=== PATIENT | male | born 1975 | race Caucasian/White ===

== ENCOUNTER 2018-06-08 05:06 | Emergency (ER) | payer BC ==
[2018-06-08 05:13] VITALS: RESP 16
[2018-06-08] MEDS ORDERED: SODIUM CHLORIDE 0.9% 1,000 ML IV STA (06:11)
[2018-06-08] MEDS ORDERED: MECLIZINE 12.5 MG TAB PO STA ×2 (06:11→08:00)
[2018-06-08] MEDS ORDERED: METOCLOPRAMIDE 5 MG/ML 2 ML VIAL IVP STA (06:12)
--- NOTE | 2018-06-08 06:16 | ED ---
General Adult HPI - General Chief complaint: Dizziness Stated complaint: dizziness Time Seen by Provider: 06/08/18 06:05 Source: patient, RN notes reviewed Mode of arrival: ambulatory Limitations: no limitations - History of Present Illness Initial comments: This is a 42-year-old male presents emergency Department chief complaint of dizziness, syncope. Patient states that he woke up this morning felt very dizzy as the room was spinning states that he stood up started walking and then he Was woken up by his on the ground. Patient states that he is unsure exactly what happened but feels that he passed out. Patient states she's never had this happen the past. Patient denies any chest pain or shortness of breath. Patient states that he did spit up some blood a day or 2 ago. He has admitted to epigastric discomfort for the last 3 days. He states he feels a pressure. He does have some GERD type symptoms. Patient denies fever, chills, recent URI symptoms, sinus congestion or ear pain. She has no change of bowel habits no dysuria. Patient states he has had intermittent headaches and went and saw his PCP who gave him naproxen and Flexeril. - Related Data Previous Rx's Medication Instructions Recorded Meclizine [Antivert] 25 mg PO TID PRN #15 tab 06/08/18 Allergies Allergy/AdvReac Type Severity Reaction Status Date / Time No Known Allergies Allergy Verified 06/08/18 08:22 Review of Systems ROS Statement: Those systems with pertinent positive or pertinent negative responses have been documented in the HPI. ROS Other: All systems not noted in ROS Statement are negative. Past Medical History Past Medical History: No Reported History History of Any Multi-Drug Resistant Organisms: None Reported Past Surgical History: Adenoidectomy, Hernia Repair Additional Past Surgical History / Comment(s): sinus surgery Past Anesthesia/Blood Transfusion Reactions: No Reported Reaction Past Psychological History: No Psychological Hx Reported Smoking Status: Never smoker Past Alcohol Use History: Rare Past Drug Use History: None Reported - Past Family History Father Family Medical History: Congestive Heart Failure (CHF) Additional Family Medical History / Comment(s): Father is 65 yrs old. Mother Family Medical History: No Reported History Additional Family Medical History / Comment(s): Mother is 63 yrs old. General Exam Limitations: no limitations General appearance: alert, in no apparent distress Head exam: Present: atraumatic, normocephalic, normal inspection Eye exam: Present: normal appearance, PERRL, EOMI. Absent: scleral icterus, conjunctival injection, periorbital swelling ENT exam: Present: normal exam, normal oropharynx, mucous membranes moist Neck exam: Present: normal inspection, full ROM. Absent: tenderness, meningismus, lymphadenopathy Respiratory exam: Present: normal lung sounds bilaterally. Absent: respiratory distress, wheezes, rales, rhonchi, stridor Cardiovascular Exam: Present: regular rate, normal rhythm, normal heart sounds. Absent: systolic murmur, diastolic murmur, rubs, gallop, clicks GI/Abdominal exam: Present: soft, tenderness (Mild diffuse with moderate epigastric), normal bowel sounds. Absent: distended, guarding, rebound, rigid Neurological exam: Present: alert, oriented X3, CN II-XII intact, reflexes normal. Absent: motor sensory deficit Skin exam: Present: warm, dry, intact, normal color. Absent: rash Course Vital Signs 06/08/18 06/08/18 06/08/18 05:08 06:52 08:26 Temperature 97.4 F L 97.2 F L Pulse Rate 75 77 Pulse Rate [ 76 Sitting] Pulse Rate [ 75 Standing] Pulse Rate [ 68 Supine] Respiratory 16 16 Rate Blood Pressure 152/87 134/79 Blood Pressure 131/84 [Sitting] Blood Pressure 134/88 [Standing] Blood Pressure 123/60 [Supine] O2 Sat by Pulse 100 99 Oximetry Medical Decision Making - Medical Decision Making 42-year-old male present emergency from for dizziness. Patient symptoms seem to be related to vertigo. Patient symptoms are worse with movement better at rest patient had normal lab work, EKG. Patient did have CT but did not reveal any mass. Does have mild atrophy noted. Patient will be discharged on Antivert return parameters were discussed. - Lab Data Result diagrams: 06/08/18 05:28 06/08/18 05:28 Lab Results 06/08/18 06/08/18 06/08/18 Range/Units 05:28 05:28 05:28 WBC 6.3 (3.8-10.6) k/uL RBC 5.43 (4.30-5.90) m/uL Hgb 15.8 (13.0-17.5) gm/dL Hct 46.2 (39.0-53.0) % MCV 85.0 (80.0-100.0) fL MCH 29.0 (25.0-35.0) pg MCHC 34.1 (31.0-37.0) g/dL RDW 13.8 (11.5-15.5) % Plt Count 212 (150-450) k/uL Neutrophils % 59 % Lymphocytes % 31 % Monocytes % 7 % Eosinophils % 2 % Basophils % 1 % Neutrophils # 3.7 (1.3-7.7) k/uL Lymphocytes # 1.9 (1.0-4.8) k/uL Monocytes # 0.4 (0-1.0) k/uL Eosinophils # 0.1 (0-0.7) k/uL Basophils # 0.0 (0-0.2) k/uL PT 9.7 (9.0-12.0) sec INR 1.0 (<1.2) APTT 23.0 (22.0-30.0) sec D-Dimer 0.22 (<0.60) mg/L FEU Sodium 141 (137-145) mmol/L Potassium 4.2 (3.5-5.1) mmol/L Chloride 106 (98-107) mmol/L Carbon Dioxide 25 (22-30) mmol/L Anion Gap 10 mmol/L BUN 12 (9-20) mg/dL Creatinine 0.71 (0.66-1.25) mg/dL Est GFR (CKD-EPI)AfAm >90 (>60 ml/min/1.73 sqM) Est GFR (CKD-EPI)NonAf >90 (>60 ml/min/1.73 sqM) Glucose 139 H (74-99) mg/dL Calcium 9.1 (8.4-10.2) mg/dL Total Bilirubin 1.0 (0.2-1.3) mg/dL AST 50 (17-59) U/L ALT 94 H (21-72) U/L Alkaline Phosphatase 69 (38-126) U/L Troponin I (0.000-0.034) ng/mL Total Protein 7.6 (6.3-8.2) g/dL Albumin 4.4 (3.5-5.0) g/dL Lipase 99 (23-300) U/L Urine Color Urine Appearance (Clear) Urine pH (5.0-8.0) Ur Specific [place] (1.001-1.035) Urine Protein (Negative) Urine Glucose (UA) (Negative) Urine Ketones (Negative) Urine Blood (Negative) Urine Nitrite (Negative) Urine Bilirubin (Negative) Urine Urobilinogen (<2.0) mg/dL Ur Leukocyte Esterase (Negative) 06/08/18 06/08/18 Range/Units 05:28 06:43 WBC (3.8-10.6) k/uL RBC (4.30-5.90) m/uL Hgb (13.0-17.5) gm/dL Hct (39.0-53.0) % MCV (80.0-100.0) fL MCH (25.0-35.0) pg MCHC (31.0-37.0) g/dL RDW (11.5-15.5) % Plt Count (150-450) k/uL Neutrophils % % Lymphocytes % % Monocytes % % Eosinophils % % Basophils % % Neutrophils # (1.3-7.7) k/uL Lymphocytes # (1.0-4.8) k/uL Monocytes # (0-1.0) k/uL Eosinophils # (0-0.7) k/uL Basophils # (0-0.2) k/uL PT (9.0-12.0) sec INR (<1.2) APTT (22.0-30.0) sec D-Dimer (<0.60) mg/L FEU Sodium (137-145) mmol/L Potassium (3.5-5.1) mmol/L Chloride (98-107) mmol/L Carbon Dioxide (22-30) mmol/L Anion Gap mmol/L BUN (9-20) mg/dL Creatinine (0.66-1.25) mg/dL Est GFR (CKD-EPI)AfAm (>60 ml/min/1.73 sqM) Est GFR (CKD-EPI)NonAf (>60 ml/min/1.73 sqM) Glucose (74-99) mg/dL Calcium (8.4-10.2) mg/dL Total Bilirubin (0.2-1.3) mg/dL AST (17-59) U/L ALT (21-72) U/L Alkaline Phosphatase (38-126) U/L Troponin I <0.012 (0.000-0.034) ng/mL Total Protein (6.3-8.2) g/dL Albumin (3.5-5.0) g/dL Lipase (23-300) U/L Urine Color Yellow Urine Appearance Clear (Clear) Urine pH 6.5 (5.0-8.0) Ur Specific [place] 1.015 (1.001-1.035) Urine Protein Negative (Negative) Urine Glucose (UA) Trace H (Negative) Urine Ketones Negative (Negative) Urine Blood Negative (Negative) Urine Nitrite Negative (Negative) Urine Bilirubin Negative (Negative) Urine Urobilinogen <2.0 (<2.0) mg/dL Ur Leukocyte Esterase Negative (Negative) Disposition Clinical Impression: Vertigo Disposition: HOME SELF-CARE Condition: Stable Instructions: Dizziness (ED) Additional Instructions: Please return to the Emergency Department if symptoms worsen or any other concerns. Prescriptions: Meclizine [Antivert] 25 mg PO TID PRN #15 tab PRN Reason: Vertigo Is patient prescribed a controlled substance at d/c from ED?: No Referrals: Ema Mccall MD [Primary Care Provider] - 1-2 days Time of Disposition: 09:20
[2018-06-08 07:04] LABS: Appearance,Urine Clear (Clear); Bilirubin,Urine Negative (Negative); Blood,Urine Negative (Negative); Color,Urine Yellow; Glucose,Urine (UA) Trace (Negative); Ketones,Urine Negative (Negative); Leukocyte Esterase,Urine Negative (Negative); Nitrite,Urine Negative (Negative); PH, Urine 6.5 (5.0-8.0); Protein,Urine Negative (Negative); Specific Gravity,Urine 1.015 (1.001-1.035); Urobilinogen,Urine <2.0 mg/dL (<2.0)
[2018-06-08 07:11] LABS: ALT 94 U/L (21-72); AST 50 U/L (17-59); Albumin 4.4 g/dL (3.5-5.0); Alkaline Phosphatase 69 U/L (38-126); Anion Gap 10 mmol/L; Blood Urea Nitrogen 12 mg/dL (9-20); Calcium 9.1 mg/dL (8.4-10.2); Carbon Dioxide 25 mmol/L (22-30); Chloride 106 mmol/L (98-107); Glucose 139 mg/dL (74-99); Lipase 99 U/L (23-300); Potassium 4.2 mmol/L (3.5-5.1); Sodium 141 mmol/L (137-145); Total Protein 7.6 g/dL (6.3-8.2)
[2018-06-08 07:17] LABS: D-Dimer 0.22 mg/L FEU (<0.60); Prothrombin Time 9.7 sec (9.0-12.0)
[2018-06-08 07:29] LABS: Basophils % (A) 1 %; Eosinophils # (A) 0.1 k/uL (0-0.7); Eosinophils % (A) 2 %; HCT 46.2 % (39.0-53.0); HGB 15.8 gm/dL (13.0-17.5); Lymphocytes # (A) 1.9 k/uL (1.0-4.8); Lymphocytes % (A) 31 %; MCHC 34.1 g/dL (31.0-37.0); Monocytes # (A) 0.4 k/uL (0-1.0); Monocytes % (A) 7 %; Neutrophils # (A) 3.7 k/uL (1.3-7.7); Neutrophils % (A) 59 %; Platelet Count 212 k/uL (150-450); RBC 5.43 m/uL (4.30-5.90); RDW 13.8 % (11.5-15.5); WBC 6.3 k/uL (3.8-10.6)
[2018-06-08] MEDS ORDERED: ONDANSETRON 4 MG/2 ML VIAL IVP STA (08:00)
--- NOTE | 2018-06-08 08:59 | CT ---
EXAMINATION TYPE: CT brain wo con DATE OF EXAM: 06/08/2018 COMPARISON: None. HISTORY: Syncope and collapse, headache for [address] DLP: 1269 mGycm. Automated Exposure Control for Dose Reduction was Utilized. TECHNIQUE: CT scan of the head is performed without contrast. FINDINGS: There is no acute intracranial hemorrhage or midline shift identified. Mild ventricular a nd sulcal prominence is present. Septum pellucidum vergae is noted. The globes are intact and the vi sualized sinuses are clear. Calvarium is intact. IMPRESSION: No acute intracranial hemorrhage or midline shift is seen. Incidental mild diffuse cereb ral atrophy.
[2018-06-08 09:29] VITALS: BP 115/70; PULSE 70; TEMP 97.9
== END 2018-06-08 09:28 | disposition home or self-care (01) ==
LOC: EC 05:06
DX: R42 Dizziness and giddiness (principal); G31.9 Degenerative disease of nervous system, unspecified; R51 Headache
CPT/HCPCS: 36415; 93005; 85379; 80053; 83690; 84484; 85025; 85610; 85730; 81003; 70450; 99284; 96374; 96375; 96361 ×3; J2765; J2405

== ENCOUNTER → 2018-11-22 | Outpatient (CLI) | payer OTHER ==
--- NOTE | 2018-11-22 15:10 | CT ---
EXAMINATION TYPE: CT brain cspine wo con DATE OF EXAM: 11/22/2018 COMPARISON: 06/08/2018 HISTORY: Fall. Head and neck pain. CT DLP: 2187 mGycm. Automated Exposure Control for Dose Reduction was Utilized. TECHNIQUE: CT scan of the head and cervical spine are performed without contrast. FINDINGS: There is no acute intracranial hemorrhage, mass effect, or midline shift identified. The ventricles and sulci are symmetrically prominent compatible with mild cerebral volume loss as seen on the prior. The globes are intact and the visualized sinuses are clear. Incidental note of a normal variant cav um septum pellucidum et verge. There is leftward nasal septal deviation and postsurgical change of the right nasal turbinates. Cervical spine is visualized in its entirety from C1 through upper thoracic levels and demonstrates s atisfactory alignment without evidence of acute fracture or dislocation. Prevertebral soft tissue ap pears within normal limits. The C1-C2 articulation is unremarkable. Multiple tonsilloliths are inci dentally noted. There is slight reversal of usual cervical lordosis. Anterior osteophytes are seen at the 4 C5. Small posterior disc osteophyte complex is also seen at this level without gross evidence of spinal canal stenosis. Minimal uncovertebral hypertrophy is noted. IMPRESSION: 1. There is no acute fracture or dislocation evident in the cervical spine. 2. No acute intracranial hemorrhage, mass effect, or midline shift is seen. 3. Mild cerebral atrophy is slightly out of proportion to the patient's age although unchanged from t he prior exam. 4. Mild multilevel degenerative disc disease of the cervical spine and reversal usual cervical lordos is that may be on the basis of muscular sprain, spasm or patient positioning.
--- NOTE | 2018-11-22 15:32 | XR ---
EXAMINATION TYPE: XR shoulder complete RT, XR scapula RT, XR clavicle RT DATE OF EXAM: 11/22/2018 CLINICAL HISTORY: Slip and fall injury today with pain TECHNIQUE: Three views of the right shoulder are obtained. 2 views of right scapula and 2 views righ t clavicle are obtained COMPARISON: None. FINDINGS: There is no acute fracture/dislocation evident in the right shoulder. Mild narrowing and s purring at acromioclavicular joint is present. Glenohumeral joint is maintained. The visualized ribs are intact and unremarkable. Images of right scapula show no acute displaced fracture. Overlying soft tissue is unremarkable. Images of right clavicle show no acute fracture. Supraclavicular soft tissue is unremarkable. IMPRESSION: There is no acute fracture or dislocation in the right clavicle, scapula, or shoulder.
--- NOTE | 2018-11-22 15:33 | XR ---
EXAMINATION TYPE: XR humerus RT DATE OF EXAM: 11/22/2018 CLINICAL HISTORY: Fall injury with pain TECHNIQUE: Two views of the right humerus are obtained. COMPARISON: Same day right shoulder x-ray.. FINDINGS: There is no acute fracture or dislocation seen in the right humerus. Mild spurring of righ t elbow joint is present. The overlying soft tissue appears within normal limits. IMPRESSION: No acute fracture or dislocation is evident in the right humerus.
--- NOTE | 2018-11-22 15:34 | XR ---
EXAMINATION TYPE: XR femur RT DATE OF EXAM: 11/22/2018 CLINICAL HISTORY: Fall with subsequent right femur pain. TECHNIQUE: Two views of the right femur are obtained. COMPARISON: None FINDINGS: There is no acute fracture or dislocation seen in the right femur. The right hip and knee joints appear within normal limits. The overlying soft tissue appears unremarkable. Small osteophyt es are seen at the chondral labral junction of the superior acetabulum. IMPRESSION: There is no acute fracture or dislocation in the right femur. Small osteophytes of the r ight hip chondral labral junction are seen. If there is suspicion for labral tear MR arthrography cou ld be performed.
== END | disposition home or self-care (01) ==
LOC: RADCTMAIN 14:22
PROVIDERS: ATTEND Emergency Medicine
DX: S13.4XXA Sprain of ligaments of cervical spine, initial encounter (principal); G31.9 Degenerative disease of nervous system, unspecified; S70.11XA Contusion of right thigh, initial encounter; S40.011A Contusion of right shoulder, initial encounter
CPT/HCPCS: 70450; 72125

== ENCOUNTER → 2018-11-29 | Outpatient (CLI) | payer OTHER ==
--- NOTE | 2018-11-29 22:25 | MR ---
EXAMINATION TYPE: MR shoulder RT wo con DATE OF EXAM: 11/29/2018 COMPARISON: Right shoulder x-ray 1 week ago. HISTORY: Rt shoulder pain/limited movement, fell on ice 1 week ago TECHNIQUE: Multiplanar, multisequence imaging of the right shoulder is performed without contrast. FINDINGS: Rotator Cuff: Supraspinatus tendon shows increased signal distally without suspicious partial or full -thickness retracted tear. Infraspinatus tendon is intact. Subscapularis tendon is felt intact. Rotat or cuff muscle bulk is preserved. Acromioclavicular Joint: Mild narrowing and capsular hypertrophy is present. Inferior fat plane is ma intained. Distal acromion morphology is unremarkable. Glenohumeral Joint: There is small to moderate glenohumeral joint effusion. No significant spurring i s seen. Some subchondral cystic change anterior superior osseous glenoid is present Labrum: The superior labrum shows undercutting with increased fluid signal paracoronal image 12 suspi cious for tear. Biceps Tendon: The long head of biceps is in normal location within bicipital groove. Bone marrow signal:. Subchondral cystic change lateral humeral head is present. Other: No additional significant abnormality is appreciated. IMPRESSION: Probable superior labral tear. Mild tendinosis distal supraspinatus tendon without rotato r cuff tear.
== END | disposition home or self-care (01) ==
LOC: RADMRIMAIN 16:38
PROVIDERS: ATTEND Emergency Medicine
DX: M67.813 Other specified disorders of tendon, right shoulder (principal); S13.4XXD Sprain of ligaments of cervical spine, subsequent encounter; S70.11XD Contusion of right thigh, subsequent encounter

== ENCOUNTER 2019-04-22 12:38 | Emergency (ER) | payer BC, OTHER ==
[2019-04-22] MEDS ORDERED: SODIUM CHLORIDE 0.9% 500 ML 500 ML IV STA (13:14)
[2019-04-22] MEDS ORDERED: SODIUM CHLORIDE 0.9% 1,000 ML IV STA ×3 (13:14→14:53)
[2019-04-22 13:38] LABS: Basophils % (A) 1 %; Eosinophils # (A) 0.1 k/uL (0-0.7); Eosinophils % (A) 1 %; HCT 44.4 % (39.0-53.0); HGB 16.1 gm/dL (13.0-17.5); Lymphocytes # (A) 1.2 k/uL (1.0-4.8); Lymphocytes % (A) 23 %; MCH 29.8 pg (25.0-35.0); MCHC 36.3 g/dL (31.0-37.0); MCV 82.2 fL (80.0-100.0); Mean Platelet Volume 7.8; Monocytes # (A) 0.4 k/uL (0-1.0); Monocytes % (A) 7 %; Neutrophils # (A) 3.4 k/uL (1.3-7.7); Neutrophils % (A) 66 %; Platelet Count 144 k/uL (150-450); RBC 5.41 m/uL (4.30-5.90); RDW 14.7 % (11.5-15.5); WBC 5.2 k/uL (3.8-10.6)
[2019-04-22 13:57] LABS: ALT 53 U/L (21-72); AST 56 U/L (17-59); African American GFR (CKD) >90 (>60 ml/min/1.73 sqM); Albumin 4.5 g/dL (3.5-5.0); Alkaline Phosphatase 82 U/L (38-126); Anion Gap 12 mmol/L; Blood Urea Nitrogen 13 mg/dL (9-20); Calcium 8.9 mg/dL (8.4-10.2); Carbon Dioxide 21 mmol/L (22-30); Chloride 105 mmol/L (98-107); Creatine Kinase 793 U/L (55-170); Glucose 186 mg/dL (74-99); Magnesium 1.8 mg/dL (1.6-2.3); Phosphorus 4.4 mg/dL (2.5-4.5); Potassium 4.4 mmol/L (3.5-5.1); Sodium 138 mmol/L (137-145); Total Bilirubin 1.6 mg/dL (0.2-1.3); Total Protein 7.8 g/dL (6.3-8.2)
--- NOTE | 2019-04-22 14:10 | ED ---
Dizziness HPI - General Chief Complaint: Recheck/Abnormal Lab/Rx Stated Complaint: Abnormal Glucose Time Seen by Provider: 04/22/19 13:14 Source: patient, RN notes reviewed, old records reviewed Mode of arrival: ambulatory Limitations: no limitations - History of Present Illness Initial Comments: This is a 43-year-old male to ER for evaluation. This is evaluation regarding dizziness. Patient was sent ER for evaluation by [facility]. Patient is had 3 is a days with change of position dizziness lightheadedness occasional room spinning. No recent travel history no sick contacts no significant headaches. Patient again was seen at [facility] sent to ER secondary to elevated blood sugar, ketones in urine. Patient does admit to mild decreased appetite denies drug or alcohol abuse. Patient has no medical history takes no medications MD Complaint: dizziness, lightheadedness, other (Change of position) -: days(s) (3) Timing: gradual onset Description: lightheadedness History of Same: No History of Trauma: No Severity: mild Improves With: remaining still Worsens With: movement Associated Symptoms: denies other symptoms - Related Data Home Medications Medication Instructions Recorded Confirmed Ibuprofen [Motrin Ib] 400 mg PO Q8H 04/22/19 04/22/19 Allergies Allergy/AdvReac Type Severity Reaction Status Date / Time No Known Allergies Allergy Verified 04/22/19 15:04 Review of Systems ROS Statement: Those systems with pertinent positive or pertinent negative responses have been documented in the HPI. ROS Other: All systems not noted in ROS Statement are negative. Past Medical History Past Medical History: No Reported History History of Any Multi-Drug Resistant Organisms: None Reported Past Surgical History: Adenoidectomy, Hernia Repair Additional Past Surgical History / Comment(s): sinus surgery Past Anesthesia/Blood Transfusion Reactions: No Reported Reaction Past Psychological History: No Psychological Hx Reported Smoking Status: Never smoker Past Alcohol Use History: Rare Past Drug Use History: None Reported - Past Family History Father Family Medical History: Congestive Heart Failure (CHF) Additional Family Medical History / Comment(s): Father is 65 yrs old. Mother Family Medical History: No Reported History Additional Family Medical History / Comment(s): Mother is 63 yrs old. General Exam Limitations: no limitations General appearance: alert, in no apparent distress Head exam: Present: atraumatic, normocephalic, normal inspection Eye exam: Present: normal appearance, PERRL, EOMI. Absent: scleral icterus, conjunctival injection, periorbital swelling ENT exam: Present: normal exam, mucous membranes moist Neck exam: Present: normal inspection. Absent: tenderness, meningismus, lymphadenopathy Respiratory exam: Present: normal lung sounds bilaterally. Absent: respiratory distress, wheezes, rales, rhonchi, stridor Cardiovascular Exam: Present: regular rate, normal rhythm, normal heart sounds. Absent: systolic murmur, diastolic murmur, rubs, gallop, clicks GI/Abdominal exam: Present: soft, normal bowel sounds. Absent: distended, tenderness, guarding, rebound, rigid Extremities exam: Present: normal inspection, full ROM, normal capillary refill. Absent: tenderness, pedal edema, joint swelling, calf tenderness Back exam: Present: normal inspection Neurological exam: Present: alert, oriented X3, CN II-XII intact Psychiatric exam: Present: normal affect, normal mood Skin exam: Present: warm, dry, intact, normal color. Absent: rash Course Vital Signs 04/22/19 04/22/19 04/22/19 13:00 13:28 13:30 Temperature 98.3 F Pulse Rate 87 79 79 Respiratory 18 26 H 20 Rate Blood Pressure 131/86 127/76 O2 Sat by Pulse 96 95 94 L Oximetry - Reevaluation(s) Reevaluation #1: 04/22/19 15:15 Medical records reviewed Reevaluation #2: 04/22/19 15:15 Patient symptoms are improved with hydration, no active ataxia on ambulation. Medical Decision Making - Medical Decision Making 40 female the ER for evaluation. Patient symptoms are improved here in the ER encourage increase hydration. Patient can be discharged home - Lab Data Result diagrams: 04/22/19 13:20 04/22/19 13:20 Lab Results 04/22/19 04/22/19 04/22/19 Range/Units 13:20 13:20 13:20 WBC 5.2 (3.8-10.6) k/uL RBC 5.41 (4.30-5.90) m/uL Hgb 16.1 (13.0-17.5) gm/dL Hct 44.4 (39.0-53.0) % MCV 82.2 (80.0-100.0) fL MCH 29.8 (25.0-35.0) pg MCHC 36.3 (31.0-37.0) g/dL RDW 14.7 (11.5-15.5) % Plt Count 144 L (150-450) k/uL Neutrophils % 66 % Lymphocytes % 23 % Monocytes % 7 % Eosinophils % 1 % Basophils % 1 % Neutrophils # 3.4 (1.3-7.7) k/uL Lymphocytes # 1.2 (1.0-4.8) k/uL Monocytes # 0.4 (0-1.0) k/uL Eosinophils # 0.1 (0-0.7) k/uL Basophils # 0.0 (0-0.2) k/uL Sodium 138 (137-145) mmol/L Potassium 4.4 (3.5-5.1) mmol/L Chloride 105 (98-107) mmol/L Carbon Dioxide 21 L (22-30) mmol/L Anion Gap 12 mmol/L BUN 13 (9-20) mg/dL Creatinine 0.84 (0.66-1.25) mg/dL Est GFR (CKD-EPI)AfAm >90 (>60 ml/min/1.73 sqM) Est GFR (CKD-EPI)NonAf >90 (>60 ml/min/1.73 sqM) Glucose 186 H (74-99) mg/dL Calcium 8.9 (8.4-10.2) mg/dL Phosphorus 4.4 (2.5-4.5) mg/dL Magnesium 1.8 (1.6-2.3) mg/dL Total Bilirubin 1.6 H (0.2-1.3) mg/dL AST 56 (17-59) U/L ALT 53 (21-72) U/L Alkaline Phosphatase 82 (38-126) U/L Creatine Kinase 793 H (55-170) U/L Troponin I <0.012 (0.000-0.034) ng/mL Total Protein 7.8 (6.3-8.2) g/dL Albumin 4.5 (3.5-5.0) g/dL Acetone, Qual Negative (Negative) - Radiology Data Radiology results: report reviewed (CT brain negative for acute disease), image reviewed Disposition Clinical Impression: Hyperglycemia, Dehydration, Dizziness Disposition: HOME SELF-CARE Condition: Good Instructions (If sedation given, give patient instructions): Vertigo (ED), Nondiabetic Hyperglycemia (ED), Dizziness (ED) Is patient prescribed a controlled substance at d/c from ED?: No Referrals: Ema Mccall MD [Primary Care Provider] - 1-2 days
--- NOTE | 2019-04-22 14:12 | CT ---
EXAMINATION TYPE: CT brain wo con DATE OF EXAM: 04/22/2019 COMPARISON: November 22, 2018 HISTORY: Pain Unenhanced CT of the brain was performed. The ventricles, basal cisterns and sulci overlying the cerebral convexities demonstrate a normal appe arance. There is no evidence for intracranial hemorrhage or sulcal effacement. No mass effects are seen. Osseous calvarium is intact. If symptoms persist consider MRI as clinically warranted. IMPRESSION: 1. No acute intracranial process is seen at this time.
[2019-04-22] MEDS ORDERED: MECLIZINE 12.5 MG TAB PO STA (14:53)
[2019-04-22] MEDS ORDERED: ONDANSETRON 4 MG/2 ML VIAL IVP STA (14:53)
[2019-04-22 15:58] VITALS: BP 116/75; PULSE 80; RESP 16; TEMP 98
== END 2019-04-22 15:58 | disposition home or self-care (01) ==
LOC: EC 12:38
DX: R73.9 Hyperglycemia, unspecified (principal); E86.0 Dehydration; R42 Dizziness and giddiness; R63.0 Anorexia; Z79.1 Long term (current) use of non-steroidal anti-inflammatories (NSAID); Z53.8 Procedure and treatment not carried out for other reasons
CPT/HCPCS: 36415; 70450; 80053; 82009; 82550; 83735; 84100; 84484; 85025; 93005; 96360; 96361; 99284

== ENCOUNTER 2020-02-02 10:35 | Emergency (ER) | payer OTHER ==
[2020-02-02] MEDS ORDERED: KETOROLAC 30 MG/ML 1 ML VIAL IVP STA (10:37)
--- NOTE | 2020-02-02 10:44 | ED ---
Chest Pain HPI - General Stated Complaint: Chest pain Time Seen by Provider: 02/02/20 10:35 Source: patient, EMS, RN notes reviewed, Caregiver - History of Present Illness Initial Comments: This a 44-year-old male with a benign past medical history states he had the onset of moderate left-sided sharp chest pain and just after 9:00 this morning while he was on break at work he works as a hiatal services delivery driver. He states the pain was 6/10 in severity radiated from his left chest around to his left shoulder blade. Increase with movement and deep breathing. No recent fevers chills nausea vomiting sweats cough or phlegm production he is a nonsmoker. No trauma no heavy lifting. He states he is somewhat this in the past undiagnosed. No family history of heart disease early age no other modifying factors at this time. MD Complaint: chest pain - Related Data Home Medications Medication Instructions Recorded Confirmed Multivitamins, Thera [Multivitamin 1 tab PO W/LUNCH 02/02/20 02/02/20 (formulary)] Previous Rx's Medication Instructions Recorded Azithromycin [Zithromax Z-pack] 250 mg PO DIRECTED #6 tab 02/02/20 Ibuprofen 800 mg PO Q6HR PRN #20 tablet 02/02/20 Orphenadrine [Norflex] 100 mg PO Q12H #7 tablet.er 02/02/20 Allergies Allergy/AdvReac Type Severity Reaction Status Date / Time No Known Allergies Allergy Verified 02/02/20 11:19 Review of Systems ROS Statement: Those systems with pertinent positive or pertinent negative responses have been documented in the HPI. ROS Other: All systems not noted in ROS Statement are negative. EKG Findings - EKG Results: EKG: interpreted by CATY BRENNAN, sinus rhythm, normal axis, normal QRS, no acute changes (Normal sinus rhythm 85. Interval 144 QRS 104 QT/QTC 364/433) Past Medical History Past Medical History: No Reported History History of Any Multi-Drug Resistant Organisms: None Reported Past Surgical History: Adenoidectomy, Hernia Repair Additional Past Surgical History / Comment(s): sinus surgery Past Anesthesia/Blood Transfusion Reactions: No Reported Reaction Past Psychological History: No Psychological Hx Reported Smoking Status: Never smoker Past Alcohol Use History: Rare Past Drug Use History: None Reported - Past Family History Father Family Medical History: Congestive Heart Failure (CHF) Additional Family Medical History / Comment(s): Father is 65 yrs old. Mother Family Medical History: No Reported History Additional Family Medical History / Comment(s): Mother is 63 yrs old. General Exam - General Exam Comments Initial Comments: This is a well-developed well-nourished awake alert oriented 3 male General appearance: alert, in no apparent distress Head exam: Present: atraumatic, normocephalic, normal inspection Eye exam: Present: normal appearance, PERRL, EOMI. Absent: scleral icterus, conjunctival injection, periorbital swelling ENT exam: Present: normal exam, mucous membranes moist Neck exam: Present: normal inspection, full ROM, other. Absent: tenderness, meningismus, lymphadenopathy Respiratory exam: Present: normal lung sounds bilaterally, chest wall tenderness (No stridor JVD or bruits is tenderness palpation along the left costal sternal margin no step-off or crepitation however.). Absent: respiratory distress, wheezes, rales, rhonchi, stridor Cardiovascular Exam: Present: regular rate, normal rhythm, normal heart sounds. Absent: systolic murmur, diastolic murmur, rubs, gallop, clicks GI/Abdominal exam: Present: soft, normal bowel sounds. Absent: distended, tenderness, guarding, rebound, rigid Extremities exam: Present: normal inspection, full ROM, normal capillary refill. Absent: tenderness, pedal edema, joint swelling, calf tenderness Back exam: Present: normal inspection, tenderness (Tenderness palpation over the left scapular paraspinous muscles) Neurological exam: Present: alert, oriented X3, CN II-XII intact Psychiatric exam: Present: normal affect, normal mood Skin exam: Present: warm, dry, intact, normal color. Absent: rash Course Vital Signs 02/02/20 10:44 Temperature 98 F Pulse Rate 84 Respiratory 18 Rate Blood Pressure 128/84 O2 Sat by Pulse 97 Oximetry Chest Pain MDM - MDM I did discuss Pfizer the patient initially did not get much relief from the Toradol but Norflex and helped him quite a bit. The presentation is consistent with musculoskeletal pain and costochondritis she will be discharged on anti- inflammatories as well as muscle relaxers he is a follow-up with his doctor return when necessary additionally x-ray did show some evidence of a possible developing pneumonia though the patient's had no fevers chills no sweats no cough or phlegm production. Discussed that he'll get a prescription for an antibiotic to be taken should he started developing symptoms. He is in agreement with this. Disposition Clinical Impression: Costochondritis, Chest wall syndrome Disposition: HOME SELF-CARE Condition: Good Instructions (If sedation given, give patient instructions): Costochondritis (ED), Chest Wall Pain (ED) Prescriptions: Ibuprofen 800 mg PO Q6HR PRN #20 tablet PRN Reason: Pain Orphenadrine [Norflex] 100 mg PO Q12H #7 tablet.er Azithromycin [Zithromax Z-pack] 250 mg PO DIRECTED #6 tab Is patient prescribed a controlled substance at d/c from ED?: No Referrals: Ema Mccall MD [Primary Care Provider] - 1-2 days
[2020-02-02 10:49] VITALS: RESP 18
[2020-02-02 11:06] LABS: Basophils % (A) 0 %; Eosinophils # (A) 0.1 k/uL (0-0.7); Eosinophils % (A) 1 %; HCT 44.7 % (39.0-53.0); HGB 15.4 gm/dL (13.0-17.5); Hyperchromasia Slight; Lymphocytes # (A) 1.6 k/uL (1.0-4.8); Lymphocytes % (A) 21 %; MCHC 34.5 g/dL (31.0-37.0); MCV 84.2 fL (80.0-100.0); Mean Platelet Volume 8.3; Monocytes # (A) 0.3 k/uL (0-1.0); Monocytes % (A) 4 %; Neutrophils # (A) 5.5 k/uL (1.3-7.7); Neutrophils % (A) 72 %; Platelet Count 192 k/uL (150-450); RBC 5.32 m/uL (4.30-5.90); RDW 13.1 % (11.5-15.5); WBC 7.6 k/uL (3.8-10.6)
[2020-02-02 11:16] LABS: ALT 53 U/L (4-49); AST 31 U/L (17-59); African American GFR (CKD) >90 (>60 ml/min/1.73 sqM); Albumin 4.4 g/dL (3.5-5.0); Alkaline Phosphatase 114 U/L (38-126); Anion Gap 7 mmol/L; Blood Urea Nitrogen 17 mg/dL (9-20); Calcium 8.8 mg/dL (8.4-10.2); Carbon Dioxide 22 mmol/L (22-30); Chloride 103 mmol/L (98-107); Creatine Kinase 79 U/L (55-170); Glucose 297 mg/dL (74-99); Magnesium 1.8 mg/dL (1.6-2.3); Non-African American GFR(CKD) >90 (>60 ml/min/1.73 sqM); Potassium 4.4 mmol/L (3.5-5.1); Sodium 132 mmol/L (137-145); Total Bilirubin 0.8 mg/dL (0.2-1.3); Total Protein 7.5 g/dL (6.3-8.2)
--- NOTE | 2020-02-02 11:20 | XR ---
EXAMINATION TYPE: XR chest 2V DATE OF EXAM: 02/02/2020 COMPARISON: 03/31/2016 HISTORY: Chest pain TECHNIQUE: Frontal and lateral views of the chest are obtained. FINDINGS: Focal opacity right mid lung zone as well as increased markings at the lung bases may reflect develop ing infiltrate. Correlate clinically. No evidence for pneumothorax. No pleural effusion. The cardiac silhouette size is within normal limits. The osseous structures are grossly intact. IMPRESSION: 1. Focal opacity right mid lung zone as well as increased markings at the lung bases may reflect dev eloping infiltrate. Correlate clinically.
[2020-02-02 11:24] LABS: D-Dimer 0.34 mg/L FEU (<0.60); INR 0.9 (<1.2); Partial Thromboplastin Time 22.5 sec (22.0-30.0); Prothrombin Time 9.7 sec (9.0-12.0)
[2020-02-02] MEDS ORDERED: ORPHENADRINE 30 MG/ML 2 ML VIAL IVP STA (11:54)
[2020-02-02 13:25] VITALS: BP 136/86; PULSE 82; TEMP 98.1
== END 2020-02-02 13:25 | disposition home or self-care (01) ==
LOC: EC 10:35
DX: M94.0 Chondrocostal junction syndrome [Tietze] (principal)
CPT/HCPCS: 36415; 93005; 85379; 83880; 80053; 82550; 83690; 83735; 84484; 85025; 85610; 85730; 71046; 99284; 96374; 96375; J2360; J1885

== ENCOUNTER 2021-09-24 01:43 | Emergency (ER) | payer OTHER ==
[2021-09-24 01:57] VITALS: BP 134/95; PULSE 104; RESP 18; TEMP 98.3
[2021-09-24] MEDS ORDERED: IBUPROFEN 800 MG TAB PO STA (02:42)
[2021-09-24] MEDS ORDERED: ACETAMINOPHEN TAB 500 MG TAB PO STA (02:42)
--- NOTE | 2021-09-24 02:42 | ED ---
Weakness HPI - General Chief complaint: Recheck/Abnormal Lab/Rx Stated complaint: muscle pain Time Seen by Provider: 09/24/21 02:20 Source: patient, EMS, RN notes reviewed, old records reviewed Mode of arrival: EMS Limitations: no limitations - History of Present Illness Initial comments: This is a 45-year-old male DF for evaluation of significant back pain abdominal pain leg pain myalgias body aches pains chills no fevers. No recent travel history or sick contacts. Patient does not feel significantly well. Patient has no known significant coronavirus exposure MD Complaint: generalized weakness, lack of energy, difficulty walking -: days(s) Location: generalized Severity: moderate Severity scale (1-10): 4 Quality: tingling, numbness, aching Consistency: constant Improves with: none Context: recent illness Associated Symptoms: fever/chills, nausea/vomiting, myalgias - Related Data Previous Rx's Medication Instructions Recorded Nystatin [Nystatin Oral Susp] 6 ml PO QID 10 Days #250 ml 10/03/21 Allergies Allergy/AdvReac Type Severity Reaction Status Date / Time No Known Allergies Allergy Verified 10/06/21 15:19 Review of Systems ROS Statement: Those systems with pertinent positive or pertinent negative responses have been documented in the HPI. ROS Other: All systems not noted in ROS Statement are negative. Past Medical History Past Medical History: No Reported History History of Any Multi-Drug Resistant Organisms: None Reported Past Surgical History: Adenoidectomy, Hernia Repair Additional Past Surgical History / Comment(s): sinus surgery Past Anesthesia/Blood Transfusion Reactions: No Reported Reaction Past Psychological History: No Psychological Hx Reported Smoking Status: Never smoker Past Alcohol Use History: Rare Past Drug Use History: None Reported - Past Family History Father Family Medical History: Congestive Heart Failure (CHF) Additional Family Medical History / Comment(s): Father is 65 yrs old. Mother Family Medical History: No Reported History Additional Family Medical History / Comment(s): Mother is 63 yrs old. General Exam Limitations: no limitations General appearance: alert, in no apparent distress Head exam: Present: atraumatic, normocephalic, normal inspection Eye exam: Present: normal appearance, PERRL, EOMI. Absent: scleral icterus, conjunctival injection, periorbital swelling ENT exam: Present: normal exam, mucous membranes moist Neck exam: Present: normal inspection. Absent: tenderness, meningismus, lymphadenopathy Respiratory exam: Present: normal lung sounds bilaterally. Absent: respiratory distress, wheezes, rales, rhonchi, stridor Cardiovascular Exam: Present: regular rate, normal rhythm, normal heart sounds. Absent: systolic murmur, diastolic murmur, rubs, gallop, clicks GI/Abdominal exam: Present: soft, normal bowel sounds. Absent: distended, tenderness, guarding, rebound, rigid Extremities exam: Present: normal inspection, full ROM, normal capillary refill. Absent: tenderness, pedal edema, joint swelling, calf tenderness Back exam: Present: normal inspection Neurological exam: Present: alert, oriented X3, CN II-XII intact Psychiatric exam: Present: normal affect, normal mood Skin exam: Present: warm, dry, intact, normal color. Absent: rash Course Vital Signs 09/24/21 01:52 Temperature 98.3 F Pulse Rate 104 H Respiratory 18 Rate Blood Pressure 134/95 O2 Sat by Pulse 98 Oximetry - Reevaluation(s) Reevaluation #1: Medical record is reviewed Patient symptoms are significantly improved here in the ER Patient informed results and questions answered Medical Decision Making - Medical Decision Making 45 male to the ER with coronavirus symptoms and findings. Patient is negative for coronavirus here in the ER and can be discharged home - Lab Data Lab Results 09/24/21 09/24/21 Range/Units 03:06 04:15 Coronavirus (PCR) Not Detected Not Detected (Not Detectd) Disposition Clinical Impression: Viral infection Disposition: HOME SELF-CARE Condition: Good Instructions (If sedation given, give patient instructions): Coronavirus Disease 2019 (COVID-19) Is patient prescribed a controlled substance at d/c from ED?: No Referrals: Ema Mccall MD [Primary Care Provider] - 1-2 days
[2021-09-24] MEDS ORDERED: dexAMETHasone 2 MG TAB PO STA (03:56)
[2021-09-24] MEDS ORDERED: KETOROLAC 30 MG/ML 1 ML VIAL IM STA (03:56)
--- NOTE | 2021-09-24 04:49 | XR ---
EXAMINATION TYPE: XR chest 1V portable DATE OF EXAM: 09/24/2021 COMPARISON: 02/02/2020 HISTORY: Chest pain TECHNIQUE: FINDINGS: There is no heart failure nor confluent pneumonic infiltrate. Costophrenic angles are clear . Heart size is normal. Bony thorax is intact. IMPRESSION: No active cardiopulmonary disease. No change.
== END 2021-09-24 05:02 | disposition home or self-care (01) ==
LOC: EC 01:43
DX: B34.9 Viral infection, unspecified (principal)
CPT/HCPCS: 87635; 71045; 99284; 96372; U0003; U0005; J1885; J8540

== ENCOUNTER 2021-10-03 06:42 | Emergency (ER) | payer OTHER ==
[2021-10-03] MEDS ORDERED: KETOROLAC 15 MG/ML 1 ML VIAL IVP STA (07:01)
[2021-10-03] MEDS ORDERED: SODIUM CHLORIDE 0.9% 1,000 ML IV STA (07:01)
[2021-10-03 07:48] LABS: Basophils % (A) 0 %; Eosinophils # (A) 0.1 k/uL (0-0.7); Eosinophils % (A) 1 %; HCT 49.3 % (39.0-53.0); HGB 17.5 gm/dL (13.0-17.5); Lymphocytes % (A) 10 %; MCH 30.2 pg (25.0-35.0); MCHC 35.5 g/dL (31.0-37.0); MCV 85.1 fL (80.0-100.0); Mean Platelet Volume 8.7; Monocytes # (A) 0.6 k/uL (0-1.0); Monocytes % (A) 6 %; Neutrophils # (A) 7.7 k/uL (1.3-7.7); Neutrophils % (A) 82 %; Platelet Count 158 k/uL (150-450); RBC 5.79 m/uL (4.30-5.90); WBC 9.5 k/uL (3.8-10.6)
[2021-10-03 08:08] LABS: ALT 108 U/L (4-49); AST 237 U/L (17-59); African American GFR (CKD) >90 (>60 ml/min/1.73 sqM); Albumin 3.4 g/dL (3.5-5.0); Alkaline Phosphatase 78 U/L (38-126); Anion Gap 10 mmol/L; Blood Urea Nitrogen 15 mg/dL (9-20); C Reactive Protein 3.1 mg/dL (<1.0); Calcium 8.3 mg/dL (8.4-10.2); Carbon Dioxide 21 mmol/L (22-30); Chloride 99 mmol/L (98-107); Glucose 312 mg/dL (74-99); LDH 1178 U/L (313-618); Non-African American GFR(CKD) >90 (>60 ml/min/1.73 sqM); Potassium 4.4 mmol/L (3.5-5.1); Sodium 130 mmol/L (137-145); Total Bilirubin 0.7 mg/dL (0.2-1.3); Total Protein 6.2 g/dL (6.3-8.2)
--- NOTE | 2021-10-03 10:37 | XR ---
EXAMINATION TYPE: XR chest 2V DATE OF EXAM: 10/03/2021 COMPARISON: NONE TECHNIQUE: PA and lateral views submitted. HISTORY: Muscle weakness FINDINGS: The lungs are clear and there is no pneumothorax, pleural effusion, or focal pneumonia. Heart size normal. No overt failure. Biapical pleural thickening. IMPRESSION: 1. No acute process.
--- NOTE | 2021-10-03 10:49 | US ---
EXAMINATION TYPE: US gallbladder DATE OF EXAM: 10/03/2021 COMPARISON: NONE CLINICAL HISTORY: elevated liver enzyme. Abnormal labs with diffuse pain for the past 2 weeks EXAM MEASUREMENTS: Liver Length: 19.6 cm Gallbladder Wall: 0.2 cm CBD: 0.4 cm Right Kidney: 14.2 x 5.3 x 6.4 cm Pancreas: Tail obscured by overlying bowel gas Liver: Increased attenuation, decreased visualization of vessels suggestive of fatty infiltrate Gallbladder: No stones seen Evidence for sonographic Moran's sign: No CBD: wnl Right Kidney: No hydronephrosis or masses seen Limited exam due to patient body habitus, bowel gas . Visualized liver heterogeneously hyperechoic. Evaluation for focal masses suboptimal due to the heter ogeneity. Finding likely on basis of diffuse fatty infiltration. No surrounding ascites. Gallbladder seen without shadowing mobile gallstones. No right-sided hydronephrosis. IMPRESSION: Suboptimal study. Heterogeneous hyperechoic appearance of liver consistent with diffuse f atty infiltration and/or underlying hepatocellular disease.
--- NOTE | 2021-10-03 11:15 | ED ---
Recheck HPI - General Chief Complaint: Recheck/Abnormal Lab/Rx Stated Complaint: Joint Pain, Light Headed Time Seen by Provider: 10/03/21 06:52 Source: patient, RN notes reviewed Mode of arrival: ambulatory Limitations: no limitations - History of Present Illness Initial Comments: Patient is a 45-year-old male that presents to the emergency department c omplaining of generalized muscle aches and fatigue. He notes he was seen approximately a week ago tested for Covid was negative. He notes he came back in today for continuing symptoms. He notes that he regularly works out has a home gym in his kitchen and living room. He notes that he and his son are both in the health and fitness. Patient otherwise stated that he felt okay. He denied any chest pain shortness of breath headache nausea vomiting diarrhea constipation fever fatigue chills. - Related Data Home Medications Medication Instructions Recorded Confirmed No Known Home Medications 10/03/21 10/03/21 Allergies Allergy/AdvReac Type Severity Reaction Status Date / Time No Known Allergies Allergy Verified 10/03/21 09:17 Review of Systems ROS Statement: Those systems with pertinent positive or pertinent negative responses have been documented in the HPI. ROS Other: All systems not noted in ROS Statement are negative. Past Medical History Past Medical History: No Reported History History of Any Multi-Drug Resistant Organisms: None Reported Past Surgical History: Adenoidectomy, Hernia Repair Additional Past Surgical History / Comment(s): sinus surgery Past Anesthesia/Blood Transfusion Reactions: No Reported Reaction Past Psychological History: No Psychological Hx Reported Smoking Status: Never smoker Past Alcohol Use History: Rare Past Drug Use History: None Reported - Past Family History Father Family Medical History: Congestive Heart Failure (CHF) Additional Family Medical History / Comment(s): Father is 65 yrs old. Mother Family Medical History: No Reported History Additional Family Medical History / Comment(s): Mother is 63 yrs old. General Exam Limitations: no limitations General appearance: alert, in no apparent distress, obese Head exam: Present: atraumatic, normocephalic, normal inspection Eye exam: Present: normal appearance, PERRL, EOMI. Absent: scleral icterus, conjunctival injection, periorbital swelling ENT exam: Present: normal exam, mucous membranes moist Neck exam: Present: normal inspection Respiratory exam: Present: normal lung sounds bilaterally. Absent: respiratory distress, wheezes, rales, rhonchi, stridor Cardiovascular Exam: Present: regular rate, normal rhythm, normal heart sounds. Absent: systolic murmur, diastolic murmur, rubs, gallop, clicks GI/Abdominal exam: Present: soft, normal bowel sounds. Absent: distended, tenderness, guarding, rebound, rigid Extremities exam: Present: normal inspection, full ROM, normal capillary refill. Absent: tenderness, pedal edema, joint swelling, calf tenderness Neurological exam: Present: alert, oriented X3 Psychiatric exam: Present: normal affect, normal mood Skin exam: Present: warm, dry, intact, normal color. Absent: rash Course Vital Signs 10/03/21 10/03/21 10/03/21 06:47 08:32 10:00 Temperature 98.0 F Pulse Rate 110 H 101 H 100 Respiratory 22 15 16 Rate Blood Pressure 137/92 130/84 126/97 O2 Sat by Pulse 95 97 98 Oximetry Medical Decision Making - Medical Decision Making 45-year-old male complaining of generalized muscle aches and fatigue. Labs, Cepheid 4 Plex, 15 mg Toradol, 1 L normal saline ordered. Labs: CBC unremarkable, CMP shows elevated liver enzymes elevated LDH at 1178, elevated C-reactive protein at 3.1, Cepheid 4 Plex negative. Given labs and negative for Plex swab heterophile and hepatitis panel ordered. Ultrasound of the gallbladder and chest x-ray ordered. Heterophile negative. Chest x-ray shows no acute cardiopulmonary process. Ultrasound shows fatty liver P Findings were scheduled patient he verbalizes his understanding and is agreeable to discharge home with follow-up to primary care. Case discussed with Dr. Dela Cruz, patient can discharge home. - Lab Data Result diagrams: 10/03/21 07:36 10/03/21 07:36 Lab Results 10/03/21 10/03/21 10/03/21 Range/Units 07:36 07:36 07:36 WBC 9.5 (3.8-10.6) k/uL RBC 5.79 (4.30-5.90) m/uL Hgb 17.5 (13.0-17.5) gm/dL Hct 49.3 (39.0-53.0) % MCV 85.1 (80.0-100.0) fL MCH 30.2 (25.0-35.0) pg MCHC 35.5 (31.0-37.0) g/dL RDW 13.0 (11.5-15.5) % Plt Count 158 (150-450) k/uL MPV 8.7 Neutrophils % 82 % Lymphocytes % 10 % Monocytes % 6 % Eosinophils % 1 % Basophils % 0 % Neutrophils # 7.7 (1.3-7.7) k/uL Lymphocytes # 1.0 (1.0-4.8) k/uL Monocytes # 0.6 (0-1.0) k/uL Eosinophils # 0.1 (0-0.7) k/uL Basophils # 0.0 (0-0.2) k/uL Sodium 130 L (137-145) mmol/L Potassium 4.4 (3.5-5.1) mmol/L Chloride 99 (98-107) mmol/L Carbon Dioxide 21 L (22-30) mmol/L Anion Gap 10 mmol/L BUN 15 (9-20) mg/dL Creatinine 0.52 L (0.66-1.25) mg/dL Est GFR (CKD-EPI)AfAm >90 (>60 ml/min/1.73 sqM) Est GFR (CKD-EPI)NonAf >90 (>60 ml/min/1.73 sqM) Glucose 312 H (74-99) mg/dL Calcium 8.3 L (8.4-10.2) mg/dL Total Bilirubin 0.7 (0.2-1.3) mg/dL AST 237 H (17-59) U/L ALT 108 H (4-49) U/L Alkaline Phosphatase 78 (38-126) U/L Lactate Dehydrogenase 1178 H (313-618) U/L C-Reactive Protein 3.1 H (<1.0) mg/dL Total Protein 6.2 L (6.3-8.2) g/dL Albumin 3.4 L (3.5-5.0) g/dL Heterophile Antibody (Negative) Influenza Type A (PCR) Not Detected (Not Detectd) Influenza Type B (PCR) Not Detected (Not Detectd) RSV (PCR) Not Detected (Not Detectd) SARS-CoV-2 (PCR) Not Detected (Not Detectd) 10/03/21 Range/Units 07:36 WBC (3.8-10.6) k/uL RBC (4.30-5.90) m/uL Hgb (13.0-17.5) gm/dL Hct (39.0-53.0) % MCV (80.0-100.0) fL MCH (25.0-35.0) pg MCHC (31.0-37.0) g/dL RDW (11.5-15.5) % Plt Count (150-450) k/uL MPV Neutrophils % % Lymphocytes % % Monocytes % % Eosinophils % % Basophils % % Neutrophils # (1.3-7.7) k/uL Lymphocytes # (1.0-4.8) k/uL Monocytes # (0-1.0) k/uL Eosinophils # (0-0.7) k/uL Basophils # (0-0.2) k/uL Sodium (137-145) mmol/L Potassium (3.5-5.1) mmol/L Chloride (98-107) mmol/L Carbon Dioxide (22-30) mmol/L Anion Gap mmol/L BUN (9-20) mg/dL Creatinine (0.66-1.25) mg/dL Est GFR (CKD-EPI)AfAm (>60 ml/min/1.73 sqM) Est GFR (CKD-EPI)NonAf (>60 ml/min/1.73 sqM) Glucose (74-99) mg/dL Calcium (8.4-10.2) mg/dL Total Bilirubin (0.2-1.3) mg/dL AST (17-59) U/L ALT (4-49) U/L Alkaline Phosphatase (38-126) U/L Lactate Dehydrogenase (313-618) U/L C-Reactive Protein (<1.0) mg/dL Total Protein (6.3-8.2) g/dL Albumin (3.5-5.0) g/dL Heterophile Antibody Negative (Negative) Influenza Type A (PCR) (Not Detectd) Influenza Type B (PCR) (Not Detectd) RSV (PCR) (Not Detectd) SARS-CoV-2 (PCR) (Not Detectd) - Radiology Data Radiology results: report reviewed, image reviewed Ultrasound of the gallbladder: Suboptimal study heterogeneous hyperechoic appearance of liver consistent with diffuse fatty infiltration and/or underlying hepatocellular disease. Disposition Clinical Impression: Transaminitis, Elevated LDH, Malaise and fatigue Disposition: HOME SELF-CARE Condition: Stable Instructions (If sedation given, give patient instructions): Viral Syndrome (ED) Additional Instructions: Please return to the Emergency Department if symptoms worsen or any other concerns. Follow-up with primary care 1-2 days. Is patient prescribed a controlled substance at d/c from ED?: No Referrals: Ema Mccall MD [Primary Care Provider] - 1-2 days Time of Disposition: 11:15
[2021-10-03 11:31] VITALS: BP 130/76; PULSE 106; RESP 18; TEMP 97.8
[2021-10-03 16:03] LABS: Hepatitis A Antibody IgM Nonreactive (Nonreactive); Hepatitis B Core IgM Nonreactive (Nonreactive); Hepatitis B Surface Antigen Nonreactive (Nonreactive); Hepatitis C IgG Antibody Nonreactive (Nonreactive)
== END 2021-10-03 11:32 | disposition home or self-care (01) ==
LOC: EC 06:42
DX: R53.81 Other malaise (principal); R53.83 Other fatigue; R74.02 Elevation of levels of lactic acid dehydrogenase [LDH]; R74.01 Elevation of levels of liver transaminase levels; Z20.822 Contact with and (suspected) exposure to COVID-19; E66.9 Obesity, unspecified; Z68.31 Body mass index [BMI] 31.0-31.9, adult
CPT/HCPCS: 36415; 80053; 80074; 83615; 85025; 86140; 86308; 87636; 71046; 76705; 99284; 96374; 96361; J1885

== ENCOUNTER 2021-10-06 13:06 | Inpatient (IN) | payer OTHER ==
[2021-10-06] MEDS ORDERED: SODIUM CHLORIDE 0.9% 1,000 ML IV STA (13:53)
[2021-10-06 14:47] LABS: Basophils % (A) 0 %; Eosinophils # (A) 0.1 k/uL (0-0.7); Eosinophils % (A) 1 %; HCT 49.6 % (39.0-53.0); HGB 17.1 gm/dL (13.0-17.5); Lymphocytes # (A) 0.7 k/uL (1.0-4.8); Lymphocytes % (A) 7 %; MCH 29.4 pg (25.0-35.0); MCHC 34.4 g/dL (31.0-37.0); MCV 85.5 fL (80.0-100.0); Mean Platelet Volume 9.4; Monocytes # (A) 0.7 k/uL (0-1.0); Monocytes % (A) 6 %; Neutrophils # (A) 9.1 k/uL (1.3-7.7); Neutrophils % (A) 86 %; Platelet Count 146 k/uL (150-450); RBC 5.81 m/uL (4.30-5.90); RDW 13.2 % (11.5-15.5); WBC 10.6 k/uL (3.8-10.6)
[2021-10-06 15:00] LABS: INR 0.9 (<1.2); Prothrombin Time 9.7 sec (9.0-12.0)
[2021-10-06 15:01] LABS: ALT 144 U/L (4-49); AST 406 U/L (17-59); African American GFR (CKD) >90 (>60 ml/min/1.73 sqM); Alkaline Phosphatase 61 U/L (38-126); Anion Gap 11 mmol/L; Blood Urea Nitrogen 15 mg/dL (9-20); C Reactive Protein 4.4 mg/dL (<1.0); Calcium 7.9 mg/dL (8.4-10.2); Carbon Dioxide 19 mmol/L (22-30); Chloride 98 mmol/L (98-107); Glucose 258 mg/dL (74-99); Magnesium 1.8 mg/dL (1.6-2.3); Non-African American GFR(CKD) >90 (>60 ml/min/1.73 sqM); Potassium 4.6 mmol/L (3.5-5.1); Sodium 128 mmol/L (137-145); Total Bilirubin 0.9 mg/dL (0.2-1.3); Total Protein 5.8 g/dL (6.3-8.2)
[2021-10-06 15:03] LABS: LDH 1887 U/L (313-618)
--- NOTE | 2021-10-06 15:16 | XR ---
EXAMINATION TYPE: XR chest 2V DATE OF EXAM: 10/06/2021 COMPARISON: 10/03/2021 HISTORY: Weakness TECHNIQUE: 2 views FINDINGS: Heart and mediastinum are normal. Lungs are clear. Diaphragm is normal. Bony thorax is inta ct. IMPRESSION: Normal chest. No change.
[2021-10-06] MEDS ORDERED: SODIUM CHLORIDE 0.9% 1,000 ML IV ONE (15:34)
[2021-10-06] MEDS ORDERED: SODIUM BICARB 8.4% 50 ML SYR (1 MEQ/ML) IV STA ×2 (15:40→15:41)
--- NOTE | 2021-10-06 16:13 | CT ---
EXAMINATION TYPE: CT abdomen pelvis w con DATE OF EXAM: 10/06/2021 COMPARISON: None HISTORY: Shortness of breath, chest pain and body aches x2 weeks. CT DLP: 1670.2 mGycm Automated exposure control for dose reduction was used. CONTRAST: Performed with IV Contrast, patient injected with 100ml mL of Isovue 370. Images obtained from the diaphragm to the floor the pelvis with IV contrast. There is some mild atelectasis at the lung bases. Heart size is normal. There is no pericardial effus ion. There is some mild fatty infiltration of the liver. Spleen is intact. Stomach is intact. There is no evidence of pancreatic mass. There is no adrenal mass. Kidneys show satisfactory contrast opacification. There is no hydronephrosi s. Ureters are not dilated. There is some retroperitoneal fluid posterior to both kidneys. Fluid exte nds inferiorly into the pelvis along the iliopsoas muscles. Fluid has low attenuation and is not appe aring as hemorrhagic. The bladder distends smoothly. There is no inguinal hernia. There is no free fl uid in the pelvis. There is some presacral edema. There is no mesenteric edema. There is no ascites or free air. There is no evidence of a bowel obstru ction. The lumbar vertebra have normal alignment. Disc spaces are fairly normal. There is no compression fra cture. Bony pelvis is intact. Hip joints are intact. IMPRESSION: There is bilateral retroperitoneal edema extending from the lower pole of both kidneys into the pelvi s and presacral region. Clinical significance is not clear. There is some mild subsegmental atelectasis at the lung bases.
--- NOTE | 2021-10-06 16:15 | CT ---
EXAMINATION TYPE: CT chest angio for PE DATE OF EXAM: 10/06/2021 COMPARISON: None HISTORY: Shortness of breath, chest pain and body aches x2 weeks. CT DLP: 517.1 mGycm Automated exposure control for dose reduction was used. CONTRAST: Performed with IV Contrast, patient injected with 100ml mL of Isovue 370. There are 3-D post processed images. There is mild subsegmental atelectasis at the posterior lung bases bilaterally. Heart size is fairly normal. There is no pericardial effusion. There is no pleural effusion. There are no hilar masses. There is no mediastinal adenopathy. Thoracic aorta is intact. There is no sign of aneurysm or dissection. There is normal contrast opacification of the pulmonary arteries. There are no filling defects. Thoracic spine is intact. Sternum is intact. There is no evidence of focal bone destruction. IMPRESSION: No evidence of pulmonary embolism. Mild bilateral basilar subsegmental atelectasis.
[2021-10-06] MEDS ORDERED: ACETAMINOPHEN TAB 325 MG TAB PO PRN (16:28)
[2021-10-06] MEDS ORDERED: ONDANSETRON 4 MG/2 ML VIAL IVP PRN (16:28)
[2021-10-06] MEDS ORDERED: NALOXONE 0.4 MG/ML 1 ML VIAL IV PRN (16:28)
--- NOTE | 2021-10-06 16:28 | ED ---
General Adult HPI - General Chief complaint: Shortness of Breath Stated complaint: Chest/Jaw Pain,SOB,Headache Revisit Time Seen by Provider: 10/06/21 13:35 Source: patient, RN notes reviewed Mode of arrival: wheelchair Limitations: no limitations - History of Present Illness Initial comments: This a 45-year-old male presents emergency Department chief complaint of severe body aches, shortness breath, cough, generalized weakness sore throat. Patient states that symptoms started approximate 10 days ago with denies bodyaches and was concern for covid 19. Patient states his been sore 3 times which have been negative in negative RSV negative influenza. He denies any new medications change in dietary no recent trauma. Patient states he's had no sick contacts he states that he felt short of breath with exertion. - Related Data Previous Rx's Medication Instructions Recorded Nystatin [Nystatin Oral Susp] 6 ml PO QID 10 Days #250 ml 10/03/21 Allergies Allergy/AdvReac Type Severity Reaction Status Date / Time No Known Allergies Allergy Verified 10/06/21 15:19 Review of Systems ROS Statement: Those systems with pertinent positive or pertinent negative responses have been documented in the HPI. ROS Other: All systems not noted in ROS Statement are negative. Past Medical History Past Medical History: No Reported History History of Any Multi-Drug Resistant Organisms: None Reported Past Surgical History: Adenoidectomy, Hernia Repair Additional Past Surgical History / Comment(s): sinus surgery Past Anesthesia/Blood Transfusion Reactions: No Reported Reaction Past Psychological History: No Psychological Hx Reported Smoking Status: Never smoker Past Alcohol Use History: Rare Past Drug Use History: None Reported - Past Family History Father Family Medical History: Congestive Heart Failure (CHF) Additional Family Medical History / Comment(s): Father is 65 yrs old. Mother Family Medical History: No Reported History Additional Family Medical History / Comment(s): Mother is 63 yrs old. General Exam Limitations: no limitations General appearance: alert, in no apparent distress Head exam: Present: atraumatic, normocephalic, normal inspection Eye exam: Present: normal appearance, PERRL, EOMI. Absent: scleral icterus, conjunctival injection, periorbital swelling ENT exam: Present: normal exam, normal oropharynx, mucous membranes moist Neck exam: Present: normal inspection, full ROM. Absent: tenderness, meningismus, lymphadenopathy Respiratory exam: Present: normal lung sounds bilaterally. Absent: respiratory distress, wheezes, rales, rhonchi, stridor Cardiovascular Exam: Present: normal rhythm, tachycardia, normal heart sounds. Absent: systolic murmur, diastolic murmur, rubs, gallop, clicks GI/Abdominal exam: Present: soft, normal bowel sounds. Absent: distended, tenderness, guarding, rebound, rigid Neurological exam: Present: alert, oriented X3, CN II-XII intact, reflexes normal. Absent: motor sensory deficit Skin exam: Present: warm, dry, intact, normal color. Absent: rash Course Vital Signs 10/06/21 10/06/21 10/06/21 13:24 15:17 15:52 Temperature 97.9 F Pulse Rate 121 H 107 H 105 H Respiratory 20 18 18 Rate Blood Pressure 131/81 146/89 O2 Sat by Pulse 98 100 Oximetry EKG Findings - EKG Comments: EKG Findings:: EKG performed at 1419 sinus tachycardia with a rate of 112 VT 128 QRS 98 QT/QTC 346/472 Medical Decision Making - Medical Decision Making 45-year-old male presented after 10 days of does not feel well. Patient's CK is - Lab Data Result diagrams: 10/06/21 14:38 10/06/21 14:38 Lab Results 10/06/21 10/06/21 10/06/21 Range/Units 14:38 14:38 14:38 WBC 10.6 (3.8-10.6) k/uL RBC 5.81 (4.30-5.90) m/uL Hgb 17.1 (13.0-17.5) gm/dL Hct 49.6 (39.0-53.0) % MCV 85.5 (80.0-100.0) fL MCH 29.4 (25.0-35.0) pg MCHC 34.4 (31.0-37.0) g/dL RDW 13.2 (11.5-15.5) % Plt Count 146 L (150-450) k/uL MPV 9.4 Neutrophils % 86 % Lymphocytes % 7 % Monocytes % 6 % Eosinophils % 1 % Basophils % 0 % Neutrophils # 9.1 H (1.3-7.7) k/uL Lymphocytes # 0.7 L (1.0-4.8) k/uL Monocytes # 0.7 (0-1.0) k/uL Eosinophils # 0.1 (0-0.7) k/uL Basophils # 0.0 (0-0.2) k/uL PT 9.7 (9.0-12.0) sec INR 0.9 (<1.2) APTT 23.0 (22.0-30.0) sec D-Dimer 0.83 H (<0.60) mg/L FEU Sodium 128 L (137-145) mmol/L Potassium 4.6 (3.5-5.1) mmol/L Chloride 98 (98-107) mmol/L Carbon Dioxide 19 L (22-30) mmol/L Anion Gap 11 mmol/L BUN 15 (9-20) mg/dL Creatinine 0.45 L (0.66-1.25) mg/dL Est GFR (CKD-EPI)AfAm >90 (>60 ml/min/1.73 sqM) Est GFR (CKD-EPI)NonAf >90 (>60 ml/min/1.73 sqM) Glucose 258 H (74-99) mg/dL Plasma Lactic Acid [place] (0.7-2.0) mmol/L Calcium 7.9 L (8.4-10.2) mg/dL Magnesium 1.8 (1.6-2.3) mg/dL Total Bilirubin 0.9 (0.2-1.3) mg/dL AST 406 H (17-59) U/L ALT 144 H (4-49) U/L Alkaline Phosphatase 61 (38-126) U/L Lactate Dehydrogenase 1887 H (313-618) U/L Creatine Kinase 11260 H* (55-170) U/L Troponin I (0.000-0.034) ng/mL C-Reactive Protein 4.4 H (<1.0) mg/dL NT-Pro-B Natriuret Pep pg/mL Total Protein 5.8 L (6.3-8.2) g/dL Albumin 3.0 L (3.5-5.0) g/dL Coronavirus (PCR) (Not Detectd) Heterophile Antibody (Negative) Influenza Type A RNA (Not Detectd) Influenza Type B (PCR) (Not Detectd) 10/06/21 10/06/21 10/06/21 Range/Units 14:38 14:38 14:38 WBC (3.8-10.6) k/uL RBC (4.30-5.90) m/uL Hgb (13.0-17.5) gm/dL Hct (39.0-53.0) % MCV (80.0-100.0) fL MCH (25.0-35.0) pg MCHC (31.0-37.0) g/dL RDW (11.5-15.5) % Plt Count (150-450) k/uL MPV Neutrophils % % Lymphocytes % % Monocytes % % Eosinophils % % Basophils % % Neutrophils # (1.3-7.7) k/uL Lymphocytes # (1.0-4.8) k/uL Monocytes # (0-1.0) k/uL Eosinophils # (0-0.7) k/uL Basophils # (0-0.2) k/uL PT (9.0-12.0) sec INR (<1.2) APTT (22.0-30.0) sec D-Dimer (<0.60) mg/L FEU Sodium (137-145) mmol/L Potassium (3.5-5.1) mmol/L Chloride (98-107) mmol/L Carbon Dioxide (22-30) mmol/L Anion Gap mmol/L BUN (9-20) mg/dL Creatinine (0.66-1.25) mg/dL Est GFR (CKD-EPI)AfAm (>60 ml/min/1.73 sqM) Est GFR (CKD-EPI)NonAf (>60 ml/min/1.73 sqM) Glucose (74-99) mg/dL Plasma Lactic Acid [place] 1.5 (0.7-2.0) mmol/L Calcium (8.4-10.2) mg/dL Magnesium (1.6-2.3) mg/dL Total Bilirubin (0.2-1.3) mg/dL AST (17-59) U/L ALT (4-49) U/L Alkaline Phosphatase (38-126) U/L Lactate Dehydrogenase (313-618) U/L Creatine Kinase (55-170) U/L Troponin I <0.012 (0.000-0.034) ng/mL C-Reactive Protein (<1.0) mg/dL NT-Pro-B Natriuret Pep <11 pg/mL Total Protein (6.3-8.2) g/dL Albumin (3.5-5.0) g/dL Coronavirus (PCR) (Not Detectd) Heterophile Antibody (Negative) Influenza Type A RNA (Not Detectd) Influenza Type B (PCR) (Not Detectd) 10/06/21 10/06/21 10/06/21 Range/Units 14:38 14:38 14:38 WBC (3.8-10.6) k/uL RBC (4.30-5.90) m/uL Hgb (13.0-17.5) gm/dL Hct (39.0-53.0) % MCV (80.0-100.0) fL MCH (25.0-35.0) pg MCHC (31.0-37.0) g/dL RDW (11.5-15.5) % Plt Count (150-450) k/uL MPV Neutrophils % % Lymphocytes % % Monocytes % % Eosinophils % % Basophils % % Neutrophils # (1.3-7.7) k/uL Lymphocytes # (1.0-4.8) k/uL Monocytes # (0-1.0) k/uL Eosinophils # (0-0.7) k/uL Basophils # (0-0.2) k/uL PT (9.0-12.0) sec INR (<1.2) APTT (22.0-30.0) sec D-Dimer (<0.60) mg/L FEU Sodium (137-145) mmol/L Potassium (3.5-5.1) mmol/L Chloride (98-107) mmol/L Carbon Dioxide (22-30) mmol/L Anion Gap mmol/L BUN (9-20) mg/dL Creatinine (0.66-1.25) mg/dL Est GFR (CKD-EPI)AfAm (>60 ml/min/1.73 sqM) Est GFR (CKD-EPI)NonAf (>60 ml/min/1.73 sqM) Glucose (74-99) mg/dL Plasma Lactic Acid [place] (0.7-2.0) mmol/L Calcium (8.4-10.2) mg/dL Magnesium (1.6-2.3) mg/dL Total Bilirubin (0.2-1.3) mg/dL AST (17-59) U/L ALT (4-49) U/L Alkaline Phosphatase (38-126) U/L Lactate Dehydrogenase (313-618) U/L Creatine Kinase (55-170) U/L Troponin I (0.000-0.034) ng/mL C-Reactive Protein (<1.0) mg/dL NT-Pro-B Natriuret Pep pg/mL Total Protein (6.3-8.2) g/dL Albumin (3.5-5.0) g/dL Coronavirus (PCR) Not Detected (Not Detectd) Heterophile Antibody Negative (Negative) Influenza Type A RNA Not Detected (Not Detectd) Influenza Type B (PCR) Not Detected (Not Detectd) Disposition Clinical Impression: Viral infection, Rhabdomyolysis, Dyspnea, Hyperglycemia Disposition: ADMITTED IP TO THIS [facility] Condition: Fair Referrals: Ema Mccall MD [Primary Care Provider] - 1-2 days
[2021-10-06] MEDS: SODIUM CHLORIDE 0.9% 1,000 ML IV SCH (17:10)
[2021-10-06 17:32] LABS: Glucose,Whole Blood 185 mg/dL (75-99)
[2021-10-06] MEDS: INSULIN ASPART (NovoLOG) 100 UNIT/ML VIAL SQ SCH ×2 (17:34→21:34)
[2021-10-06] MEDS: HYDROcodone/APAP 5-325MG 1 EACH TAB PO PRN (17:35)
[2021-10-06 21:37] LABS: Glucose,Whole Blood 204 mg/dL (75-99)
[2021-10-06 21:55] LABS: Appearance,Urine Clear (Clear); Bilirubin,Urine Negative (Negative); Blood,Urine Small (Negative); Color,Urine Yellow; Glucose,Urine (UA) 4+ (Negative); Leukocyte Esterase,Urine Negative (Negative); Mucus,Urine Rare /hpf; Nitrite,Urine Negative (Negative); Protein,Urine Trace (Negative); RBC,Urine 1 /hpf (0-5); Urobilinogen,Urine <2.0 mg/dL (<2.0); WBC,Urine 1 /hpf (0-5)
[2021-10-06 22:00] LABS: Specific Gravity,Urine >1.050 (1.001-1.035)
[2021-10-06 22:04] LABS: Ketones,Urine 4+ (Negative)
[2021-10-07] MEDS: SODIUM CHLORIDE 0.9% 1,000 ML IV SCH ×4 (02:02→20:39)
[2021-10-07] MEDS: HYDROcodone/APAP 5-325MG 1 EACH TAB PO PRN ×4 (03:37→20:38)
[2021-10-07 06:12] LABS: Glucose,Whole Blood 160 mg/dL (75-99)
[2021-10-07] MEDS: INSULIN ASPART (NovoLOG) 100 UNIT/ML VIAL SQ SCH ×4 (06:24→20:39)
--- NOTE | 2021-10-07 09:09 | P.HPIM ---
History of Present Illness H&P Date: 10/07/21 James Reyes, is a year old male who presented to [facility] emergency room with a chief complaint of generalized body ache, cough and shortness of breath, symptoms started 10 days prior to this admission, patient had 3 visits to emergency room due to similar symptoms, he was tested for COVID- 19, influenza A and B, and RSV virus, all these tests were negative, patient condition continued to worsen, patient developed worsening generalized muscle weakness and pain in bilateral hips and shoulder area , during this presentation he had evidence of rhabdomyolysis was elevated creatinine kinase at 11,556 LDH was elevated at 1887, AST 406, ALT 144, d-dimer was also elevated at 0.83, chest x-ray revealed mild bilateral atelectasis, computed tomography scan of the chest did not reveal evidence of pulmonary embolism, computed tomography scan of the abdomen and pelvis revealed fluid collection in the retroperitoneal area, otherwise no significant abnormality, patient was admitted to medical floor for further evaluation and treatment, pulmonary consultation was requested, neurolog y consultation was requested for 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 Patient denies any significant past medical history, he stated that he was vaccinated for COVID-19 he received the Moderna vaccine in December and January of this year, there is no history of smoking, he drinks alcohol rarely, he stated that he had 3 alcoholic drinks on September 05 and had no alcoholic drinks since then. Past Medical History Past Medical History: No Reported History History of Any Multi-Drug Resistant Organisms: None Reported Past Surgical History: Hernia Repair Additional Past Surgical History / Comment(s): sinus surgery Past Anesthesia/Blood Transfusion Reactions: No Reported Reaction Past Psychological History: No Psychological Hx Reported Additional Psychological History / Comment(s): Pt resides with his spouse and children. He is independent. He drives. Smoking Status: Never smoker Past Alcohol Use History: Rare Past Drug Use History: None Reported - Past Family History Father Family Medical History: Congestive Heart Failure (CHF) Additional Family Medical History / Comment(s): Father is 65 yrs old. Mother Family Medical History: No Reported History Additional Family Medical History / Comment(s): Mother is 63 yrs old. Medications and Allergies Home Medications Medication Instructions Recorded Confirmed Type Nystatin [Nystatin Oral Susp] 6 ml PO QID 10 Days #250 ml 10/03/21 10/06/21 Rx Allergies Allergy/AdvReac Type Severity Reaction Status Date / Time No Known Allergies Allergy Verified 10/06/21 15:19 Physical Exam Vitals: Vital Signs Temp Pulse Pulse Resp BP BP Pulse Ox 10/07/21 03:30 104 H 19 123/75 96 10/06/21 23:25 114 H 20 118/73 95 10/06/21 21:30 98 F 114 H 19 136/86 95 10/06/21 20:47 97.8 F 102 H 18 128/78 10/06/21 17:48 98.3 F 106 H 22 123/89 98 10/06/21 17:00 101 H 18 129/85 99 10/06/21 15:52 105 H 18 146/89 100 10/06/21 15:17 107 H 18 10/06/21 13:24 97.9 F 121 H 20 131/81 98 Intake and Output 10/06/21 10/07/21 10/07/21 22:59 06:59 14:59 Output Total 650 Balance -650 Output: Urine 650 Other: Voiding Method Toilet Toilet Urinal Urinal # Voids 1 1 Weight 103.419 kg 108.5 kg In general patient is alert and oriented x 3 in no distress HEENT head normocephalic and atraumatic Neck is supple no JVD no goiter no lymphadenopathy no carotid bruit Chest examination is clear to auscultation no crackles no wheezing Cardiac exam reveals regular heart sounds S1 and S2 no gallops no murmurs Abdomen is soft nontender no organomegaly with normal bowel sounds Extremity exam reveals no edema no cyanosis or clubbing Neurological examination reveals generalized muscle weakness, without any focal deficit Results CBC & Chem 7: 10/06/21 14:38 10/06/21 14:38 Labs: Abnormal Lab Results - Last 24 Hours (Table) 10/06/21 10/06/21 10/06/21 Range/Units 14:38 14:38 14:38 Plt Count 146 L (150-450) k/uL Neutrophils # 9.1 H (1.3-7.7) k/uL Lymphocytes # 0.7 L (1.0-4.8) k/uL D-Dimer 0.83 H (<0.60) mg/L FEU Sodium 128 L (137-145) mmol/L Carbon Dioxide 19 L (22-30) mmol/L Creatinine 0.45 L (0.66-1.25) mg/dL Glucose 258 H (74-99) mg/dL POC Glucose (mg/dL) (75-99) mg/dL Calcium 7.9 L (8.4-10.2) mg/dL AST 406 H (17-59) U/L ALT 144 H (4-49) U/L Lactate Dehydrogenase 1887 H (313-618) U/L Creatine Kinase 44291 H* (55-170) U/L C-Reactive Protein 4.4 H (<1.0) mg/dL Total Protein 5.8 L (6.3-8.2) g/dL Albumin 3.0 L (3.5-5.0) g/dL Ur Specific [place] (1.001-1.035) Urine Protein (Negative) Urine Glucose (UA) (Negative) Urine Ketones (Negative) Urine Blood (Negative) Urine Mucus (None) /hpf 10/06/21 10/06/21 10/06/21 Range/Units 17:30 21:31 Unknown Plt Count (150-450) k/uL Neutrophils # (1.3-7.7) k/uL Lymphocytes # (1.0-4.8) k/uL D-Dimer (<0.60) mg/L FEU Sodium (137-145) mmol/L Carbon Dioxide (22-30) mmol/L Creatinine (0.66-1.25) mg/dL Glucose (74-99) mg/dL POC Glucose (mg/dL) 185 H 204 H (75-99) mg/dL Calcium (8.4-10.2) mg/dL AST (17-59) U/L ALT (4-49) U/L Lactate Dehydrogenase (313-618) U/L Creatine Kinase (55-170) U/L C-Reactive Protein (<1.0) mg/dL Total Protein (6.3-8.2) g/dL Albumin (3.5-5.0) g/dL Ur Specific [place] >1.050 H (1.001-1.035) Urine Protein Trace H (Negative) Urine Glucose (UA) 4+ H (Negative) Urine Ketones 4+ H (Negative) Urine Blood Small H (Negative) Urine Mucus Rare H (None) /hpf 10/07/21 Range/Units 06:05 Plt Count (150-450) k/uL Neutrophils # (1.3-7.7) k/uL Lymphocytes # (1.0-4.8) k/uL D-Dimer (<0.60) mg/L FEU Sodium (137-145) mmol/L Carbon Dioxide (22-30) mmol/L Creatinine (0.66-1.25) mg/dL Glucose (74-99) mg/dL POC Glucose (mg/dL) 160 H (75-99) mg/dL Calcium (8.4-10.2) mg/dL AST (17-59) U/L ALT (4-49) U/L Lactate Dehydrogenase (313-618) U/L Creatine Kinase (55-170) U/L C-Reactive Protein (<1.0) mg/dL Total Protein (6.3-8.2) g/dL Albumin (3.5-5.0) g/dL Ur Specific [place] (1.001-1.035) Urine Protein (Negative) Urine Glucose (UA) (Negative) Urine Ketones (Negative) Urine Blood (Negative) Urine Mucus (None) /hpf Thrombosis Risk Factor Assmnt - Choose All That Apply Any of the Below Risk Factors Present?: Yes Each Factor Represents 1 point: Age 41-60 years, Medical pt on bed rest, Obesity (BMI >25) Other Risk Factors: No Other congenital or acquired thrombophilia - If yes, enter type in comment: No Thrombosis Risk Factor Assessment Total Risk Factor Score: 3 Thrombosis Risk Factor Assessment Level: Moderate Risk Assessment and Plan Plan: Upper respiratory infection likely viral, with sore throat, cough and shortness of breath Rhabdomyolysis, with elevated creatinine kinase at 11,556 Elevated AST and ALT, will check hepatitis B and C profile Hyponatremia sodium on presentation 128 Generalized muscle weakness and muscle pain, 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
[2021-10-07 09:19] LABS: Basophils % (A) 0 %; Eosinophils % (A) 0 %; HCT 42.3 % (39.0-53.0); Lymphocytes # (A) 0.6 k/uL (1.0-4.8); Lymphocytes % (A) 8 %; MCH 29.4 pg (25.0-35.0); MCHC 33.4 g/dL (31.0-37.0); Mean Platelet Volume 9.1; Monocytes # (A) 0.5 k/uL (0-1.0); Monocytes % (A) 7 %; Neutrophils # (A) 5.8 k/uL (1.3-7.7); Neutrophils % (A) 84 %; Platelet Count 131 k/uL (150-450); RBC 4.81 m/uL (4.30-5.90); RDW 13.4 % (11.5-15.5); WBC 6.9 k/uL (3.8-10.6)
[2021-10-07 09:20] LABS: ALT 112 U/L (4-49); AST 336 U/L (17-59); African American GFR (CKD) >90 (>60 ml/min/1.73 sqM); Albumin 2.2 g/dL (3.5-5.0); Alkaline Phosphatase 56 U/L (38-126); Anion Gap 2 mmol/L; Blood Urea Nitrogen 13 mg/dL (9-20); Carbon Dioxide 26 mmol/L (22-30); Chloride 101 mmol/L (98-107); Glucose 311 mg/dL (74-99); Non-African American GFR(CKD) >90 (>60 ml/min/1.73 sqM); Sodium 129 mmol/L (137-145); Total Bilirubin 0.6 mg/dL (0.2-1.3); Total Protein 4.5 g/dL (6.3-8.2)
[2021-10-07 09:26] LABS: HGB 14.1 gm/dL (13.0-17.5)
[2021-10-07] MEDS: ENOXAPARIN 40 MG/0.4 ML SYRINGE SQ SCH (09:26)
[2021-10-07 11:40] LABS: Glucose,Whole Blood 255 mg/dL (75-99)
[2021-10-07 13:15] LABS: Creatine Kinase 11556 U/L (55-170)
--- NOTE | 2021-10-07 14:01 | P.CNPUL ---
History of Present Illness Consult date: 10/07/21 Reason for consult: dyspnea History of present illness: 45-year-old male patient who presents to the hospital because of some shortness of breath. Nevertheless, his main problem is significant achiness and soreness and his muscles throughout his body mainly lower extremities along with some progressive weakness more so in his lower extremities. He had another burst department visit approximately 10 days ago and he was discharged home after being worked up. His CPK was not checked. During this current admission, the patient was found to have significant rhabdomyolysis and significant elevation of the CPK values at 11,556. Based on that, the patient has been hospitalized. His chest x-rays clear. CAT scan of the chest shows no evidence of any pulmonary embolism and shows some limited atelectatic changes in lung base bilaterally. CAT scan of the abdomen and pelvis is nonspecific. He has no altered mentation and no substance abuse. No trauma. No falls. His COVID 19 testing is been negative. Influenza A and B are negative, RSV has been negative and the patient has been fully vaccinated for COVID 19. He has not drank alc ohol since August. He used to drink prior to that around 3 alcoholic beverages on a daily basis. Otherwise he has no other medical history. He is a high low trailer driver. No coffee no sputum production. No pleurisy. No hemoptysis. Reflexes in the lower oximetry is of low. Neurology has been consulted. Review of Systems Constitutional: Denies chills, Denies fever Eyes: denies as per HPI, denies blurred vision, denies bulging eye, denies decreased vision, denies diplopia, denies discharge, denies dry eye, denies ir ritation, denies itching, denies pain, denies photophobia, denies loss of peripheral vision, denies loss of vision, denies tunnel vision/blind spots Ears: deny: decreased hearing, ear discharge, earache, tinnitus Ears, nose, mouth and throat: Reports as per HPI Breasts: absent: as per HPI, gynecomastia Cardiovascular: Reports decreased exercise tolerance, Reports dyspnea on exertion Respiratory: Reports dyspnea Gastrointestinal: Reports as per HPI Genitourinary: Reports as per HPI Musculoskeletal: Reports muscle weakness (Along with muscle soreness) Musculoskeletal: absent: ankle pain, ankle stiffness, ankle swelling, as per HPI, elbow pain, elbow stiffness, elbow swelling, foot pain, foot stiffness, foot swelling, hand pain, hand stiffness, hand swelling, hip pain, hip stiffness, hip swelling, knee pain, knee stiffness, knee swelling, shoulder pain, shoulder stiffness, shoulder swelling, wrist pain, wrist stiffness, wrist swelling Integumentary: Reports as per HPI Neurological: Reports gait dysfunction, Reports motor disturbance, Reports weakness (Throughout his body mainly in lower extremities) Psychiatric: Reports as per HPI Endocrine: Reports as per HPI Hematologic/Lymphatic: Reports as per HPI Allergic/Immunologic: Reports as per HPI Past Medical History Past Medical History: No Reported History History of Any Multi-Drug Resistant Organisms: None Reported Past Surgical History: Hernia Repair Additional Past Surgical History / Comment(s): sinus surgery Past Anesthesia/Blood Transfusion Reactions: No Reported Reaction Past Psychological History: No Psychological Hx Reported Additional Psychological History / Comment(s): Pt resides with his spouse and children. He is independent. He drives. Smoking Status: Never smoker Past Alcohol Use History: Rare Past Drug Use History: None Reported - Past Family History Father Family Medical History: Congestive Heart Failure (CHF) Additional Family Medical History / Comment(s): Father is 65 yrs old. Mother Family Medical History: No Reported History Additional Family Medical History / Comment(s): Mother is 63 yrs old. Medications and Allergies Home Medications Medication Instructions Recorded Confirmed Type Nystatin [Nystatin Oral Susp] 6 ml PO QID 10 Days #250 ml 10/03/21 10/06/21 Rx Allergies Allergy/AdvReac Type Severity Reaction Status Date / Time No Known Allergies Allergy Verified 10/06/21 15:19 Physical Exam Vitals: Vital Signs Temp Pulse Pulse Resp BP BP Pulse Ox 10/07/21 12:34 97.7 F 103 H 18 120/80 96 10/07/21 09:24 97.7 F 108 H 18 113/92 97 10/07/21 03:30 104 H 19 123/75 96 10/06/21 23:25 114 H 20 118/73 95 10/06/21 21:30 98 F 114 H 19 136/86 95 10/06/21 20:47 97.8 F 102 H 18 128/78 10/06/21 17:48 98.3 F 106 H 22 123/89 98 10/06/21 17:00 101 H 18 129/85 99 10/06/21 15:52 105 H 18 146/89 100 10/06/21 15:17 107 H 18 Intake and Output 10/06/21 10/07/21 10/07/21 22:59 06:59 14:59 Intake Total 420 Output Total 650 Balance -650 420 Intake: Oral 420 Output: Urine 650 Other: Voiding Method Toilet Toilet Toilet Urinal Urinal Urinal # Voids 1 1 Weight 103.419 kg 108.5 kg In general patient is alert and oriented x 3 in no distress Head exam was generally normal. There was no scleral icterus or corneal arcus. Mucous membranes were moist. HEENT head normocephalic and atraumatic Neck is supple no JVD no goiter no lymphadenopathy no carotid bruit Chest examination is clear to auscultation no crackles no wheezing Cardiac exam reveals regular heart sounds S1 and S2 no gallops no murmurs Abdomen is soft nontender no organomegaly with normal bowel sounds Extremity exam reveals no edema no cyanosis or clubbing, there is a rectal soreness of the muscles in the lower extremity is bilaterally. Neurological examination reveals generalized muscle weakness, without any focal deficit, and the patient diminished reflexes in all 4 extremity especially lower extremities. No Babinski. No clonus. The motor function is weak and the patient has motor function around 4 out of 5 which is symmetrical weak and lower extremities. Results - Laboratory Findings CBC and BMP: 10/07/21 08:39 10/07/21 08:39 PT/INR, D-dimer PT 9.7 sec (9.0-12.0) 10/06/21 14:38 INR 0.9 (<1.2) 10/06/21 14:38 D-Dimer 0.83 mg/L FEU (<0.60) H 10/06/21 14:38 Abnormal lab findings: Abnormal Labs 10/06/21 10/06/21 10/06/21 14:38 14:38 14:38 Plt Count 146 L Neutrophils # 9.1 H Lymphocytes # 0.7 L D-Dimer 0.83 H Sodium 128 L Carbon Dioxide 19 L Creatinine 0.45 L Glucose 258 H POC Glucose (mg/dL) Calcium 7.9 L Ferritin 3935.0 H AST 406 H ALT 144 H Lactate Dehydrogenase 1887 H Creatine Kinase 25606 H* C-Reactive Protein 4.4 H Total Protein 5.8 L Albumin 3.0 L Ur Specific [place] Urine Protein Urine Glucose (UA) Urine Ketones Urine Blood Urine Mucus 10/06/21 10/06/21 10/06/21 17:30 21:31 Unknown Plt Count Neutrophils # Lymphocytes # D-Dimer Sodium Carbon Dioxide Creatinine Glucose POC Glucose (mg/dL) 185 H 204 H Calcium Ferritin AST ALT Lactate Dehydrogenase Creatine Kinase C-Reactive Protein Total Protein Albumin Ur Specific [place] >1.050 H Urine Protein Trace H Urine Glucose (UA) 4+ H Urine Ketones 4+ H Urine Blood Small H Urine Mucus Rare H 10/07/21 10/07/21 10/07/21 06:05 08:39 08:39 Plt Count 131 L Neutrophils # Lymphocytes # 0.6 L D-Dimer Sodium Carbon Dioxide Creatinine Glucose POC Glucose (mg/dL) 160 H Calcium Ferritin AST ALT Lactate Dehydrogenase Creatine Kinase 83739 H* C-Reactive Protein Total Protein Albumin Ur Specific [place] Urine Protein Urine Glucose (UA) Urine Ketones Urine Blood Urine Mucus 10/07/21 10/07/21 08:39 11:39 Plt Count Neutrophils # Lymphocytes # D-Dimer Sodium 129 L Carbon Dioxide Creatinine 0.58 L Glucose 311 H POC Glucose (mg/dL) 255 H Calcium 7.0 L Ferritin AST 336 H ALT 112 H Lactate Dehydrogenase Creatine Kinase C-Reactive Protein Total Protein 4.5 L Albumin 2.2 L Ur Specific [place] Urine Protein Urine Glucose (UA) Urine Ketones Urine Blood Urine Mucus - Diagnostic Findings Chest x-ray: image reviewed CT scan - chest: image reviewed Assessment and Plan Plan: 1 acute rhabdomyolysis 2 acute muscular weakness with diminished effects in lower oximetry is bilaterally, questionable ascending paralysis, consider underlying post viral demyelinating polyneuropathy, neurology will be consulted. 3 shortness of breath without any obvious lung disease. This could be related to his underlying neuromuscular weakness. Computed tomography scan of the chest was negative and the patient has some limited atelectatic changes in lung bases bilaterally. 4 acute hypernatremia 5 acute anion gap metabolic acidosis 6 mild thrombocytopenia 7 hyperglycemia, consider underlying diabetes mellitus Plan Neurology consultation regarding above Continue IV fluids Monitor CPK and was found signs of acute kidney injury Provide the patient incentive spirometer We'll check a vital capacity and a NIF should the patient developed any signs of any further respiratory compromise. Check a urine drug screen
--- NOTE | 2021-10-07 15:56 | P.CNNES ---
History of Present Illness Consult date: 10/07/21 Requesting physician: Zan Diego Reason for Consult: generalized weakness, possible GBS History of Present Illness: This is a 45-year-old gentleman medical history of dyslipidemia and borderline diabetes who presented to the emergency department on 10/06/2021 for shortness of breath. The neurologist consulted for generalized weakness and concern for GBS. The patient is accompanied with his mother who is at bedside. According to the patient about 2 1/2 weeks ago he noticed soreness on his bilateral quads all the sudden as well as pain and weakness. He said that the the soreness the pain and the weakness has progressively getting worse start the quads and then he noticed that in the bilateral shoulder chest region. As a result patient's having difficulty walking. He denies dropping anything from his hands. He denies of any numbness, any tingling, any difficulty getting his words out. He denies of any visual disturbance. Denies of any infection prior to that or any sick contacts. Denies of any diarrhea or any upper GI symptoms prior to that. Noticed a rash over the right side of the chest around the he thinks 2 weeks ago. He is having shortness of breath with ambulation. Patient stated that he came back to the hospital as a result of his symptoms he thinks it was a about a week and a half to 2 weeks ago and he was given steroids and was discharged home. He said that he took steroids for 3 days and then he followed up with his primary care and the he discontinued the steroids since his sugar was in the 400s. He said that he is a lost 10 pounds over the last 1-1/2 weeks since he has no appetite. Otherwise patient stated that he is not on any home medication. Patient stated that he has pain throughout his body but mostly it's the shoulder and hips and thigh region. He resides with his and his two kids. He denies of any similar presentation this in the past. He denies of any tobacco use, alcohol use or any illicit drug use. His father has history of diabetes. His grandmother has history of colon cancer in her 60s. Some of the workup in the hospital consisted of: Initial vital signs his blood pressure of 131/81, heart rate of 141, respiratory of 20, temperature of 97.9 Fahrenheit oral, pulse ox is 98% room air. Blood cell is 10.6 thousand, platelet is 146 and the repeated the platelet is 1 31,000. Hemoglobin is 17.1 hematocrit is 49.6. Initial sodium is 128, creatinine is 0.45, initial serum glucose is 257, calcium 7.9, magnesium is 1.8, AST of 406 and ALT of 144. Most recent sodium is 129. Patient's baseline sodium is high 130s to low 140s CK level is 11,556 CRP is 4.4. Urinalysis is negative for urinary tract infection but has L4 positive for keton es and 4 positive for glucose. Bey virus is nondetected. Influenza A and RNA/POCR (respectively) are as nondetected Hemoglobin A1c is 6.3 on 09/17/2020. Patient's previous lipid panel on the 2019 as a triglyceride of 152, cholesterol is 226, LDL is [address] of the abdomen and pelvis root is reported as bilateral retroperitoneal edema extending from the lower pole of both kidneys into the pelvis presacral region. Clinical significance is not clear. Pulmonary team is consulted for shortness of breath Review of Systems Review of system: The 12 point system was reviewed and apparent positive and negative per HPI. Past Medical History Past Medical History: No Reported History History of Any Multi-Drug Resistant Organisms: None Reported Past Surgical History: Hernia Repair Additional Past Surgical History / Comment(s): sinus surgery Past Anesthesia/Blood Transfusion Reactions: No Reported Reaction Past Psychological History: No Psychological Hx Reported Additional Psychological History / Comment(s): Pt resides with his spouse and oziel rodríguez. He is independent. He drives. Smoking Status: Never smoker Past Alcohol Use History: Rare Past Drug Use History: None Reported - Past Family History Father Family Medical History: Congestive Heart Failure (CHF) Additional Family Medical History / Comment(s): Father is 65 yrs old. Mother Family Medical History: No Reported History Additional Family Medical History / Comment(s): Mother is 63 yrs old. Medications and Allergies Home Medications Medication Instructions Recorded Confirmed Type Nystatin [Nystatin Oral Susp] 6 ml PO QID 10 Days #250 ml 10/03/21 10/06/21 Rx Allergies Allergy/AdvReac Type Severity Reaction Status Date / Time No Known Allergies Allergy Verified 10/06/21 15:19 Physical Examination - Vital Signs Vital Signs: Vital Signs Temp Pulse Pulse Resp BP BP Pulse Ox 10/07/21 12:34 97.7 F 103 H 18 120/80 96 10/07/21 09:24 97.7 F 108 H 18 113/92 97 10/07/21 03:30 104 H 19 123/75 96 10/06/21 23:25 114 H 20 118/73 95 10/06/21 21:30 98 F 114 H 19 136/86 95 10/06/21 20:47 97.8 F 102 H 18 128/78 10/06/21 17:48 98.3 F 106 H 22 123/89 98 10/06/21 17:00 101 H 18 129/85 99 10/06/21 15:52 105 H 18 146/89 100 10/06/21 15:17 107 H 18 Intake and Output 10/06/21 10/07/21 10/07/21 22:59 06:59 14:59 Intake Total 420 Output Total 650 Balance -650 420 Intake: Oral 420 Output: Urine 650 Other: Voiding Method Toilet Toilet Toilet Urinal Urinal Urinal # Voids 1 1 Weight 103.419 kg 108.5 kg GENERAL: The patient is lying in bed and is moderate to severe acute distress. CHEST: The heart rate is regular rate rhythm. No murmurs to auscultation. No carotid bruit bilaterally. LUNG: Clear to auscultation bilaterally no wheezing noted throughout. Not labored breathing. ABDOMEN/GI: Bowel sounds present in all 4 quadrants. No tenderness to palpation throughout. NEUROLOGICAL: Higher mental function: The patient is awake, alert, oriented to self, place and time. Patient is following commands. No aphasia and no neglect. Cranial nerves: The pupils are round, equal and reactive to light and a ccommodation. Visual english are full to confrontation throughout. Extraocular movement is intact no nystagmus is noted. Facial sensation is normal to touch throughout. The facial strength is normal throughout. Hearing is normal bilaterally to hand rub. Tongue is midline and moved [id number] without any difficulty. No dysarthria is noted. Shoulder shrug is normal bilaterally. Motor: Gait is deferred because of his weakness and pain. The strength is limited because of pain but proximally has 3/5 throughout. Bilateral hand sonar watchstander are 4+ bilaterally while bilateral ankles are 5/5. Minimal decrease tone but hard to assess because of his pain. Normal bulk. Cerebellum: Normal finger to nose over the right but hard to assess over the left because of pain. Sensation: Sensation is normal to touch and pinprick throughout. Reflexes (right/left): bilateral biceps are 0, patellar are 0 otherwise 1+. Plantars are mute bilaterally. Results - Laboratory Findings CBC and BMP: 10/07/21 08:39 10/07/21 08:39 Abnormal Lab Findings: Abnormal Labs 10/06/21 10/06/21 10/06/21 14:38 14:38 14:38 Plt Count 146 L Neutrophils # 9.1 H Lymphocytes # 0.7 L D-Dimer 0.83 H Sodium 128 L Carbon Dioxide 19 L Creatinine 0.45 L Glucose 258 H POC Glucose (mg/dL) Calcium 7.9 L Ferritin 3935.0 H AST 406 H ALT 144 H Lactate Dehydrogenase 1887 H Creatine Kinase 44698 H* C-Reactive Protein 4.4 H Total Protein 5.8 L Albumin 3.0 L Ur Specific Bear Urine Protein Urine Glucose (UA) Urine Ketones Urine Blood Urine Mucus 10/06/21 10/06/21 10/06/21 17:30 21:31 Unknown Plt Count Neutrophils # Lymphocytes # D-Dimer Sodium Carbon Dioxide Creatinine Glucose POC Glucose (mg/dL) 185 H 204 H Calcium Ferritin AST ALT Lactate Dehydrogenase Creatine Kinase C-Reactive Protein Total Protein Albumin Ur Specific Bear >1.050 H Urine Protein Trace H Urine Glucose (UA) 4+ H Urine Ketones 4+ H Urine Blood Small H Urine Mucus Rare H 10/07/21 10/07/21 10/07/21 06:05 08:39 08:39 Plt Count 131 L Neutrophils # Lymphocytes # 0.6 L D-Dimer Sodium Carbon Dioxide Creatinine Glucose POC Glucose (mg/dL) 160 H Calcium Ferritin AST ALT Lactate Dehydrogenase Creatine Kinase 91935 H* C-Reactive Protein Total Protein Albumin Ur Specific Bear Urine Protein Urine Glucose (UA) Urine Ketones Urine Blood Urine Mucus 10/07/21 10/07/21 08:39 11:39 Plt Count Neutrophils # Lymphocytes # D-Dimer Sodium 129 L Carbon Dioxide Creatinine 0.58 L Glucose 311 H POC Glucose (mg/dL) 255 H Calcium 7.0 L Ferritin AST 336 H ALT 112 H Lactate Dehydrogenase Creatine Kinase C-Reactive Protein Total Protein 4.5 L Albumin 2.2 L Ur Specific Bear Urine Protein Urine Glucose (UA) Urine Ketones Urine Blood Urine Mucus Assessment and Plan Assessment: Predominately proximal extremity weakness with pain, skin rash over right chest and elevated CK levels: 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 Does not appear to fit the typical GBS picture. CT of the abdomen and pelvis is reported as bilateral retroperitoneal edema extending from the lower pole of both kidneys into the pelvis presacral region. Recommend ruling out any mass. Moderate hepatopathy (presented with ASA 406 and ALT 144) Elevated sugar and seem due to Steroid use with history of borderline DM (was as high as 400 and only had 3 days of steroids then was discontinued by his PCP since sugars were in 400's) Acute rhabdoymolysis likely due to myopathy/myositis Acute mild to moderate hyponatremia History of Borderline DM (for past 15 years) Dyslipidemia Plan: * Ordered ESR, TSH, LISETTE, anti-Jo1 abs, antiDSNA, vitamin B-12, folate, hemoglobin A1c. Ordered ammonia level. * We'll consider lumbar puncture down the line if needed. * Primary team ordered Hepatitis B surface abs and C virus RNA. Recommend rest of hepatitis panel. * Ordered CT chest to rule out mass. * Ordered MRI femur/thigh right and MRI shoulder left w/ and w/o STAT. * Every 4 neuro checks * 2D echo is ordered by the primary team * Regarding reported as bilateral retroperitoneal edema extending from the lower pole of both kidneys into the pelvis presacral region per CT abdomen/Plevis will defer further management to the primary team. * Please avoid any statins at this time. * Recommend EMG with NCS of upper and lower extremity as Outpatient [facility] (it is difficulty to get EMG with NCS at different facilities as inpatient). * Will consider muscle possible down the line. * Pulmonary team is on board. I believe patient Short of breath is related to his myopathy/myositis. * Infection disease is consulted by primary team for possible viral infection. * Consulted Rheumatology team. * Consulted physical therapy and occupation therapy * Will defer the rest of medical management to the primary team. The plan is discussed with the patient and his mother who is at bedside Thank you for the consultation. Trino Feldman MD Neuro-Hospitalist Time with Patient: Greater than 30
[2021-10-07 16:52] LABS: Glucose,Whole Blood 189 mg/dL (75-99)
[2021-10-07 19:27] LABS: Creatine Kinase 12810 U/L (55-170)
[2021-10-07 19:51] LABS: Glucose,Whole Blood 227 mg/dL (75-99)
--- NOTE | 2021-10-07 19:59 | MR ---
EXAMINATION TYPE: MR shoulder LT wo/w con DATE OF EXAM: 10/07/2021 COMPARISON: None HISTORY: No prior, body aches and muscle weakness for 2 weeks, no injury CONTRAST: Standard multiplanar, multisequence MRI departmental protocol images were obtained without contrast a nd with 10ml mL intravenous Gadavist gadolinium contrast. The AC joint is intact. There is no significant spurring at the AC joint. There is slight narrowing o f the subacromial joint space. There are small areas of increased signal in the supraspinatus tendon near the attachment on the greater tuberosity of the humerus. There is no retraction. There is probab ly full-thickness tear at the greater tuberosity. The biceps tendon is intact. Subscapularis tendon is intact. The glenoid ashkan appear intact. There i s no evidence of a fracture. Humeral head is intact. Contrast images show significant enhancement around the muscle bundles of the supraspinatus muscle an d the infraspinatus muscle and the teres minor muscle. There is no discrete muscle mass. IMPRESSION: There is evidence for full-thickness tear of the supraspinatus tendon at the greater tuberosity humer us. No retraction. No significant subacromial impingement. No evidence of any significant joint effus ion. There is muscle enhancement involving supraspinatus and infraspinatus and teres minor consistent with some nonspecific myositis.
--- NOTE | 2021-10-07 20:14 | CT ---
EXAMINATION TYPE: CT chest wo/w con DATE OF EXAM: 10/07/2021 COMPARISON: 10/06/2021 HISTORY: muscle weakness CT DLP: 1486 mGycm Automated exposure control for dose reduction was used. CONTRAST: Performed with IV Contrast, patient injected with 100 mL of Isovue 300. Images obtained from the thoracic inlet to the diaphragm without and with IV contrast. There is patchy atelectasis at the lung bases. There is no pneumothorax. Heart size is normal. There is no pericardial effusion. There are no hilar masses. There is no mediastinal adenopathy. Thoracic a ale is intact. There is no aneurysm or dissection. Bony thorax is intact. Thoracic vertebra appear intact. There is no compression fracture. Sternum is intact. There is no cindi dence of a rib fracture. Upper abdominal soft tissues are intact. There is contrast in the kidneys fr om exam yesterday. IMPRESSION: Bilateral basilar linear infiltrates and atelectasis which appear slightly increased compared to yest erday. No suspicious pulmonary mass. Normal heart.
--- NOTE | 2021-10-07 23:15 | P.CONS ---
History of Present Illness - Reason for Consult Consult date: 10/07/21 viral syndrome Requesting physician: Zan Diego - Chief Complaint weakness and body aches x 10 days - History of Present Illness History of present illness : Patient is a 45-year-old male presenting to the ER yesterday afternoon for evaluation of severe body aches shortness of breath and cough generalized weakness and sore throat in this patient symptom has been going on for about 10 days before presentation to the hospital patient has significant body aches and was concerned about a COVID-19 infection patient on presentation to the hospital was afebrile and no fever has been recorded subsequently patient is currently satting 98 200% on room air patient did have a normal white count did have lymphopenia creatinine is normal liver enzymes are elevated urine is negative josé PCR was negative influenza is negative patient did have a chest x-ray normal chest no change patient also have a abdominal pelvis CT shows bilateral high retroperitoneal edema extending from the lower pole of both kidneys into the pelvis of unclear significance CT angiogram of the chest no evidence of PE mild bilateral basilar subsegmental atelectasis patient has been admitted to hospital infectious was consulted with concern for possible viral syndrome Review of system: CONSTITUTIONAL: Positive for weakness along with the fever. EYES: No complaint. ENT: No complaint. RESPIRATORY: As per history of present illness. CARDIOVASCULAR: No complaint. GENITOURINARY: No complaint. GASTROINTESTINAL: No complaint. MUSCULOSKELETAL: No complaint. INTEGUMENTARY: No complaint. PSYCHOLOGIC: No complaint. ENDOCRINE: No complaint. NEUROLOGIC: No complaint. Past medical history : Reviewed, documented below Past surgical history : Reviewed, documented below Social history: Reviewed, documented below Medications: Reviewed, as documented below EXAMINATION: Vital sigans= Reviewed and documented below GENERAL DESCRIPTION: Middle-aged male lying in bed, no distress. No tachypnea or accessory muscle of respiration use. HEENT: Shows Pallor , no scleral icterus. Oral mucous membrane is dry. NECK: Trachea central, no thyromegaly. LUNGS: Unlabored breathing. Clear to auscultation anteriorly. No wheeze or crackle. HEART: S1, S2, regular rate and rhythm. ABDOMEN: Soft, no tenderness , guarding or rigidity EXTREMITIES: No edema of feet. SKIN: No rash, no masses palpable. NEUROLOGICAL: The patient is awake, alert, oriented x3, mood and affect normal. LABS AND RADIOLOGY: Reviewed results see below Assessment : Patient presented to hospital with generalized weakness body aches in this patient symptom has been going on for about 10 days patient did not have any fever during this admission did have a normal white count with lymphopenia and elevated liver enzymes concern for possible viral syndrome patient did have a CT angiogram of the chest that was negative for PE and did not show any evidence of consolidation/pneumonia CT abdominal pelvis did show some nonspecific findings Plan: 1-we will go ahead and check CMV EBV HIV testing hepatitis B and C has already been ordered 2-also check a CRP and procalcitonin level 3-gentle IV fluid and symptomatic treatment for his underlying symptoms We will follow on clinical condition and cultures to further adjust medication if needed Thank you for this consultation we will follow the patient along with you Past Medical History Past Medical History: No Reported History History of Any Multi-Drug Resistant Organisms: None Reported Past Surgical History: Hernia Repair Additional Past Surgical History / Comment(s): sinus surgery Past Anesthesia/Blood Transfusion Reactions: No Reported Reaction Past Psychological History: No Psychological Hx Reported Additional Psychological History / Comment(s): Pt resides with his spouse and children. He is independent. He drives. Smoking Status: Never smoker Past Alcohol Use History: Rare Past Drug Use History: None Reported - Past Family History Father Family Medical History: Congestive Heart Failure (CHF) Additional Family Medical History / Comment(s): Father is 65 yrs old. Mother Family Medical History: No Reported History Additional Family Medical History / Comment(s): Mother is 63 yrs old. Medications and Allergies Home Medications Medication Instructions Recorded Confirmed Type Nystatin [Nystatin Oral Susp] 6 ml PO QID 10 Days #250 ml 10/03/21 10/06/21 Rx Allergies Allergy/AdvReac Type Severity Reaction Status Date / Time No Known Allergies Allergy Verified 10/06/21 15:19 Physical Exam Vitals: Vital Signs Temp Pulse Pulse Resp BP BP Pulse Ox 10/07/21 09:24 97.7 F 108 H 18 113/92 97 10/07/21 03:30 104 H 19 123/75 96 10/06/21 23:25 114 H 20 118/73 95 10/06/21 21:30 98 F 114 H 19 136/86 95 10/06/21 20:47 97.8 F 102 H 18 128/78 10/06/21 17:48 98.3 F 106 H 22 123/89 98 10/06/21 17:00 101 H 18 129/85 99 10/06/21 15:52 105 H 18 146/89 100 10/06/21 15:17 107 H 18 10/06/21 13:24 97.9 F 121 H 20 131/81 98 Intake and Output 10/06/21 10/07/21 10/07/21 22:59 06:59 14:59 Intake Total 180 Output Total 650 Balance -650 180 Intake: Oral 180 Output: Urine 650 Other: Voiding Method Toilet Toilet Urinal Urinal # Voids 1 1 Weight 103.419 kg 108.5 kg Results CBC & Chem 7: 10/07/21 08:39 10/07/21 08:39 Labs: Abnormal Lab Results - Last 24 Hours (Table) 10/06/21 10/06/21 10/06/21 Range/Units 14:38 14:38 14:38 Plt Count 146 L (150-450) k/uL Neutrophils # 9.1 H (1.3-7.7) k/uL Lymphocytes # 0.7 L (1.0-4.8) k/uL D-Dimer 0.83 H (<0.60) mg/L FEU Sodium 128 L (137-145) mmol/L Carbon Dioxide 19 L (22-30) mmol/L Creatinine 0.45 L (0.66-1.25) mg/dL Glucose 258 H (74-99) mg/dL POC Glucose (mg/dL) (75-99) mg/dL Calcium 7.9 L (8.4-10.2) mg/dL Ferritin 3935.0 H (22.0-322.0) ng/mL AST 406 H (17-59) U/L ALT 144 H (4-49) U/L Lactate Dehydrogenase 1887 H (313-618) U/L Creatine Kinase 13431 H* (55-170) U/L C-Reactive Protein 4.4 H (<1.0) mg/dL Total Protein 5.8 L (6.3-8.2) g/dL Albumin 3.0 L (3.5-5.0) g/dL Ur Specific [place] (1.001-1.035) Urine Protein (Negative) Urine Glucose (UA) (Negative) Urine Ketones (Negative) Urine Blood (Negative) Urine Mucus (None) /hpf 10/06/21 10/06/21 10/06/21 Range/Units 17:30 21:31 Unknown Plt Count (150-450) k/uL Neutrophils # (1.3-7.7) k/uL Lymphocytes # (1.0-4.8) k/uL D-Dimer (<0.60) mg/L FEU Sodium (137-145) mmol/L Carbon Dioxide (22-30) mmol/L Creatinine (0.66-1.25) mg/dL Glucose (74-99) mg/dL POC Glucose (mg/dL) 185 H 204 H (75-99) mg/dL Calcium (8.4-10.2) mg/dL Ferritin (22.0-322.0) ng/mL AST (17-59) U/L ALT (4-49) U/L Lactate Dehydrogenase (313-618) U/L Creatine Kinase (55-170) U/L C-Reactive Protein (<1.0) mg/dL Total Protein (6.3-8.2) g/dL Albumin (3.5-5.0) g/dL Ur Specific [place] >1.050 H (1.001-1.035) Urine Protein Trace H (Negative) Urine Glucose (UA) 4+ H (Negative) Urine Ketones 4+ H (Negative) Urine Blood Small H (Negative) Urine Mucus Rare H (None) /hpf 10/07/21 10/07/21 10/07/21 Range/Units 06:05 08:39 08:39 Plt Count 131 L (150-450) k/uL Neutrophils # (1.3-7.7) k/uL Lymphocytes # 0.6 L (1.0-4.8) k/uL D-Dimer (<0.60) mg/L FEU Sodium (137-145) mmol/L Carbon Dioxide (22-30) mmol/L Creatinine (0.66-1.25) mg/dL Glucose (74-99) mg/dL POC Glucose (mg/dL) 160 H (75-99) mg/dL Calcium (8.4-10.2) mg/dL Ferritin (22.0-322.0) ng/mL AST (17-59) U/L ALT (4-49) U/L Lactate Dehydrogenase (313-618) U/L Creatine Kinase 50487 H* (55-170) U/L C-Reactive Protein (<1.0) mg/dL Total Protein (6.3-8.2) g/dL Albumin (3.5-5.0) g/dL Ur Specific [place] (1.001-1.035) Urine Protein (Negative) Urine Glucose (UA) (Negative) Urine Ketones (Negative) Urine Blood (Negative) Urine Mucus (None) /hpf 10/07/21 10/07/21 Range/Units 08:39 11:39 Plt Count (150-450) k/uL Neutrophils # (1.3-7.7) k/uL Lymphocytes # (1.0-4.8) k/uL D-Dimer (<0.60) mg/L FEU Sodium 129 L (137-145) mmol/L Carbon Dioxide (22-30) mmol/L Creatinine 0.58 L (0.66-1.25) mg/dL Glucose 311 H (74-99) mg/dL POC Glucose (mg/dL) 255 H (75-99) mg/dL Calcium 7.0 L (8.4-10.2) mg/dL Ferritin (22.0-322.0) ng/mL AST 336 H (17-59) U/L ALT 112 H (4-49) U/L Lactate Dehydrogenase (313-618) U/L Creatine Kinase (55-170) U/L C-Reactive Protein (<1.0) mg/dL Total Protein 4.5 L (6.3-8.2) g/dL Albumin 2.2 L (3.5-5.0) g/dL Ur Specific [place] (1.001-1.035) Urine Protein (Negative) Urine Glucose (UA) (Negative) Urine Ketones (Negative) Urine Blood (Negative) Urine Mucus (None) /hpf
[2021-10-08] MEDS: HYDROcodone/APAP 5-325MG 1 EACH TAB PO PRN ×4 (00:43→20:47)
[2021-10-08] MEDS: SODIUM CHLORIDE 0.9% 1,000 ML IV SCH ×4 (00:43→20:48)
[2021-10-08 05:11] LABS: Anti-DNA, DS unit <1.0 IU/mL; DNA Double-Stranded NEGATIVE (NEGATIVE)
[2021-10-08 05:37] LABS: JO-1 IgG Antibody <0.2 AI
[2021-10-08 06:27] LABS: Glucose,Whole Blood 149 mg/dL (75-99)
[2021-10-08] MEDS: INSULIN ASPART (NovoLOG) 100 UNIT/ML VIAL SQ SCH ×4 (06:33→20:48)
[2021-10-08] MEDS: ENOXAPARIN 40 MG/0.4 ML SYRINGE SQ SCH (08:53)
[2021-10-08] MEDS: predniSONE 20 MG TAB PO SCH (08:53)
[2021-10-08] MEDS: PANTOPRAZOLE 40 MG/10 ML VIAL IVP SCH (08:54)
[2021-10-08 09:05] LABS: C Reactive Protein 5.9 mg/dL (<1.0)
[2021-10-08 11:28] LABS: Urine Alcohol Negative (Negative); Urine Barbiturate Negative (Negative); Urine Cocaine Negative (Negative); Urine Methadone Negative (Negative); Urine Opiates Positive (Negative); Urine Phencyclidine Negative (Negative)
[2021-10-08 11:36] LABS: Procalcitonin 0.12 ng/mL (0.02-0.09)
[2021-10-08 11:41] LABS: Hepatitis B Surface AB- Quant 3.5 mIU/mL; Hepatitis B Surface Antibody Nonreactive (Nonreactive)
[2021-10-08 12:08] LABS: Glucose,Whole Blood 226 mg/dL (75-99)
[2021-10-08 13:57] VITALS: BMI 34.2
--- NOTE | 2021-10-08 15:03 | P.PN ---
Subjective Progress Note Date: 10/08/21 The patient is seen at bedside and feels about the same. He continues to have pain throughout the body but mostly shoulders, hips, thigh, forearms. Patient denies being on any statins prior to this or using statins that he recalls. I was notified by the patient's nurse Rheumatology are not available since out of town and will be back for service within 2 weeks. Regarding MRI of thigh and arm, I was notified by tech unable to perform Objective - Vital Signs Vital signs: Vital Signs Temp 98.0 F 10/08/21 12:00 Pulse 103 H 10/08/21 12:00 Resp 22 10/08/21 12:00 BP 133/73 10/08/21 12:00 Pulse Ox 93 L 10/08/21 12:00 Intake & Output 10/07/21 10/08/21 10/08/21 18:59 06:59 18:59 Intake Total 420 118 Output Total 800 Balance 420 -800 118 Weight 111.2 kg 111.2 kg Intake: Oral 420 118 Output: Urine 800 Other: Voiding Method Toilet Toilet Toilet Urinal Urinal Urinal - Exam GENERAL: The patient is lying in bed and is moderate to severe acute distress. INTEGUMENARY: There is a rash erythematous rash over the face and it over the nose, and medial side of nasal side of face to medial cheeks bilaterally. Also erythematous rash over the right upper anterior chest. NEUROLOGICAL: Higher mental function: The patient is awake, alert, oriented to self, place and time. Patient is following commands. No aphasia and no neglect. Cranial nerves: The pupils are round, equal and reactive to light and accommodation. Visual english are full to confrontation throughout. Extraocular movement is intact no nystagmus is noted. Facial sensation is normal to touch throughout. The facial strength is normal throughout. Hearing is normal bilaterally to hand rub. Tongue is midline and moved [id number] without any difficulty. No dysarthria is noted. Shoulder shrug is normal bilaterally. Motor: Gait is deferred because of his weakness and pain. The strength is limited because of pain but proximally has 3/5 throughout. Bilateral hand supervisor instrument mechanics are 4+ bilaterally while bilateral ankles are 5/5. Minimal decrease tone but hard to assess because of his pain. Normal bulk. Cerebellum: Normal finger to nose over the right but hard to assess over the left because of pain. Sensation: Sensation is normal to touch and pinprick throughout. Reflexes (right/left): bilateral biceps are 0, patellar are 0 otherwise 1+. Plantars are mute bilaterally. WORK-UP: CK level [place] 11,556[place] [address] (slightly trending up). ESR: 60 CRP is 4.4. Lactate Dehydrogenase is 1887. TSH: 2.580 AST of 406 and ALT of 144. Repeat 336 and ALT 112. Ammonia: <9. Magnesium 1.8 Vitamin B12: 742 Serum Folate: 14.30 Calcium is 7.0 Hemoglobin A1c: 10.0 (prior was 6.3 on 09/17/2021) LISETTE is negative Anti-DNA ab is negative Reba-1 Abs negative SSA and SSB Abs is negative Hep Bs Ab nonreactive Urinalysis is negative for urinary tract infection but has L4 positive for ketones and 4 positive for glucose. Bey virus is nondetected. Influenza A and RNA/POCR (respectively) are as nondetected CT of the abdomen and pelvis root is reported as bilateral retroperitoneal edema extending from the lower pole of both kidneys into the pelvis presacral region. Clinical significance is not clear. MRI shoulder L with and without: Is reported as there is evidence for full- thickness tear of the supraspinatus tendon at the greater tuberosity humerus. N o retraction. No significant subacromial impingement. No evidence of any significant joint effusion. There is muscle enhancement involving the supraspinatus and infraspinatus and teres minor consistent with some nonspecific myositis. CT chest w/ and w/o: Bilateral basilar linear infiltrates and atelectasis which appear slightly increased compared to yesterday. No suspicious pulmonary mass. Normal heart. - Labs CBC & Chem 7: 10/07/21 08:39 10/07/21 08:39 Labs: Abnormal Lab Results - Last 24 Hours (Table) 10/07/21 10/07/21 10/07/21 Range/Units 15:58 15:58 15:58 ESR 60 H (0-15) mm/hr POC Glucose (mg/dL) (75-99) mg/dL Hemoglobin A1c 10.0 H (4.0-6.0) % Creatine Kinase 88069 H* (55-170) U/L C-Reactive Protein (<1.0) mg/dL Procalcitonin (0.02-0.09) ng/mL Urine Opiates Screen (Negative) 10/07/21 10/07/21 10/08/21 Range/Units 16:50 19:49 01:00 ESR (0-15) mm/hr POC Glucose (mg/dL) 189 H 227 H (75-99) mg/dL Hemoglobin A1c (4.0-6.0) % Creatine Kinase (55-170) U/L C-Reactive Protein (<1.0) mg/dL Procalcitonin (0.02-0.09) ng/mL Urine Opiates Screen Positive A (Negative) 10/08/21 10/08/21 10/08/21 Range/Units 06:26 07:50 07:50 ESR (0-15) mm/hr POC Glucose (mg/dL) 149 H (75-99) mg/dL Hemoglobin A1c (4.0-6.0) % Creatine Kinase (55-170) U/L C-Reactive Protein 5.9 H (<1.0) mg/dL Procalcitonin 0.12 H (0.02-0.09) ng/mL Urine Opiates Screen (Negative) 10/08/21 Range/Units 12:07 ESR (0-15) mm/hr POC Glucose (mg/dL) 226 H (75-99) mg/dL Hemoglobin A1c (4.0-6.0) % Creatine Kinase (55-170) U/L C-Reactive Protein (<1.0) mg/dL Procalcitonin (0.02-0.09) ng/mL Urine Opiates Screen (Negative) Assessment and Plan Assessment: * Predominately proximal extremity weakness with pain, skin rash over right chest, face, elevated CK levels, ESR: Appears 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 * CT of the abdomen and pelvis is reported as bilateral retroperitoneal edema extending from the lower pole of both kidneys into the pelvis presacral region. Recommend ruling out any mass. * Moderate hepatopathy (presented with ASA 406 and ALT 144 on initial presentation)---slight trending down * Full-thickness tear of the supraspinatus tendon at the greater tuberosity humerus on MRI * Elevated sugar and seem due to Steroid use with history of borderline DM (was as high as 400 and only had 3 days of steroids then was discontinued by his PCP since sugars were in 400's) * Acute rhabdoymolysis likely due to myopathy/myositis * Acute mild to moderate hyponatremia * Uncontrolled DM (recent HbA1c 10.0 and was Borderline DM. Last HbA1c: 6.3 on 08/2020). * Dyslipidemia Plan: * Started the patient on Prednisone 60mg daily. Started on IV protonix 40mg daily. Recommend close sugar monitoring and will defer that to the primary team. * Could not obtain MRI thigh or arm since unavialble with this MRI machine according to [employer] driver. * Ordered ionized calcium and repeat CK levels. * Please avoid any statins at this time. * Recommend EMG with NCS of upper and lower extremity as Outpatient [facility] (it is difficulty to get EMG with NCS at different facilities as inpatient). * Pending 2D echo. * Every 4 neuro checks * Full-thickness tear of the supraspinatus tendon at the greater tuberosity humerus on MRI: Primary team consulted Orthopetic team. * Regarding reported as bilateral retroperitoneal edema extending from the lower pole of both kidneys into the pelvis presacral region per CT abdomen/Plevis will defer further management to the primary team. * Will consider muscle biopsy down the line. * Pulmonary team is on board. I believe patient Short of breath is related to his myopathy/myositis. * Infection disease is consulted by primary team for possible viral infection. ID team ordered HIV, EBV, CMV. * Consulted Rheumatology team but I was notified they are not available and will be back in service within 2 weeks. * Physical therapy and occupation therapy * Will defer the rest of medical management to the primary team. The plan is discussed with the patient and his nurse in detailed. Trino Felmdan MD Neuro-Hospitalist Time with Patient: Less than 30
--- NOTE | 2021-10-08 15:24 | P.PN ---
Subjective Progress Note Date: 10/08/21 On today's evaluation, the patient denies having any worsening shortness of breath. The muscles are swollen weak and the patient is being seen by neurology and the workup is initiated regarding ongoing rhabdomyolysis. All of the connective tissue disease workup has been negative. Hepatitis B surface an tibodies have been nonreactive urine drug screen was positive for opiates, focused on level was at 0.12, and the patient's LISTETE, SSA, SSB, [id number] DNA and Marc 1 and 2 have been all negative. Meanwhile, the patient's renal function has been stable. The patient's CPK has been still elevated at 12,810. Troponins have been negative. The patient continues to be rhabdomyolysis. Objective - Vital Signs Vital signs: Vital Signs Temp 98.0 F 10/08/21 12:00 Pulse 103 H 10/08/21 12:00 Resp 22 10/08/21 12:00 BP 133/73 10/08/21 12:00 Pulse Ox 93 L 10/08/21 12:00 Intake & Output 10/07/21 10/08/21 10/08/21 18:59 06:59 18:59 Intake Total 420 236 Output Total 800 Balance 420 -800 236 Weight 111.2 kg 111.2 kg Intake: Oral 420 236 Output: Urine 800 Other: Voiding Method Toilet Toilet Toilet Urinal Urinal Urinal - Exam In general patient is alert and oriented x 3 in no distress Head exam was generally normal. There was no scleral icterus or corneal arcus. Mucous membranes were moist. HEENT head normocephalic and atraumatic Neck is supple no JVD no goiter no lymphadenopathy no carotid bruit Chest examination is clear to auscultation no crackles no wheezing Cardiac exam reveals regular heart sounds S1 and S2 no gallops no murmurs Abdomen is soft nontender no organomegaly with normal bowel sounds Extremity exam reveals no edema no cyanosis or clubbing, there is a rectal soreness of the muscles in the lower extremity is bilaterally. Neurological examination reveals generalized muscle weakness, without any focal deficit, and the patient diminished reflexes in all 4 extremity especially lower extremities. No Babinski. No clonus. The motor function is weak and the patient has motor function around 4 out of 5 which is symmetrical weak and lower extremities. - Labs CBC & Chem 7: 10/07/21 08:39 12/20/21 08:39 Labs: Abnormal Lab Results - Last 24 Hours (Table) 10/07/21 10/07/21 10/07/21 Range/Units 15:58 15:58 15:58 ESR 60 H (0-15) mm/hr POC Glucose (mg/dL) (75-99) mg/dL Hemoglobin A1c 10.0 H (4.0-6.0) % Creatine Kinase 30423 H* (55-170) U/L C-Reactive Protein (<1.0) mg/dL Procalcitonin (0.02-0.09) ng/mL Urine Opiates Screen (Negative) 10/07/21 10/07/21 10/08/21 Range/Units 16:50 19:49 01:00 ESR (0-15) mm/hr POC Glucose (mg/dL) 189 H 227 H (75-99) mg/dL Hemoglobin A1c (4.0-6.0) % Creatine Kinase (55-170) U/L C-Reactive Protein (<1.0) mg/dL Procalcitonin (0.02-0.09) ng/mL Urine Opiates Screen Positive A (Negative) 10/08/21 10/08/21 10/08/21 Range/Units 06:26 07:50 07:50 ESR (0-15) mm/hr POC Glucose (mg/dL) 149 H (75-99) mg/dL Hemoglobin A1c (4.0-6.0) % Creatine Kinase (55-170) U/L C-Reactive Protein 5.9 H (<1.0) mg/dL Procalcitonin 0.12 H (0.02-0.09) ng/mL Urine Opiates Screen (Negative) 10/08/21 Range/Units 12:07 ESR (0-15) mm/hr POC Glucose (mg/dL) 226 H (75-99) mg/dL Hemoglobin A1c (4.0-6.0) % Creatine Kinase (55-170) U/L C-Reactive Protein (<1.0) mg/dL Procalcitonin (0.02-0.09) ng/mL Urine Opiates Screen (Negative) Assessment and Plan Plan: 1 acute rhabdomyolysis, exact cause is unclear, currently under investigation. Rule out severe myositis and the patient started on prednisone 2 acute muscular weakness with diminished effects in lower oximetry is bilaterally, questionable ascending paralysis, consider underlying post viral demyelinating polyneuropathy, neurology will be consulted. 3 shortness of breath without any obvious lung disease. This could be related to his underlying neuromuscular weakness. Computed tomography scan of the chest was negative and the patient has some limited atelectatic changes in lung bases bilaterally. 4 acute hyponatremia, stable, improving the sodium level is at 129 5 acute anion gap metabolic acidosis, recovered 6 mild thrombocytopenia, stable with a platelet count of 131 7 hyperglycemia, consider underlying diabetes mellitus Plan Investigate myositis/rhabdomyolysis Agree on prednisone Continue IV fluids Monitor CPK , levels are still elevated Provide the patient incentive spirometer We'll check a vital capacity and a NIF should the patient developed any signs of any further respiratory compromise. All respiratory status is stable We'll see this patient on an as-needed basis
--- NOTE | 2021-10-08 16:36 | P.CNOR ---
History of Present Illness - [facility] Consult date: 10/08/21 Requesting physician: Zan Diego Consult reason: other (Shoulder pain) History of present illness: Patient is a 45-year-old male presenting the emergency room on 10/06/2021 with chief complaint of bodyaches, SOB, cough, generalized weakness. Patient was seen at bedside today lying semirecumbent in bed. Patient says he began having the symptoms about 15 or 16 days ago. Patient was assessed for COVID-19, influenza A and B, RSV virus and tests are negative. Patient says he began to develop generalized muscle weakness in the bilateral hips and shoulders. Patient did have elevated CK level. Pulmonary, neurology, cardio and medicine and the following. We have been consulted for left shoulder pain. MRI performed yesterday revealed left shoulder rotator cuff tear. Patient says about 2 weeks ago when he began having the symptoms he also began having some shoulder weakness. This progressed since he's been in the hospital he says he did have an IV in his left arm that didn't hold and since then he says left arm swelled up. Patient denies any previous orthopedic surgical history. Patient denies any previous shoulder surgeries. Patient denies any recent falls/trauma spell left shoulder. Patient says he is not able lift his left arm at all. Patient says he had received the COVID-19 vaccine back in December and January 2021. Patient denies increasing chest pain, anchors contrast breath, nausea, vomiting, change in vision, loss of bowel/bladder control. Past Medical History Past Medical History: No Reported History History of Any Multi-Drug Resistant Organisms: None Reported Past Surgical History: Hernia Repair Additional Past Surgical History / Comment(s): sinus surgery Past Anesthesia/Blood Transfusion Reactions: No Reported Reaction Past Psychological History: No Psychological Hx Reported Additional Psychological History / Comment(s): Pt resides with his spouse and children. He is independent. He drives. Smoking Status: Never smoker Past Alcohol Use History: Rare Past Drug Use History: None Reported - Past Family History Father Family Medical History: Congestive Heart Failure (CHF) Additional Family Medical History / Comment(s): Father is 65 yrs old. Mother Family Medical History: No Reported History Additional Family Medical History / Comment(s): Mother is 63 yrs old. Medications and Allergies Home Medications Medication Instructions Recorded Confirmed Type Nystatin [Nystatin Oral Susp] 6 ml PO QID 10 Days #250 ml 10/03/21 10/06/21 Rx Allergies Allergy/AdvReac Type Severity Reaction Status Date / Time No Known Allergies Allergy Verified 10/06/21 15:19 Physical Examination Inspection: Negative for any open fractures, ecchymosis, erythema, nodules. Left arm -There is evident swelling along the left forearm. Negative for any lymphangitis/streaking. Negative for any ecchymosis. Sensation: Sensation is equal, symmetric, bilateral intact throughout exam in bilateral upper and lower extremities Palpation: Patient does have some tenderness with palpation over the acromion on the left shoulder. Nontender to palpation throughout rest exam Range of motion: Patient is not able to flex/extend the left elbow due to pain/weakness. Patient is unable flex/extend/ the left shoulder due to weakness/pain. Patient is able to flex and extend the left wrists and digits in the left hand. Patient's unable to flex/extend bilateral hips due to pain/weakness. Patient is able to flex/extend bilateral knees. Patient has full range of motion in bilateral plantar/dorsiflexion of ankles. Motor: Left shoulder and left elbow motor exams unable to be performed due to extreme weakness/pain. Resisted Bilateral hips flexion/extension unable to be performed due to extreme weakness/pain. 4+/5 in all other major motor groups Neurovascular status: Capillary refill under 3 seconds bilaterally and digits in hands. Radial pulses intact, bilaterally 2+. Special tests: Negative Homans bilaterally; positive empty can test left shoulder Results - Labs Labs: Abnormal Lab Results - Last 24 Hours (Table) 10/07/21 10/07/21 10/07/21 Range/Units 15:58 15:58 15:58 ESR 60 H (0-15) mm/hr POC Glucose (mg/dL) (75-99) mg/dL Hemoglobin A1c 10.0 H (4.0-6.0) % Creatine Kinase 60517 H* (55-170) U/L C-Reactive Protein (<1.0) mg/dL Procalcitonin (0.02-0.09) ng/mL Urine Opiates Screen (Negative) 10/07/21 10/07/21 10/08/21 Range/Units 16:50 19:49 01:00 ESR (0-15) mm/hr POC Glucose (mg/dL) 189 H 227 H (75-99) mg/dL Hemoglobin A1c (4.0-6.0) % Creatine Kinase (55-170) U/L C-Reactive Protein (<1.0) mg/dL Procalcitonin (0.02-0.09) ng/mL Urine Opiates Screen Positive A (Negative) 10/08/21 10/08/21 10/08/21 Range/Units 06:26 07:50 07:50 ESR (0-15) mm/hr POC Glucose (mg/dL) 149 H (75-99) mg/dL Hemoglobin A1c (4.0-6.0) % Creatine Kinase (55-170) U/L C-Reactive Protein 5.9 H (<1.0) mg/dL Procalcitonin 0.12 H (0.02-0.09) ng/mL Urine Opiates Screen (Negative) 10/08/21 Range/Units 12:07 ESR (0-15) mm/hr POC Glucose (mg/dL) 226 H (75-99) mg/dL Hemoglobin A1c (4.0-6.0) % Creatine Kinase (55-170) U/L C-Reactive Protein (<1.0) mg/dL Procalcitonin (0.02-0.09) ng/mL Urine Opiates Screen (Negative) H & H 10/06/21 10/07/21 Range/Units 14:38 08:39 Hgb 17.1 14.1 D (13.0-17.5) gm/dL Hct 49.6 42.3 (39.0-53.0) % Coagulation 10/06/21 Range/Units 14:38 INR 0.9 (<1.2) Result Diagrams: 10/07/21 08:39 10/07/21 08:39 Assessment and Plan Assessment: 1. Left shoulder rotator cuff tear 2. Multiple medical comorbidities Plan: 1. Left shoulder rotator cuff tear - MRI of left shoulder displays tear in the supraspinatus rotator cuff muscle. At this time did we do not recommend any urgent/emergent orthopedic surgical intervention. We do recommend patient to follow-up in the outpatient setting for this. We do encourage patient to continue to move arm to limit shoulder from stiffening up. Sling will also be ordered. We'll continue to follow patient while in the hospital. 2. Appreciate medical management; appreciate neuro management; appreciate car diology management; appreciate pulmonology management 3. Appreciate consult 4. Pain management - Angier; Tylenol 5. DVT prophylaxis - Lovenox 6. GI prophylaxis -Protonix 7. PT/OT - Left arm - avoid abduction-rotation; avoid empty can exercises Time with Patient: Less than 30
[2021-10-08 16:51] LABS: Glucose,Whole Blood 272 mg/dL (75-99)
[2021-10-08 18:02] LABS: Rheumatoid Factor, Qnt <10 IU/mL (0-15)
[2021-10-08 18:54] LABS: EBV-EA (IgG) <0.2 AI; EBV-EBNA(IgG) >8.0 AI; EBV-VCA (IgG) >8.0 AI
--- NOTE | 2021-10-08 19:32 | P.PN ---
Subjective Progress Note Date: 10/08/21 James Reyes, is a year old male who presented to [facility] emergency room with a chief complaint of generalized body ache, cough and shortness of breath, symptoms started 10 days prior to this admission, patient had 3 visits to emergency room due to similar symptoms, he was tested for COVID- 19, influenza A and B, and RSV virus, all these tests were negative, patient condition continued to worsen, patient developed worsening generalized muscle weakness and pain in bilateral hips and shoulder area , during this presentation he had evidence of rhabdomyolysis was elevated creatinine kinase at 11,556 LDH was elevated at 1887, AST 406, ALT 144, d-dimer was also elevated at 0.83, chest x-ray revealed mild bilateral atelectasis, computed tomography scan of the chest did not reveal evidence of pulmonary embolism, computed tomography scan of the abdomen and pelvis revealed fluid collection in the retroperitoneal area, otherwise no significant abnormality, patient was admitted to medical floor for further evaluation and treatment, pulmonary consultation was requested, neurology consultation was requested for 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 Patient denies any significant past medical history, he stated that he was vaccinated for COVID-19 he received the Moderna vaccine in December and January of this year, there is no history of smoking, he drinks alcohol rarely, he stated that he had 3 alcoholic drinks on September 05 and had no alcoholic drinks since then. On 10/08/2021 patient was seen and examined on the telemetry floor he is alert and oriented 3 in no apparent distress he denies any chest pain or shortness of breath there is no fever or chills no dizziness he is complaining of muscle aches and severe weakness, otherwise he denies any complaints at this time. Patient has evidence of rhabdomyolysis and CPK is higher today than yesterday at 12,810, liver enzymes AST and ALT are elevated at 336 and 112 respectively, which is mildly lower than yesterday, C-reactive protein is elevated at 5.9, influenza A and B are negative, rheumatoid factor and LISETTE screen are all negative, hepatitis B screen is negative however Zenia-Lowe virus capsid Ag IgG is positive. At this time neurology pulmonary and infectious disease are following, patient was started on prednisone 60 mg by mouth daily by neurology. MRI of the left shoulder revealed evidence of full thickness tear of the supraspinatus tendon, orthopedic consultation was requested. Objective - Vital Signs Vital signs: Vital Signs Temp 98.0 F 10/08/21 12:00 Pulse 103 H 10/08/21 12:00 Resp 22 10/08/21 12:00 BP 133/73 10/08/21 12:00 Pulse Ox 93 L 10/08/21 12:00 Intake & Output 10/07/21 10/08/21 10/08/21 18:59 06:59 18:59 Intake Total 420 118 Output Total 800 Balance 420 -800 118 Weight 111.2 kg 111.2 kg Intake: Oral 420 118 Output: Urine 800 Other: Voiding Method Toilet Toilet Toilet Urinal Urinal Urinal - Exam In general patient is alert and oriented x 3 in no distress HEENT head normocephalic and atraumatic Neck is supple no JVD no goiter no lymphadenopathy no carotid bruit Chest examination is clear to auscultation no crackles no wheezing Cardiac exam reveals regular heart sounds S1 and S2 no gallops no murmurs Abdomen is soft nontender no organomegaly with normal bowel sounds Extremity exam reveals no edema no cyanosis or clubbing Neurological examination reveals generalized muscle weakness, without any focal deficit - Labs CBC & Chem 7: 10/07/21 08:39 10/07/21 08:39 Labs: Abnormal Lab Results - Last 24 Hours (Table) 10/07/21 10/07/21 10/07/21 Range/Units 15:58 15:58 15:58 ESR 60 H (0-15) mm/hr POC Glucose (mg/dL) (75-99) mg/dL Hemoglobin A1c 10.0 H (4.0-6.0) % Creatine Kinase 36806 H* (55-170) U/L C-Reactive Protein (<1.0) mg/dL Procalcitonin (0.02-0.09) ng/mL Urine Opiates Screen (Negative) 10/07/21 10/07/21 10/08/21 Range/Units 16:50 19:49 01:00 ESR (0-15) mm/hr POC Glucose (mg/dL) 189 H 227 H (75-99) mg/dL Hemoglobin A1c (4.0-6.0) % Creatine Kinase (55-170) U/L C-Reactive Protein (<1.0) mg/dL Procalcitonin (0.02-0.09) ng/mL Urine Opiates Screen Positive A (Negative) 10/08/21 10/08/21 10/08/21 Range/Units 06:26 07:50 07:50 ESR (0-15) mm/hr POC Glucose (mg/dL) 149 H (75-99) mg/dL Hemoglobin A1c (4.0-6.0) % Creatine Kinase (55-170) U/L C-Reactive Protein 5.9 H (<1.0) mg/dL Procalcitonin 0.12 H (0.02-0.09) ng/mL Urine Opiates Screen (Negative) 10/08/21 Range/Units 12:07 ESR (0-15) mm/hr POC Glucose (mg/dL) 226 H (75-99) mg/dL Hemoglobin A1c (4.0-6.0) % Creatine Kinase (55-170) U/L C-Reactive Protein (<1.0) mg/dL Procalcitonin (0.02-0.09) ng/mL Urine Opiates Screen (Negative) Assessment and Plan Plan: Upper respiratory infection likely viral, with sore throat, cough and shortness of breath Rhabdomyolysis, with elevated creatinine kinase at 11,556 Elevated AST and ALT, will check hepatitis B and C profile Hyponatremia sodium on presentation 128 Generalized muscle weakness and muscle pain, 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
[2021-10-08 20:34] LABS: Glucose,Whole Blood 256 mg/dL (75-99)
[2021-10-08 22:23] LABS: HIV 2 AB Non-Reactive (Non-Reactive); HIV AB P24 Non-Reactive (Non-Reactive); HIV P24 AG Non-Reactive (Non-Reactive)
--- NOTE | 2021-10-08 22:29 | PN ---
PROGRESS NOTE DATE OF SERVICE: 10/08/2021 REASON FOR FOLLOWUP: Elevated LFTs and a question of viral syndrome. INTERVAL HISTORY: The patient is afebrile. Still complaining of body aches and pain. The patient denies having any chest pain, shortness of breath. No worsening cough or sputum production. No abdominal pain or diarrhea. PHYSICAL EXAMINATION: Blood pressure 137/89 with pulse of 101, temperature 97.8. He is 95% on room air. General description is a middle-aged male lying in bed in no distress. Respiratory system: Unlabored breathing. Clear to auscultation anteriorly. Heart S1, S2. Regular rate and rhythm. Abdomen soft, no tenderness. LABS: No livers enzymes were checked today. EBV serology is showing IgG positive, likely representing previous infection, not acute hepatitis DIAGNOSTIC IMPRESSION AND PLAN: Patient complaining of generalized body aches. Did have abnormal findings of elevated liver enzymes and a question of viral syndrome. Waiting for CMV serology. Hepatitis serology will be ordered again as well as liver enzymes, and we will monitor his clinical course closely. MMODL / IJN: [id number] /
[2021-10-09] MEDS: HYDROcodone/APAP 5-325MG 1 EACH TAB PO PRN ×4 (01:06→20:56)
[2021-10-09] MEDS: SODIUM CHLORIDE 0.9% 1,000 ML IV SCH ×3 (05:22→20:57)
[2021-10-09] MEDS: INSULIN ASPART (NovoLOG) 100 UNIT/ML VIAL SQ SCH ×4 (06:30→20:56)
[2021-10-09 06:35] LABS: Glucose,Whole Blood 163 mg/dL (75-99)
[2021-10-09] MEDS: predniSONE 20 MG TAB PO SCH (08:08)
[2021-10-09] MEDS: PANTOPRAZOLE 40 MG/10 ML VIAL IVP SCH (08:08)
[2021-10-09] MEDS: ENOXAPARIN 40 MG/0.4 ML SYRINGE SQ SCH (08:08)
[2021-10-09 08:22] LABS: ALT 123 U/L (4-49); AST 312 U/L (17-59); African American GFR (CKD) >90 (>60 ml/min/1.73 sqM); Albumin 2.2 g/dL (3.5-5.0); Alkaline Phosphatase 54 U/L (38-126); Anion Gap 4 mmol/L; Bilirubin, Delta 0.3 mg/dL (0.0-0.2); Bilirubin,Unconjugated 0.3 mg/dL (0.0-1.1); Blood Urea Nitrogen 11 mg/dL (9-20); Calcium 7.4 mg/dL (8.4-10.2); Carbon Dioxide 23 mmol/L (22-30); Chloride 104 mmol/L (98-107); Glucose 142 mg/dL (74-99); Non-African American GFR(CKD) >90 (>60 ml/min/1.73 sqM); Potassium 3.6 mmol/L (3.5-5.1); Sodium 131 mmol/L (137-145); Total Bilirubin 0.6 mg/dL (0.2-1.3); Total Protein 4.6 g/dL (6.3-8.2)
[2021-10-09 08:32] LABS: Basophils % (A) 0 %; Eosinophils % (A) 1 %; HCT 38.9 % (39.0-53.0); HGB 13.1 gm/dL (13.0-17.5); Lymphocytes # (A) 0.7 k/uL (1.0-4.8); Lymphocytes % (A) 14 %; MCH 29.5 pg (25.0-35.0); MCHC 33.8 g/dL (31.0-37.0); MCV 87.4 fL (80.0-100.0); Mean Platelet Volume 9.1; Monocytes # (A) 0.4 k/uL (0-1.0); Monocytes % (A) 8 %; Neutrophils # (A) 3.8 k/uL (1.3-7.7); Neutrophils % (A) 76 %; Platelet Count 135 k/uL (150-450); RBC 4.45 m/uL (4.30-5.90); RDW 13.6 % (11.5-15.5)
[2021-10-09 08:47] LABS: Creatine Kinase 7676 U/L (55-170)
[2021-10-09 08:53] LABS: Ionized Calcium 4.6 mg/dL (4.5-5.3)
--- NOTE | 2021-10-09 09:38 | ECHOF ---
Referral Reason:shortness of breath MEASUREMENTS -------- HEIGHT: 180.3 cm WEIGHT: 108.4 kg BP: 123/75 RVIDd: 2.7 cm (< 3.3) IVSd: 1.5 cm (0.6 - 1.1) LVIDd: 3.3 cm (3.9 - 5.3) LVPWd: 1.6 cm (0.6 - 1.1) IVSs: 1.8 cm LVIDs: 2.1 cm LVPWs: 1.7 cm LAESV Index (A-L): 17.53 ml/m Ao Diam: 3.2 cm (2.0 - 3.7) AV Cusp: 1.6 cm (1.5 - 2.6) LA Diam: 3.0 cm (2.7 - 3.8) MV EXCURSION: 17.297 mm (> 18.000) MV EF SLOPE: 55 mm/s (70 - 150) EPSS: 0.9 cm MV E Jesus: 0.50 m/s MV DecT: 180 ms MV A Jesus: 0.49 m/s MV E/A Ratio: 1.02 RAP: 5.00 mmHg RVSP: 28.00 mmHg FINDINGS -------- Sinus rhythm. This was a technically adequate study. The left ventricular size is normal. There is moderate concentric left ventricular hypertrophy. O verall left ventricular systolic function is normal with, an EF between 55 - 60 %. The right ventricle is normal in size. The left atrial size is normal. The right atrial size is normal. Interatrial and interventricular septum intact. There is no evidence of aortic regurgitation. There is no evidence of aortic stenosis. No mitral regurgitation. Mild tricuspid regurgitation present. There is no evidence of pulmonary hypertension. The right v entricular systolic pressure, as measured by Doppler, is 28.00mmHg. There is no pulmonic regurgitation present. The aortic root size is normal. IVC Not well visulized. There is no pericardial effusion. CONCLUSIONS -------- 1. The left ventricular size is normal. 2. There is moderate concentric left ventricular hypertrophy. 3. Overall left ventricular systolic function is normal with, an EF between 55 - 60 %. 4. Mild tricuspid regurgitation present. FINISHING RANGE SUPERVISOR: Josiane Wiggins [facility]
--- NOTE | 2021-10-09 10:26 | P.PN ---
Subjective Progress Note Date: 10/09/21 James Reyes, is a year old male who presented to [facility] emergency room with a chief complaint of generalized body ache, cough and shortness of breath, symptoms started 10 days prior to this admission, patient had 3 visits to emergency room due to similar symptoms, he was tested for COVID- 19, influenza A and B, and RSV virus, all these tests were negative, patient condition continued to worsen, patient developed worsening generalized muscle weakness and pain in bilateral hips and shoulder area , during this presentation he had evidence of rhabdomyolysis was elevated creatinine kinase at 11,556 LDH was elevated at 1887, AST 406, ALT 144, d-dimer was also elevated at 0.83, chest x-ray revealed mild bilateral atelectasis, computed tomography scan of the chest did not reveal evidence of pulmonary embolism, computed tomography scan of the abdomen and pelvis revealed fluid collection in the retroperitoneal area, otherwise no significant abnormality, patient was admitted to medical floor for further evaluation and treatment, pulmonary consultation was requested, neurology consultation was requested for 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 Patient denies any significant past medical history, he stated that he was vaccinated for COVID-19 he received the Moderna vaccine in December and January of this year, there is no history of smoking, he drinks alcohol rarely, he stated that he had 3 alcoholic drinks on September 05 and had no alcoholic drinks since then. On 10/08/2021 patient was seen and examined on the telemetry floor he is alert and oriented 3 in no apparent distress he denies any chest pain or shortness of breath there is no fever or chills no dizziness he is complaining of muscle aches and severe weakness, otherwise he denies any complaints at this time. Patient has evidence of rhabdomyolysis and CPK is higher today than yesterday at 12,810, liver enzymes AST and ALT are elevated at 336 and 112 respectively, which is mildly lower than yesterday, C-reactive protein is elevated at 5.9, influenza A and B are negative, rheumatoid factor and LISETTE screen are all negative, hepatitis B screen is negative however Zenia-Lowe virus capsid Ag IgG is positive. At this time neurology pulmonary and infectious disease are following, patient was started on prednisone 60 mg by mouth daily by neurology. MRI of the left shoulder revealed evidence of full thickness tear of the supraspinatus tendon, orthopedic consultation was requested. On 1patient is alert and oriented 3. CK down to 7676. Patient re adelaida on steroids. Patient reports minimum improvement while on steroids. Patient maintained on prednisone 60 mg daily. Infectious disease neurology pulmonary and orthopedic services are following. No further workup inpatient per orthopedic services. Patient denies chest pain. Patient denies shortness breath. Patient denies nausea vomiting or diarrhea. Patient denies any urinary burning or frequency Objective - Vital Signs Vital signs: Vital Signs Temp 98.1 F 10/09/21 08:00 Pulse 108 H 10/09/21 08:00 Resp 18 10/09/21 08:00 BP 142/92 10/09/21 08:00 Pulse Ox 94 L 10/09/21 08:00 Intake & Output 10/08/21 10/09/21 10/09/21 18:59 06:59 18:59 Intake Total 354 240 Balance 354 240 Weight 111.2 kg Intake: Oral 354 240 Other: Voiding Method Toilet Toilet Urinal Urinal # Voids 1 - Exam In general patient is alert and oriented x 3 in no distress HEENT head normocephalic and atraumatic Neck is supple no JVD no goiter no lymphadenopathy no carotid bruit Chest examination is clear to auscultation no crackles no wheezing Cardiac exam reveals regular heart sounds S1 and S2 no gallops no murmurs Abdomen is soft nontender no organomegaly with normal bowel sounds Extremity exam reveals no edema no cyanosis or clubbing Neurological examination reveals generalized muscle weakness, without any focal deficit - Labs CBC & Chem 7: 10/09/21 07:15 10/09/21 07:15 Labs: Abnormal Lab Results - Last 24 Hours (Table) 10/07/21 10/08/21 10/08/21 Range/Units 15:58 01:00 07:50 Hct (39.0-53.0) % Plt Count (150-450) k/uL Lymphocytes # (1.0-4.8) k/uL Sodium (137-145) mmol/L Creatinine (0.66-1.25) mg/dL Glucose (74-99) mg/dL POC Glucose (mg/dL) (75-99) mg/dL Calcium (8.4-10.2) mg/dL Delta Bilirubin (0.0-0.2) mg/dL AST (17-59) U/L ALT (4-49) U/L Creatine Kinase (55-170) U/L Total Protein (6.3-8.2) g/dL Albumin (3.5-5.0) g/dL Aldolase 49.3 H (1.2-7.6) U/L Procalcitonin 0.12 H (0.02-0.09) ng/mL Urine Opiates Screen Positive A (Negative) EBV Capsid Ag IgG Intrp (NEGATIVE) EBV Nuc Ag IgG Interp (NEGATIVE) 10/08/21 10/08/21 10/08/21 Range/Units 07:50 12:07 16:50 Hct (39.0-53.0) % Plt Count (150-450) k/uL Lymphocytes # (1.0-4.8) k/uL Sodium (137-145) mmol/L Creatinine (0.66-1.25) mg/dL Glucose (74-99) mg/dL POC Glucose (mg/dL) 226 H 272 H (75-99) mg/dL Calcium (8.4-10.2) mg/dL Delta Bilirubin (0.0-0.2) mg/dL AST (17-59) U/L ALT (4-49) U/L Creatine Kinase (55-170) U/L Total Protein (6.3-8.2) g/dL Albumin (3.5-5.0) g/dL Aldolase (1.2-7.6) U/L Procalcitonin (0.02-0.09) ng/mL Urine Opiates Screen (Negative) EBV Capsid Ag IgG Intrp POSITIVE A (NEGATIVE) EBV Nuc Ag IgG Interp POSITIVE A (NEGATIVE) 10/08/21 10/09/21 10/09/21 Range/Units 20:32 06:26 07:15 Hct (39.0-53.0) % Plt Count (150-450) k/uL Lymphocytes # (1.0-4.8) k/uL Sodium 131 L (137-145) mmol/L Creatinine 0.41 L (0.66-1.25) mg/dL Glucose 142 H (74-99) mg/dL POC Glucose (mg/dL) 256 H 163 H (75-99) mg/dL Calcium 7.4 L (8.4-10.2) mg/dL Delta Bilirubin 0.3 H (0.0-0.2) mg/dL AST 312 H (17-59) U/L ALT 123 H (4-49) U/L Creatine Kinase 7676 H* (55-170) U/L Total Protein 4.6 L (6.3-8.2) g/dL Albumin 2.2 L (3.5-5.0) g/dL Aldolase (1.2-7.6) U/L Procalcitonin (0.02-0.09) ng/mL Urine Opiates Screen (Negative) EBV Capsid Ag IgG Intrp (NEGATIVE) EBV Nuc Ag IgG Interp (NEGATIVE) 10/09/21 Range/Units 07:15 Hct 38.9 L (39.0-53.0) % Plt Count 135 L (150-450) k/uL Lymphocytes # 0.7 L (1.0-4.8) k/uL Sodium (137-145) mmol/L Creatinine (0.66-1.25) mg/dL Glucose (74-99) mg/dL POC Glucose (mg/dL) (75-99) mg/dL Calcium (8.4-10.2) mg/dL Delta Bilirubin (0.0-0.2) mg/dL AST (17-59) U/L ALT (4-49) U/L Creatine Kinase (55-170) U/L Total Protein (6.3-8.2) g/dL Albumin (3.5-5.0) g/dL Aldolase (1.2-7.6) U/L Procalcitonin (0.02-0.09) ng/mL Urine Opiates Screen (Negative) EBV Capsid Ag IgG Intrp (NEGATIVE) EBV Nuc Ag IgG Interp (NEGATIVE) Assessment and Plan Plan: Upper respiratory infection likely viral, with sore throat, cough and shortness of breath Rhabdomyolysis, with elevated creatinine kinase at 11,556. 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
[2021-10-09 11:37] LABS: Glucose,Whole Blood 242 mg/dL (75-99)
[2021-10-09 16:42] LABS: Glucose,Whole Blood 243 mg/dL (75-99)
[2021-10-09 16:55] LABS: Hepatitis A Antibody IgM Nonreactive (Nonreactive); Hepatitis B Core IgM Nonreactive (Nonreactive); Hepatitis B Surface Antigen Nonreactive (Nonreactive); Hepatitis C IgG Antibody Nonreactive (Nonreactive)
--- NOTE | 2021-10-09 18:11 | P.PN ---
Subjective Progress Note Date: 10/09/21 The patient is seen at bedside and feels he doing better today compared to yesterday. Objective - Vital Signs Vital signs: Vital Signs Temp 97.8 F 10/09/21 14:58 Pulse 92 10/09/21 14:58 Resp 16 10/09/21 14:58 BP 139/73 10/09/21 14:58 Pulse Ox 93 L 10/09/21 14:58 Intake & Output 10/08/21 10/09/21 10/09/21 18:59 06:59 18:59 Intake Total 354 478 Balance 354 478 Weight 111.2 kg Intake: Oral 354 478 Other: Voiding Method Toilet Toilet Urinal Urinal # Voids 1 3 - Exam GENERAL: The patient is lying in bed and is moderate to severe acute distress. INTEGUMENARY: There is a rash erythematous rash over the face and it over the nose, and medial side of nasal side of face to medial cheeks bilaterally and eyebrows. Also erythematous rash over the right upper anterior chest. NEUROLOGICAL: Higher mental function: The patient is awake, alert, oriented to self, place and time. Patient is following commands. No aphasia and no neglect. Cranial nerves: The pupils are round, equal and reactive to light and accommodation. Visual english are full to confrontation throughout. Extraocular movement is intact no nystagmus is noted. Facial sensation is normal to touch throughout. The facial strength is normal throughout. Hearing is normal bilaterally to hand rub. Tongue is midline and moved [id number] without any difficulty. No dysarthria is noted. Shoulder shrug is normal bilaterally. Motor: Gait is deferred because of his weakness and pain. The strength is limited because of pain but proximally has 3/5 throughout. Bilateral hand chief radiation therapist are 4+ bilaterally while bilateral ankles are 5/5. Minimal decrease tone but hard to assess because of his pain. Normal bulk. Cerebellum: Normal finger to nose over the right but hard to assess over the left because of pain. Sensation: Sensation is normal to touch and pinprick throughout. Reflexes (right/left): bilateral biceps are 0, patellar are 0 otherwise 1+. Plantars are mute bilaterally. WORK-UP: CK level is 11,556-->[place] [address]-->7676 ESR: 60 CRP is 4.4. Lactate Dehydrogenase is 1887. TSH: 2.580 AST of 406 and ALT of 144. Repeat 336 and ALT 112. Ammonia: <9. Magnesium 1.8 Ionized Calcium 4.6 (low normal). Vitamin B12: 742 Serum Folate: 14.30 Calcium is 7.0 Hemoglobin A1c: 10.0 (prior was 6.3 on 09/17/2021) RF: <10 HCV RNA not detected HIV 1/2 abs non-reactive. HIV 24 ab non-reactive LISETTE is negative Anti-DNA ab is negative Reba-1 Abs negative SSA and SSB Abs is negative Hep Bs Ab nonreactive Urinalysis is negative for urinary tract infection but has L4 positive for ketones and 4 positive for glucose. Bey virus is nondetected. Influenza A and RNA/POCR (respectively) are as nondetected CT of the abdomen and pelvis root is reported as bilateral retroperitoneal edema extending from the lower pole of both kidneys into the pelvis presacral region. Clinical significance is not clear. MRI shoulder L with and without: Is reported as there is evidence for full- thickness tear of the supraspinatus tendon at the greater tuberosity humerus. No retraction. No significant subacromial impingement. No evidence of any significant joint effusion. There is muscle enhancement involving the supraspinatus and infraspinatus and teres minor consistent with some nonspecific myositis. CT chest w/ and w/o: Bilateral basilar linear infiltrates and atelectasis which appear slightly increased compared to yesterday. No suspicious pulmonary mass. Normal heart. 2D echo: As reported as left ventricular size is normal. Moderate concentric left ventricle hypertrophy. Ejection fraction of 55-60%. - Labs CBC & Chem 7: 10/09/21 07:15 10/09/21 07:15 Labs: Abnormal Lab Results - Last 24 Hours (Table) 10/07/21 10/08/21 10/08/21 Range/Units 15:58 07:50 20:32 Hct (39.0-53.0) % Plt Count (150-450) k/uL Lymphocytes # (1.0-4.8) k/uL Sodium (137-145) mmol/L Creatinine (0.66-1.25) mg/dL Glucose (74-99) mg/dL POC Glucose (mg/dL) 256 H (75-99) mg/dL Calcium (8.4-10.2) mg/dL Delta Bilirubin (0.0-0.2) mg/dL AST (17-59) U/L ALT (4-49) U/L Creatine Kinase (55-170) U/L Total Protein (6.3-8.2) g/dL Albumin (3.5-5.0) g/dL Aldolase 49.3 H (1.2-7.6) U/L EBV Capsid Ag IgG Intrp POSITIVE A (NEGATIVE) EBV Nuc Ag IgG Interp POSITIVE A (NEGATIVE) 10/09/21 10/09/21 10/09/21 Range/Units 06:26 07:15 07:15 Hct 38.9 L (39.0-53.0) % Plt Count 135 L (150-450) k/uL Lymphocytes # 0.7 L (1.0-4.8) k/uL Sodium 131 L (137-145) mmol/L Creatinine 0.41 L (0.66-1.25) mg/dL Glucose 142 H (74-99) mg/dL POC Glucose (mg/dL) 163 H (75-99) mg/dL Calcium 7.4 L (8.4-10.2) mg/dL Delta Bilirubin 0.3 H (0.0-0.2) mg/dL AST 312 H (17-59) U/L ALT 123 H (4-49) U/L Creatine Kinase 7676 H* (55-170) U/L Total Protein 4.6 L (6.3-8.2) g/dL Albumin 2.2 L (3.5-5.0) g/dL Aldolase (1.2-7.6) U/L EBV Capsid Ag IgG Intrp (NEGATIVE) EBV Nuc Ag IgG Interp (NEGATIVE) 10/09/21 10/09/21 Range/Units 11:36 16:41 Hct (39.0-53.0) % Plt Count (150-450) k/uL Lymphocytes # (1.0-4.8) k/uL Sodium (137-145) mmol/L Creatinine (0.66-1.25) mg/dL Glucose (74-99) mg/dL POC Glucose (mg/dL) 242 H 243 H (75-99) mg/dL Calcium (8.4-10.2) mg/dL Delta Bilirubin (0.0-0.2) mg/dL AST (17-59) U/L ALT (4-49) U/L Creatine Kinase (55-170) U/L Total Protein (6.3-8.2) g/dL Albumin (3.5-5.0) g/dL Aldolase (1.2-7.6) U/L EBV Capsid Ag IgG Intrp (NEGATIVE) EBV Nuc Ag IgG Interp (NEGATIVE) Assessment and Plan Assessment: * Predominately proximal extremity weakness with pain, skin rash over right chest, face, significant elevated CK levels, ESR: Appears 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 * CT of the abdomen and pelvis is reported as bilateral retroperitoneal edema extending from the lower pole of both kidneys into the pelvis presacral region. Recommend ruling out any mass. * Moderate hepatopathy (presented with ASA 406 and ALT 144 on initial presentation)---slight trending down * Full-thickness tear of the supraspinatus tendon at the greater tuberosity humerus on MRI * Elevated sugar and seem due to Steroid use with history of borderline DM (was as high as 400 and only had 3 days of steroids then was discontinued by his PCP since sugars were in 400's) * Acute rhabdoymolysis likely due to myopathy/myositis * Acute mild to moderate hyponatremia * Uncontrolled DM (recent HbA1c 10.0 and was Borderline DM. Last HbA1c: 6.3 on 08/2020). * Dyslipidemia Plan: * Started the patient on Prednisone 60mg daily. Started on IV protonix 40mg daily. Recommend close sugar monitoring and will defer that to the primary team. * Could not obtain MRI thigh or arm since unavialble with this MRI machine according to shuttle car operator. * Ordered ionized calcium and repeat CK levels. * Please avoid any statins at this time. * Recommend EMG with NCS of upper and lower extremity as Outpatient [facility] (it is difficulty to get EMG with NCS at different facilities as inpatient). * Every 4 neuro checks * Full-thickness tear of the supraspinatus tendon at the greater tuberosity humerus on MRI: Primary team consulted Orthopetic team. * Regarding reported as bilateral retroperitoneal edema extending from the lower pole of both kidneys into the pelvis presacral region per CT abdomen/Plevis wi ll defer further management to the primary team. * Consulted Dr. Vaughan (general surgeon) for muscle biopsy. I personally spoke with him via phone early in the AM and he stated no availability today. This will likely be done Thursday (10/14/2021). * I will get rest of myositis panel (which is send-out) and will order them tomorrow to coordinate it. * If this is truly Dermatomyositis recommend ruling out malignancy. * Pulmonary team is on board. I believe patient Short of breath is related to his myopathy/myositis. * Infection disease is consulted by primary team for possible viral infection. * Consulted Rheumatology team but I was notified they are not available and will be back in service within 2 weeks. * Physical therapy and occupation therapy * Will defer the rest of medical management to the primary team. The plan is discussed with the patient, his mother who is at bedside and his nurse in detailed. Trino Feldman MD Neuro-Hospitalist Time with Patient: Less than 30
[2021-10-09 20:26] LABS: Glucose,Whole Blood 211 mg/dL (75-99)
--- NOTE | 2021-10-09 23:21 | PN ---
PROGRESS NOTE DATE OF SERVICE: 10/09/2021 REASON FOR FOLLOWUP: Possible viral syndrome. INTERVAL HISTORY: The patient is afebrile. The patient is breathing comfortably. Still complaining of pain to the muscle area, mostly upper thigh area. The patient denies having any chest pain or shortness of breath or cough. No nausea, vomiting, abdominal pain or diarrhea. PHYSICAL EXAMINATION: Blood pressure 129/78 with a pulse of 102, temperature 97.6. He is 94% on room air. General description is a middle-aged male lying in bed in no distress. Respiratory system: Unlabored breathing. Clear to auscultation anteriorly. Heart S1, S2. Regular rate and rhythm. Abdomen soft, no tenderness. Extremities with no edema of the feet, no redness. LABS: Creatinine 0.41, white count normal at 5.0. Did have elevated CK, which actually is trending down. DIAGNOSTIC IMPRESSION AND PLAN: Patient admitted to hospital with muscle aches and pains in this patient with evidence of significant myositis with elevated CK, which is trending down, question of viral etiology. So far serology has been negative for more of a chronic infection. Hepatitis panel is negative as well as HIV. Will monitor the patient closely off antibiotic therapy continue with supportive care. MMODL / IJN: [id number] /
[2021-10-10] MEDS: HYDROcodone/APAP 5-325MG 1 EACH TAB PO PRN ×3 (00:35→21:14)
[2021-10-10] MEDS: SODIUM CHLORIDE 0.9% 1,000 ML IV SCH ×3 (00:38→16:18)
[2021-10-10 06:11] LABS: Glucose,Whole Blood 202 mg/dL (75-99)
[2021-10-10] MEDS: PANTOPRAZOLE 40 MG TABLET PO SCH (06:41)
[2021-10-10] MEDS: INSULIN ASPART (NovoLOG) 100 UNIT/ML VIAL SQ SCH ×4 (06:41→21:14)
--- NOTE | 2021-10-10 07:32 | P.PN ---
Subjective Progress Note Date: 10/10/21 James Reyes, is a year old male who presented to [facility] emergency room with a chief complaint of generalized body ache, cough and shortness of breath, symptoms started 10 days prior to this admission, patient had 3 visits to emergency room due to similar symptoms, he was tested for COVID- 19, influenza A and B, and RSV virus, all these tests were negative, patient condition continued to worsen, patient developed worsening generalized muscle weakness and pain in bilateral hips and shoulder area , during this presentation he had evidence of rhabdomyolysis was elevated creatinine kinase at 11,556 LDH was elevated at 1887, AST 406, ALT 144, d-dimer was also elevated at 0.83, chest x-ray revealed mild bilateral atelectasis, computed tomography scan of the chest did not reveal evidence of pulmonary embolism, computed tomography scan of the abdomen and pelvis revealed fluid collection in the retroperitoneal area, otherwise no significant abnormality, patient was admitted to medical floor for further evaluation and treatment, pulmonary consultation was requested, neurology consultation was requested for 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 Patient denies any significant past medical history, he stated that he was vaccinated for COVID-19 he received the Moderna vaccine in December and January of this year, there is no history of smoking, he drinks alcohol rarely, he stated that he had 3 alcoholic drinks on September 05 and had no alcoholic drinks since then. On 10/08/2021 patient was seen and examined on the telemetry floor he is alert and oriented 3 in no apparent distress he denies any chest pain or shortness of breath there is no fever or chills no dizziness he is complaining of muscle aches and severe weakness, otherwise he denies any complaints at this time. Patient has evidence of rhabdomyolysis and CPK is higher today than yesterday at 12,810, liver enzymes AST and ALT are elevated at 336 and 112 respectively, which is mildly lower than yesterday, C-reactive protein is elevated at 5.9, influenza A and B are negative, rheumatoid factor and LISETTE screen are all negative, hepatitis B screen is negative however Zenia-Lowe virus capsid Ag IgG is positive. At this time neurology pulmonary and infectious disease are following, patient was started on prednisone 60 mg by mouth daily by neurology. MRI of the left shoulder revealed evidence of full thickness tear of the supraspinatus tendon, orthopedic consultation was requested. On 10/09/2021atient is alert and oriented 3. CK down to 7676. Patient re adelaida on steroids. Patient reports minimum improvement while on steroids. Patient maintained on prednisone 60 mg daily. Infectious disease neurology pulmonary and orthopedic services are following. No further workup inpatient per orthopedic services. Patient denies chest pain. Patient denies shortness breath. Patient denies nausea vomiting or diarrhea. Patient denies any urinary burning or frequency On 10/10/2021 patient was seen and examined on the telemetry floor, he is alert and oriented 3 in no apparent distress he is complaining mostly of left shoulder pain, and generalized weakness, he stated that pain in his hips has improved, patient is able to stand and walk to the bathroom and back on his own, there is no fever or chills no headache or dizziness no chest pain no shortness of breath no cough no nausea or vomiting no abdominal pain no diarrhea no blood in the stools no burning with urination no frequency or urgency and no hematuria Objective - Vital Signs Vital signs: Vital Signs Temp 97.7 F 10/10/21 04:00 Pulse 96 10/10/21 04:00 Resp 16 10/10/21 04:00 BP 132/68 10/10/21 04:00 Pulse Ox 94 L 10/10/21 04:00 Intake & Output 10/09/21 10/09/21 10/10/21 06:59 18:59 06:59 Intake Total 478 Balance 478 Intake: Oral 478 Other: Voiding Method Toilet Toilet Urinal Urinal # Voids 1 3 2 - Exam In general patient is alert and oriented x 3 in no distress HEENT head normocephalic and atraumatic Neck is supple no JVD no goiter no lymphadenopathy no carotid bruit Chest examination is clear to auscultation no crackles no wheezing Cardiac exam reveals regular heart sounds S1 and S2 no gallops no murmurs Abdomen is soft nontender no organomegaly with normal bowel sounds Extremity exam reveals no edema no cyanosis or clubbing Neurological examination reveals generalized muscle weakness, without any focal deficit - Labs CBC & Chem 7: 10/09/21 07:15 10/09/21 07:15 Labs: Abnormal Lab Results - Last 24 Hours (Table) 10/07/21 10/09/21 10/09/21 Range/Units 15:58 06:26 07:15 Hct (39.0-53.0) % Plt Count (150-450) k/uL Lymphocytes # (1.0-4.8) k/uL Sodium 131 L (137-145) mmol/L Creatinine 0.41 L (0.66-1.25) mg/dL Glucose 142 H (74-99) mg/dL POC Glucose (mg/dL) 163 H (75-99) mg/dL Calcium 7.4 L (8.4-10.2) mg/dL Delta Bilirubin 0.3 H (0.0-0.2) mg/dL AST 312 H (17-59) U/L ALT 123 H (4-49) U/L Creatine Kinase 7676 H* (55-170) U/L Total Protein 4.6 L (6.3-8.2) g/dL Albumin 2.2 L (3.5-5.0) g/dL Aldolase 49.3 H (1.2-7.6) U/L 10/09/21 10/09/21 10/09/21 Range/Units 07:15 11:36 16:41 Hct 38.9 L (39.0-53.0) % Plt Count 135 L (150-450) k/uL Lymphocytes # 0.7 L (1.0-4.8) k/uL Sodium (137-145) mmol/L Creatinine (0.66-1.25) mg/dL Glucose (74-99) mg/dL POC Glucose (mg/dL) 242 H 243 H (75-99) mg/dL Calcium (8.4-10.2) mg/dL Delta Bilirubin (0.0-0.2) mg/dL AST (17-59) U/L ALT (4-49) U/L Creatine Kinase (55-170) U/L Total Protein (6.3-8.2) g/dL Albumin (3.5-5.0) g/dL Aldolase (1.2-7.6) U/L 10/09/21 10/10/21 Range/Units 20:24 06:09 Hct (39.0-53.0) % Plt Count (150-450) k/uL Lymphocytes # (1.0-4.8) k/uL Sodium (137-145) mmol/L Creatinine (0.66-1.25) mg/dL Glucose (74-99) mg/dL POC Glucose (mg/dL) 211 H 202 H (75-99) mg/dL Calcium (8.4-10.2) mg/dL Delta Bilirubin (0.0-0.2) mg/dL AST (17-59) U/L ALT (4-49) U/L Creatine Kinase (55-170) U/L Total Protein (6.3-8.2) g/dL Albumin (3.5-5.0) g/dL Aldolase (1.2-7.6) U/L Assessment and Plan Plan: Upper respiratory infection likely viral, with sore throat, cough and shortness of breath Rhabdomyolysis, with elevated creatinine kinase at 11,556. 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
[2021-10-10 08:11] LABS: Basophils % (A) 0 %; Eosinophils # (A) 0.1 k/uL (0-0.7); Eosinophils % (A) 1 %; HCT 42.7 % (39.0-53.0); HGB 14.4 gm/dL (13.0-17.5); Lymphocytes # (A) 1.3 k/uL (1.0-4.8); Lymphocytes % (A) 15 %; MCH 29.5 pg (25.0-35.0); MCHC 33.8 g/dL (31.0-37.0); MCV 87.3 fL (80.0-100.0); Mean Platelet Volume 8.5; Monocytes # (A) 0.6 k/uL (0-1.0); Monocytes % (A) 7 %; Neutrophils # (A) 6.6 k/uL (1.3-7.7); Neutrophils % (A) 76 %; Platelet Count 232 k/uL (150-450); RBC 4.89 m/uL (4.30-5.90); RDW 13.6 % (11.5-15.5); WBC 8.6 k/uL (3.8-10.6)
[2021-10-10 08:26] LABS: ALT 131 U/L (4-49); AST 375 U/L (17-59); African American GFR (CKD) >90 (>60 ml/min/1.73 sqM); Albumin 2.6 g/dL (3.5-5.0); Alkaline Phosphatase 61 U/L (38-126); Anion Gap 8 mmol/L; Blood Urea Nitrogen 10 mg/dL (9-20); Calcium 7.8 mg/dL (8.4-10.2); Carbon Dioxide 21 mmol/L (22-30); Chloride 103 mmol/L (98-107); Glucose 172 mg/dL (74-99); Non-African American GFR(CKD) >90 (>60 ml/min/1.73 sqM); Sodium 132 mmol/L (137-145); Total Bilirubin 0.7 mg/dL (0.2-1.3); Total Protein 5.4 g/dL (6.3-8.2)
[2021-10-10] MEDS: predniSONE 20 MG TAB PO SCH (08:48)
[2021-10-10] MEDS: ENOXAPARIN 40 MG/0.4 ML SYRINGE SQ SCH (08:48)
--- NOTE | 2021-10-10 10:22 | P.GSCN ---
<Lelia Love - Last Filed: 10/10/21 10:00> History of Present Illness Consult date: 10/10/21 Requesting physician: Trino Feldman History of present illness: CHIEF COMPLAINT: Extremity pain, weakness HISTORY OF PRESENT ILLNESS: This is a 45-year-old male patient with no significant past medical history who presented to the emergency department with complaints of generalized weakness with pain to bilateral upper extremities left greater than right especially in the shoulder as well as bilateral thighs. Patient states thigh pain in the right is greater than the left. Neurology services on consult and has asked general surgery to see the patient regarding muscle biopsies. He states he is able to get up and walk however he does need assistance with getting his legs up and over to the side of the bed due to pain not as much as weakness. He is able to use bilateral upper extremities and is able to hold objects however states left shoulder pain is greater and difficult to lift his arm. The patient is also complaining of shortness of breath especially with exertion. Pulmonology is on consult and following patient closely. He did have an MRI of the shoulder that did show a left torn rotator cuff. Orthopedics was consulted and no plans for any surgical intervention at this time. The patient states he's not had any previous illness prior to the symptoms which began approximately 3 weeks ago. He was treated and sent home from the emergency department and had follow-up with his primary care physician is well. Had a short dose of steroids with no improvement. He has COVID-19 vaccinated last vaccine in January 2021. He denies any family history of autoimmune disease. On admission labs were consistent with rhabdomyolysis, thrombocytopenia, with elevated inflammatory markers. Patient also had elevation in his LFTs on admission total bilirubin 0.9 ;AST 406 ALT 144Alk phos 61. PAST MEDICAL HISTORY: Recent diagnosis of diabetes mellitus PAST SURGICAL HISTORY: Hernia repair, sinus surgery MEDICATIONS: See list. ALLERGIES: See list. SOCIAL HISTORY: No illicit drug use. Nonsmoker. REVIEW OF SYSTEMS: CONSTITUTIONAL: Denies fever or chills. Generalized weakness. HEENT: Denies blurred vision, vision changes, or eye pain. Denies hemoptysis CARDIOVASCULAR: Denies chest pain or pressure. RESPIRATORY: Shortness of breath, especially with exertion. GASTROINTESTINAL: No abdominal pain, nausea, or vomiting. MUSCULOSKELETAL: Bilateral upper extremity pain, especially in shoulders, left greater than right. Bilateral thigh pain, right greater than left. HEMATOLOGIC: Denies bleeding disorders. GENITOURINARY: Denies any blood in urine or increased urinary frequency. SKIN: Denies pruitis. Denies rash. PHYSICAL EXAM: VITAL SIGNS: Reviewed GENERAL: Well-developed in no acute distress. HEENT: No sclera icterus. Extraocular movements grossly intact. Moist buccal mucosa. Head is atraumatic, normocephalic. No nasal drainage. ABDOMEN: Soft. Obese. Nondistended. Nontender. EXTREMITIES: Bilateral hand grasp equal. Bilateral upper extremities with good tone. Decreased range of motion due to pain. Good strength and tone in bilateral lower extremities. However patient is limited to range of motion due to pain. NEUROLOGIC: Alert and oriented. Cranial nerves II through XII grossly intact. LABORATORY DATA: WBC 8.6 hemoglobin 14.4 platelet count 232,000 sodium 132 potassium 4.0 BUN 10 creatinine 0.5 glucose 172 total bilirubin 0.7 AST 375 ALT 131 alkaline phosphatase 61 creatinine kidney is 7984 LISETTE negative rheumatoid factor negative CMV nonreactive EBV IgG positive hepatitis acute panel nonreactive Bey virus PCR not detected, influenza a and B not detected HIV nonreactive IMAGING: CT of the abdomen and pelvis shows bilateral retroperitoneal edema extending from the lower pole of both kidneys into the pelvis and presacral region. Clinical significance is not clear. There is some mild subsegmental atelectasis at the lung bases. Chest CTA shows no evidence of pulmonary embolism. Mild bilateral basilar subsegmental atelectasis. Shoulder MRI shows evidence for full-thickness tear of the supra spinatus tendon at the greater tuberosity humerus. No retraction. No significant subacromial impingement. No evidence of significant joint effusion. There is muscle enhancement involving supraspinatus and infraspinatus and teres minor consistent with some nonspecific myositis Shows bilateral basilar linear infiltrates and atelectasis which appears slightly increased compared to yesterday. No suspicious pulmonary mass. Normal heart. ASSESSMENT: 1. Bilateral upper extremity and lower extremity pain and weakness 2. Generalized weakness 3. Shortness of breath 4. Rhabdomyolysis 5. Left full-thickness tear of the supra spinatus tendon at the greater tuberosity humerus on MRI 6. Recent diagnosis of diabetes mellitus PLAN: 1. Continue symptomatic and supportive care 2. The tentative plan is for right thigh, left shoulder, left forearm muscle biopsy early next week 3. Continue with recommendations from neurology and primary medicine The impression and plan of care has been dictated as directed. Dr. Vaughan I performed a history and examination of this patient, discussed the same with the dictator. I agree with the dictator's note ,documented as a scribe. Any additional findings or plans will be noted.. Past Medical History Past Medical History: No Reported History History of Any Multi-Drug Resistant Organisms: None Reported Past Surgical History: Hernia Repair Additional Past Surgical History / Comment(s): sinus surgery Past Anesthesia/Blood Transfusion Reactions: No Reported Reaction Past Psychological History: No Psychological Hx Reported Additional Psychological History / Comment(s): Pt resides with his spouse and children. He is independent. He drives. Smoking Status: Never smoker Past Alcohol Use History: Rare Past Drug Use History: None Reported - Past Family History Father Family Medical History: Congestive Heart Failure (CHF) Additional Family Medical History / Comment(s): Father is 65 yrs old. Mother Family Medical History: No Reported History Additional Family Medical History / Comment(s): Mother is 63 yrs old. Medications and Allergies Home Medications Medication Instructions Recorded Confirmed Type Nystatin [Nystatin Oral Susp] 6 ml PO QID 10 Days #250 ml 10/03/21 10/06/21 Rx Allergies Allergy/AdvReac Type Severity Reaction Status Date / Time No Known Allergies Allergy Verified 10/06/21 15:19 Surgical - Exam Vital Signs Temp Pulse Resp BP Pulse Ox 97.9 F 121 H 20 131/81 98 10/06/21 13:24 10/06/21 13:24 10/06/21 13:24 10/06/21 13:24 10/06/21 13:24 Results - Labs 10/10/21 07:45 10/10/21 07:45 Abnormal Lab Results - Last 24 Hours (Table) 10/09/21 10/09/21 10/09/21 Range/Units 11:36 16:41 20:24 Sodium (137-145) mmol/L Carbon Dioxide (22-30) mmol/L Creatinine (0.66-1.25) mg/dL Glucose (74-99) mg/dL POC Glucose (mg/dL) 242 H 243 H 211 H (75-99) mg/dL Calcium (8.4-10.2) mg/dL AST (17-59) U/L ALT (4-49) U/L Total Protein (6.3-8.2) g/dL Albumin (3.5-5.0) g/dL 10/10/21 10/10/21 Range/Units 06:09 07:45 Sodium 132 L (137-145) mmol/L Carbon Dioxide 21 L (22-30) mmol/L Creatinine 0.51 L (0.66-1.25) mg/dL Glucose 172 H (74-99) mg/dL POC Glucose (mg/dL) 202 H (75-99) mg/dL Calcium 7.8 L (8.4-10.2) mg/dL AST 375 H (17-59) U/L ALT 131 H (4-49) U/L Total Protein 5.4 L (6.3-8.2) g/dL Albumin 2.6 L (3.5-5.0) g/dL Diabetes panel 10/10/21 Range/Units 07:45 Sodium 132 L (137-145) mmol/L Potassium 4.0 (3.5-5.1) mmol/L Chloride 103 (98-107) mmol/L Carbon Dioxide 21 L (22-30) mmol/L BUN 10 (9-20) mg/dL Creatinine 0.51 L (0.66-1.25) mg/dL Glucose 172 H (74-99) mg/dL Calcium 7.8 L (8.4-10.2) mg/dL AST 375 H (17-59) U/L ALT 131 H (4-49) U/L Alkaline Phosphatase 61 (38-126) U/L Total Protein 5.4 L (6.3-8.2) g/dL Albumin 2.6 L (3.5-5.0) g/dL Calcium panel 10/10/21 Range/Units 07:45 Calcium 7.8 L (8.4-10.2) mg/dL Albumin 2.6 L (3.5-5.0) g/dL Pituitary panel 10/10/21 Range/Units 07:45 Sodium 132 L (137-145) mmol/L Potassium 4.0 (3.5-5.1) mmol/L Chloride 103 (98-107) mmol/L Carbon Dioxide 21 L (22-30) mmol/L BUN 10 (9-20) mg/dL Creatinine 0.51 L (0.66-1.25) mg/dL Glucose 172 H (74-99) mg/dL Calcium 7.8 L (8.4-10.2) mg/dL Adrenal panel 10/10/21 Range/Units 07:45 Sodium 132 L (137-145) mmol/L Potassium 4.0 (3.5-5.1) mmol/L Chloride 103 (98-107) mmol/L Carbon Dioxide 21 L (22-30) mmol/L BUN 10 (9-20) mg/dL Creatinine 0.51 L (0.66-1.25) mg/dL Glucose 172 H (74-99) mg/dL Calcium 7.8 L (8.4-10.2) mg/dL Total Bilirubin 0.7 (0.2-1.3) mg/dL AST 375 H (17-59) U/L ALT 131 H (4-49) U/L Alkaline Phosphatase 61 (38-126) U/L Total Protein 5.4 L (6.3-8.2) g/dL Albumin 2.6 L (3.5-5.0) g/dL <James Vaughan - Last Filed: 10/10/21 18:03> History of Present Illness History of present illness: As above. Patient with bilateral upper and lower extremity weakness. CPK significantly elevated. We were consulted for muscle biopsy. Logistically I do not believe that we are able to send out a muscle biopsy unless we have a 2 to three-day work window available at the tertiary care center. We'll clarify with pathology. Will see again tomorrow morning. Surgical - Exam Vital Signs Temp Pulse Resp BP Pulse Ox 97.9 F 121 H 20 131/81 98 10/06/21 13:24 10/06/21 13:24 10/06/21 13:24 10/06/21 13:24 10/06/21 13:24 Results - Labs 10/10/21 07:45 10/10/21 07:45 Abnormal Lab Results - Last 24 Hours (Table) 10/09/21 10/10/21 10/10/21 Range/Units 20:24 06:09 07:45 ESR (0-15) mm/hr Sodium 132 L (137-145) mmol/L Carbon Dioxide 21 L (22-30) mmol/L Creatinine 0.51 L (0.66-1.25) mg/dL Glucose 172 H (74-99) mg/dL POC Glucose (mg/dL) 211 H 202 H (75-99) mg/dL Calcium 7.8 L (8.4-10.2) mg/dL AST 375 H (17-59) U/L ALT 131 H (4-49) U/L Creatine Kinase (55-170) U/L Total Protein 5.4 L (6.3-8.2) g/dL Albumin 2.6 L (3.5-5.0) g/dL 10/10/21 10/10/21 10/10/21 Range/Units 07:45 07:45 11:34 ESR 58 H (0-15) mm/hr Sodium (137-145) mmol/L Carbon Dioxide (22-30) mmol/L Creatinine (0.66-1.25) mg/dL Glucose (74-99) mg/dL POC Glucose (mg/dL) 182 H (75-99) mg/dL Calcium (8.4-10.2) mg/dL AST (17-59) U/L ALT (4-49) U/L Creatine Kinase 7984 H* (55-170) U/L Total Protein (6.3-8.2) g/dL Albumin (3.5-5.0) g/dL 10/10/21 Range/Units 16:55 ESR (0-15) mm/hr Sodium (137-145) mmol/L Carbon Dioxide (22-30) mmol/L Creatinine (0.66-1.25) mg/dL Glucose (74-99) mg/dL POC Glucose (mg/dL) 240 H (75-99) mg/dL Calcium (8.4-10.2) mg/dL AST (17-59) U/L ALT (4-49) U/L Creatine Kinase (55-170) U/L Total Protein (6.3-8.2) g/dL Albumin (3.5-5.0) g/dL Diabetes panel 10/10/21 Range/Units 07:45 Sodium 132 L (137-145) mmol/L Potassium 4.0 (3.5-5.1) mmol/L Chloride 103 (98-107) mmol/L Carbon Dioxide 21 L (22-30) mmol/L BUN 10 (9-20) mg/dL Creatinine 0.51 L (0.66-1.25) mg/dL Glucose 172 H (74-99) mg/dL Calcium 7.8 L (8.4-10.2) mg/dL AST 375 H (17-59) U/L ALT 131 H (4-49) U/L Alkaline Phosphatase 61 (38-126) U/L Total Protein 5.4 L (6.3-8.2) g/dL Albumin 2.6 L (3.5-5.0) g/dL Calcium panel 10/10/21 Range/Units 07:45 Calcium 7.8 L (8.4-10.2) mg/dL Albumin 2.6 L (3.5-5.0) g/dL Pituitary panel 10/10/21 Range/Units 07:45 Sodium 132 L (137-145) mmol/L Potassium 4.0 (3.5-5.1) mmol/L Chloride 103 (98-107) mmol/L Carbon Dioxide 21 L (22-30) mmol/L BUN 10 (9-20) mg/dL Creatinine 0.51 L (0.66-1.25) mg/dL Glucose 172 H (74-99) mg/dL Calcium 7.8 L (8.4-10.2) mg/dL Adrenal panel 10/10/21 Range/Units 07:45 Sodium 132 L (137-145) mmol/L Potassium 4.0 (3.5-5.1) mmol/L Chloride 103 (98-107) mmol/L Carbon Dioxide 21 L (22-30) mmol/L BUN 10 (9-20) mg/dL Creatinine 0.51 L (0.66-1.25) mg/dL Glucose 172 H (74-99) mg/dL Calcium 7.8 L (8.4-10.2) mg/dL Total Bilirubin 0.7 (0.2-1.3) mg/dL AST 375 H (17-59) U/L ALT 131 H (4-49) U/L Alkaline Phosphatase 61 (38-126) U/L Total Protein 5.4 L (6.3-8.2) g/dL Albumin 2.6 L (3.5-5.0) g/dL
--- NOTE | 2021-10-10 10:58 | P.PN ---
Subjective Progress Note Date: 10/10/21 The patient is seen at bedside and feels he is doing better in the last two days compared to initial presentation. Objective - Vital Signs Vital signs: Vital Signs Temp 97.7 F 10/10/21 04:00 Pulse 96 10/10/21 04:00 Resp 16 10/10/21 04:00 BP 132/68 10/10/21 04:00 Pulse Ox 94 L 10/10/21 04:00 Intake & Output 10/09/21 10/10/21 10/10/21 18:59 06:59 18:59 Intake Total 478 Balance 478 Intake: Oral 478 Other: Voiding Method Toilet Urinal # Voids 3 2 - Exam GENERAL: The patient is lying in bed and is moderate to severe acute distress. INTEGUMENARY: There is a rash erythematous rash over the face and it over the nose, and medial side of nasal side of face to medial cheeks bilaterally and eyebrows. Also erythematous rash over the right upper anterior chest. NEUROLOGICAL: Higher mental function: The patient is awake, alert, oriented to self, place and time. Patient is following commands. No aphasia and no neglect. Cranial nerves: The pupils are round, equal and reactive to light and accommodation. Visual english are full to confrontation throughout. Extraocular movement is intact no nystagmus is noted. Facial sensation is normal to touch throughout. The facial strength is normal throughout. Hearing is normal bilaterally to hand rub. Tongue is midline and moved [id number] without any difficulty. No dysarthria is noted. Shoulder shrug is normal bilaterally. Motor: Gait is deferred because of his weakness and pain. The strength is limited because of pain but over the bilateral hip flexion is 4- bilaterally. Bilateral hand processing assistant are 4+ bilaterally while bilateral ankles are 5/5. Hard to assess left upper extremity because of significant pain and has tear over left shoulder Minimal decrease tone but hard to assess because of his pain. Normal bulk. Cerebellum: Normal finger to nose over the right but hard to assess over the left because of pain. Sensation: Sensation is normal to touch and pinprick throughout. Reflexes (right/left): bilateral biceps are 0, patellar are 0 otherwise 1+. Plantars are mute bilaterally. WORK-UP: CK level is 11,556-->[place] [address]-->7676 ESR: 60 CRP is 4.4. Lactate Dehydrogenase is 1887. TSH: 2.580 AST of 406 and ALT of 144. Repeat 336 and ALT 112. Ammonia: <9. Magnesium 1.8 Ionized Calcium 4.6 (low normal). Vitamin B12: 742 Serum Folate: 14.30 Calcium is 7.0 Hemoglobin A1c: 10.0 (prior was 6.3 on 09/17/2021) RF: <10 HCV RNA not detected HIV 1/2 abs non-reactive. HIV 24 ab non-reactive LISETTE is negative Anti-DNA ab is negative Reba-1 Abs negative SSA and SSB Abs is negative Hep Bs Ab nonreactive Urinalysis is negative for urinary tract infection but has L4 positive for ketones and 4 positive for glucose. Bey virus is nondetected. Influenza A and RNA/POCR (respectively) are as nondetected CT of the abdomen and pelvis root is reported as bilateral retroperitoneal edema extending from the lower pole of both kidneys into the pelvis presacral region. Clinical significance is not clear. MRI shoulder L with and without: Is reported as there is evidence for full- thickness tear of the supraspinatus tendon at the greater tuberosity humerus. No retraction. No significant subacromial impingement. No evidence of any significant joint effusion. There is muscle enhancement involving the supraspinatus and infraspinatus and teres minor consistent with some nonspecific myositis. CT chest w/ and w/o: Bilateral basilar linear infiltrates and atelectasis which appear slightly increased compared to yesterday. No suspicious pulmonary mass. Normal heart. 2D echo: As reported as left ventricular size is normal. Moderate concentric left ventricle hypertrophy. Ejection fraction of 55-60%. - Labs CBC & Chem 7: 10/10/21 07:45 10/10/21 07:45 Labs: Abnormal Lab Results - Last 24 Hours (Table) 10/09/21 10/09/21 10/09/21 Range/Units 07:15 11:36 16:41 Sodium 131 L (137-145) mmol/L Carbon Dioxide (22-30) mmol/L Creatinine 0.41 L (0.66-1.25) mg/dL Glucose 142 H (74-99) mg/dL POC Glucose (mg/dL) 242 H 243 H (75-99) mg/dL Calcium 7.4 L (8.4-10.2) mg/dL Delta Bilirubin 0.3 H (0.0-0.2) mg/dL AST 312 H (17-59) U/L ALT 123 H (4-49) U/L Creatine Kinase 7676 H* (55-170) U/L Total Protein 4.6 L (6.3-8.2) g/dL Albumin 2.2 L (3.5-5.0) g/dL 10/09/21 10/10/21 10/10/21 Range/Units 20:24 06:09 07:45 Sodium 132 L (137-145) mmol/L Carbon Dioxide 21 L (22-30) mmol/L Creatinine 0.51 L (0.66-1.25) mg/dL Glucose 172 H (74-99) mg/dL POC Glucose (mg/dL) 211 H 202 H (75-99) mg/dL Calcium 7.8 L (8.4-10.2) mg/dL Delta Bilirubin (0.0-0.2) mg/dL AST 375 H (17-59) U/L ALT 131 H (4-49) U/L Creatine Kinase (55-170) U/L Total Protein 5.4 L (6.3-8.2) g/dL Albumin 2.6 L (3.5-5.0) g/dL Assessment and Plan Assessment: * Predominately proximal extremity weakness with pain, skin rash over right chest, face, significant elevated CK levels, ESR: Appears likely myositis (appears dermatomyositis)---noticing improvement on steroids * CT of the abdomen and pelvis is reported as bilateral retroperitoneal edema extending from the lower pole of both kidneys into the pelvis presacral region. Recommend ruling out any mass. * Moderate hepatopathy (presented with ASA 406 and ALT 144 on initial presentation)---slight trending down * Full-thickness tear of the supraspinatus tendon at the greater tuberosity humerus on MRI * Elevated sugar and seem due to Steroid use with history of borderline DM (was as high as 400 and only had 3 days of steroids then was discontinued by his PCP since sugars were in 400's) * Acute rhabdoymolysis likely due to myopathy/myositis * Acute mild to moderate hyponatremia * Uncontrolled DM (recent HbA1c 10.0 and was Borderline DM. Last HbA1c: 6.3 on 08/2020). * Dyslipidemia Plan: * Continue Prednisone 60mg daily. Started on IV protonix 40mg daily. Recommend close sugar monitoring and will defer that to the primary team. * Could not obtain MRI thigh or arm since unavialble with this MRI machine accor ding to mercury washer. * Ordered repeat CK and ESR level, ASHLEY level, ASHLEY abs, antiPM/SCL-100. * Ordered myositis panel (send out to [facility]) and I spoke with botany laboratory assistant to coordinate that. * Please avoid any statins at this time. * Recommend EMG with NCS of upper and lower extremity as Outpatient [facility] (it is difficulty to get EMG with NCS at different facilities as inpatient). * Every 4 neuro checks * Full-thickness tear of the supraspinatus tendon at the greater tuberosity humerus on MRI: Primary team consulted Orthopetic team. * Regarding reported as bilateral retroperitoneal edema extending from the lower pole of both kidneys into the pelvis presacral region per CT abdomen/Plevis will defer further management to the primary team. * Consulted Dr. Vaughan (general surgeon) for muscle biopsy. He stated likely be done Thursday (10/14/2021). * If this is truly Dermatomyositis recommend ruling out malignancy. * Started the patient on Vitamin D3 1000U daily. Recommend DEXA scan as outpatient. * Pulmonary team is on board. I believe patient Short of breath is related to his myopathy/myositis. * Infection disease is consulted by primary team for possible viral infection. * Consulted Rheumatology team but I was notified they are not available and will be back in service within 2 weeks. * Physical therapy and occupation therapy * Will defer the rest of medical management to the primary team. The plan is discussed with the patient and his nurse in detailed. Trino Feldman MD Neuro-Hospitalist Time with Patient: Less than 30
[2021-10-10 11:36] LABS: Glucose,Whole Blood 182 mg/dL (75-99)
[2021-10-10] MEDS: CHOLECALCIFEROL 25 MCG (1000 IU) TABLET PO SCH (12:14)
[2021-10-10 16:57] LABS: Glucose,Whole Blood 240 mg/dL (75-99)
--- NOTE | 2021-10-10 19:47 | P.CONS ---
History of Present Illness - Reason for Consult Consult date: 10/10/21 Rhabdomyolysis, concern for malignancy - History of Present Illness Patient is a 45-year-old white male with overall well controlled medical problems. He actually did not have any known diagnosis of ongoing chronic medic al problems at the time of admission. The patient was admitted on 10/07/21 after presented to the ER complaining of marked muscle pain and weakness especially in the proximal lower extremities. About 10 days prior to that he had had a cough with mild sore throat. He then developed significant pain in his proximal lower extremities especially in the thighs to where it was difficult to bear weight or raise his legs when he was lying flat on his back. He subsequently also had similar symptoms affecting his shoulders and upper arms but these were less mild. He was seen in the ER and tested negative for COVID, influenza and RSV. His respiratory symptoms actually did improve, but muscle pain and weakness he came worse leading him to come to the emergency room. Labs showed rhabdomyolysis. CPK in the 11,000 range. Patient also had elevation of AST and ALT, elevated sed rate, and aldolase. the patient has been evaluated by multiple consultants. He has had extensive labs for autoimmune serologies an infection which have been negative so far. Imaging studies have included CT, as well as CT of the abdomen and pelvis, chest x-ray which were also negative other than showing some nonspecific fluid in the posterior abdomen and pelvis, not characteristic of bleeding. Echocardiogram was also normal. The patient's upper extremity symptoms did improve significantly, other than at the left shoulder. MRI was performed which showed the rotator cuff tear. There appeared to be some changes suggestive of nonspecific myositis in the visualized muscles The patient had also noted a reddish confluent rash, comparatively minor, on his upper chest and possibly on the malar area. This is actually fading. He was evaluated by neurology, and felt to have possible dermatomyositis. Oncology consult was placed to rule out underlying malignancy as a possible cause The patient denies any prior history of malignancy. He has no history of malignancy in first-degree relatives. He states that her maternal grandmother possibly had colon cancer, in her 60s. He himself has no suspicious systemic or localizing symptoms for malignancy. During this admission he has had CT of the chest abdomen and pelvis, which were negative for any lymphadenopathy or mass lesions or osseous abnormality. Echocardiogram was negative for any pericardial effusion. Patient's CBC initially showed mildly low platelet count, which then resolved. CBC today was normal with platelets in the 200 range. Chem panel abnormalities were essentially typical of rhabdomyolysis. Review of Systems Constitutional: Reports fatigue, Reports weakness Eyes: denies blurred vision, denies pain Ears: deny: decreased hearing, ear discharge, earache, tinnitus Ears, nose, mouth and throat: Denies headache, Denies sore throat Cardiovascular: Reports shortness of breath, Denies chest pain Respiratory: Reports cough, Reports dyspnea, Reports pain on inspiration Gastrointestinal: Denies abdominal pain, Denies diarrhea, Denies nausea, Denies vomiting Genitourinary: Reports as per HPI Musculoskeletal: Reports as per HPI, Reports muscle weakness, Reports myalgias Musculoskeletal: left: shoulder pain Integumentary: Reports as per HPI, Reports rash Neurological: Reports weakness Psychiatric: Denies anxiety, Denies depression Endocrine: Reports fatigue Hematologic/Lymphatic: Reports as per HPI Past Medical History Past Medical History: No Reported History History of Any Multi-Drug Resistant Organisms: None Reported Past Surgical History: Hernia Repair Additional Past Surgical History / Comment(s): sinus surgery Past Anesthesia/Blood Transfusion Reactions: No Reported Reaction Past Psychological History: No Psychological Hx Reported Additional Psychological History / Comment(s): Pt resides with his spouse and children. He is independent. He drives. Smoking Status: Never smoker Past Alcohol Use History: Rare Past Drug Use History: None Reported - Past Family History Father Family Medical History: Congestive Heart Failure (CHF) Additional Family Medical History / Comment(s): Father is 65 yrs old. Mother Family Medical History: No Reported History Additional Family Medical History / Comment(s): Mother is 63 yrs old. Medications and Allergies Home Medications Medication Instructions Recorded Confirmed Type Nystatin [Nystatin Oral Susp] 6 ml PO QID 10 Days #250 ml 10/03/21 10/06/21 Rx Allergies Allergy/AdvReac Type Severity Reaction Status Date / Time No Known Allergies Allergy Verified 10/06/21 15:19 Physical Exam Vitals: Vital Signs Temp Pulse Resp BP Pulse Ox 10/10/21 16:00 97.5 F L 99 18 127/84 94 L 10/10/21 12:25 95 10/10/21 12:00 95 18 157/90 94 L 10/10/21 08:00 97.6 F 98 16 122/74 95 10/10/21 04:00 97.7 F 96 16 132/68 94 L 10/10/21 00:00 97.9 F 89 16 117/74 96 10/09/21 20:00 97.6 F 102 H 16 129/78 94 L Intake and Output 10/10/21 10/10/21 10/10/21 06:59 14:59 22:59 Intake Total 1080 240 Balance 1080 240 Intake: Intake, IV Titration 600 Amount Sodium Chloride 0.9% 1, 600 000 ml @ 150 mls/hr IV . [facility] Rx#:[id number] Oral 480 240 Other: Voiding Method Toilet Urinal # Voids 2 Weight 111.2 kg - Constitutional General appearance: no acute distress - EENT Eyes: EOMI, PERRLA ENT: hearing grossly normal, normal oropharynx - Neck Neck: no lymphadenopathy Thyroid: bilateral: normal size - Respiratory Respiratory: bilateral: CTA - Cardiovascular Rhythm: regular Heart sounds: normal: S1, S2 - Gastrointestinal General gastrointestinal: normal bowel sounds, soft - Integumentary Integumentary: rash (Very faint light brownish red rash mostly right upper chest. No definite rash on malar areas is currently) - Musculoskeletal Significant tenderness muscles of proximal lower extremity especially anterio rly. Decreased strength proximal lower extremity muscles Mild tenderness on palpation on bilateral paraspinal muscles Mild tenderness on palpation around left shoulder joint. Decreased range of mo tion left shoulder joint. No significant tenderness currently in other upper extremity proximal muscle groups. Strength of the right upper extremity is normal proximally and distally. - Psychiatric Psychiatric: A&O x's 3, appropriate affect Results CBC & Chem 7: 10/10/21 07:45 10/10/21 07:45 Labs: Abnormal Lab Results - Last 24 Hours (Table) 10/09/21 10/10/21 10/10/21 Range/Units 20:24 06:09 07:45 ESR (0-15) mm/hr Sodium 132 L (137-145) mmol/L Carbon Dioxide 21 L (22-30) mmol/L Creatinine 0.51 L (0.66-1.25) mg/dL Glucose 172 H (74-99) mg/dL POC Glucose (mg/dL) 211 H 202 H (75-99) mg/dL Calcium 7.8 L (8.4-10.2) mg/dL AST 375 H (17-59) U/L ALT 131 H (4-49) U/L Creatine Kinase (55-170) U/L Total Protein 5.4 L (6.3-8.2) g/dL Albumin 2.6 L (3.5-5.0) g/dL 10/10/21 10/10/21 10/10/21 Range/Units 07:45 07:45 11:34 ESR 58 H (0-15) mm/hr Sodium (137-145) mmol/L Carbon Dioxide (22-30) mmol/L Creatinine (0.66-1.25) mg/dL Glucose (74-99) mg/dL POC Glucose (mg/dL) 182 H (75-99) mg/dL Calcium (8.4-10.2) mg/dL AST (17-59) U/L ALT (4-49) U/L Creatine Kinase 7984 H* (55-170) U/L Total Protein (6.3-8.2) g/dL Albumin (3.5-5.0) g/dL 10/10/21 Range/Units 16:55 ESR (0-15) mm/hr Sodium (137-145) mmol/L Carbon Dioxide (22-30) mmol/L Creatinine (0.66-1.25) mg/dL Glucose (74-99) mg/dL POC Glucose (mg/dL) 240 H (75-99) mg/dL Calcium (8.4-10.2) mg/dL AST (17-59) U/L ALT (4-49) U/L Creatine Kinase (55-170) U/L Total Protein (6.3-8.2) g/dL Albumin (3.5-5.0) g/dL Comments: Shoulder MRI report reviewed Echocardiogram report reviewed Chest x-ray: report reviewed CT scan - abdomen: report reviewed CT scan - chest: report reviewed CT scan - pelvis: report reviewed Assessment and Plan (1) Rhabdomyolysis Narrative/Plan: The patient is presenting with rhabdomyolysis. Consult was placed for oncology as he was felt to have possible dermatomyositis. Rhabdomyolysis is improving with treatment although he still has significant residual muscle weakness and pain. - Continue treatment for the admitting service and other consultants Current Visit: Yes Status: Acute Code(s): M62.82 - RHABDOMYOLYSIS SNOMED Code(s): 951167769 (2) Occult malignancy Narrative/Plan: The consult was placed due to concern for occult malignancy. The patient has actually had an extensive workup with CT of the chest abdomen and pelvis, as well as labs which have shown no evidence whatsoever of the same. He has no family history in first-degree relatives. He has no signs or symptoms which are suspicious for malignancy indicating need for any further workup at this time. - The concern was due to possibility of dermatomyositis. The patient was advised that the diagnosis is not definite. Patient's rash does not appear to be typical, and autoimmune workup was negative. Given his clinical history, viral syndrome followed by posterior viral myositis and abdomen assess actually appears to be more likely. Rheumatology has been consulted for further evaluation. - The patient was advised that even if he did have dermatomyositis, which can occur on its own, an due to etiologies other than malignancy. He was reassured that at this time there does not appear to be any evidence of underlying malignancy. - If the diagnosis of dermatomyositis is confirmed, it is known that some of these patients may present with malignancy later, sometimes with fairly long durations after the occurrence of the dermatomyositis. He was therefore advised to maintain good regular follow-up with his PCP, and stay current with her age- appropriate cancer workup as well be diligent about bringing any new, suspicious signs or symptoms to medical attention. - Patient had a mild thrombocytopenia that has resolved spontaneously. There fore this time there are no hematologic abnormalities to investigate further. Current Visit: Yes Status: Acute Code(s): C80.1 - MALIGNANT (PRIMARY) NEOPLASM, UNSPECIFIED SNOMED Code(s): 943270876
[2021-10-10 21:06] LABS: Glucose,Whole Blood 228 mg/dL (75-99)
--- NOTE | 2021-10-10 22:58 | PN ---
PROGRESS NOTE DATE OF SERVICE: 10/10/2021 REASON FOR FOLLOWUP: Possible viral syndrome. INTERVAL HISTORY: The patient is afebrile. The patient is breathing comfortably, seems to be feeling better. The patient denies having any chest pain, shortness of breath or cough. No abdominal pain or diarrhea. PHYSICAL EXAMINATION: Blood pressure 127/84, pulse of 99, temperature 97.5. He is 94% on room air. General description is a middle-aged male up in the room in no distress. Respiratory system: Unlabored breathing. Clear to auscultation anteriorly. Heart S1, S2. Regular rate and rhythm. Abdomen soft, no tenderness. Extremities with no edema of the feet. LABS: Hemoglobin is 14.4, white count 8.6, creatinine 0.51. CK is trending down. Most of the viral serology has been negative. DIAGNOSTIC IMPRESSION AND PLAN: Patient presented to hospital with significant pain to the lower extremity muscular area with elevated CK. viral serology has been negative. Scheduled for a muscle biopsy. Blood culture monitor the patient closely off antibiotic therapy. Continue supportive care. MMODL / IJN: [id number] /
[2021-10-11] MEDS: SODIUM CHLORIDE 0.9% 1,000 ML IV SCH ×4 (00:32→14:51)
[2021-10-11 06:16] LABS: Glucose,Whole Blood 113 mg/dL (75-99)
[2021-10-11] MEDS: INSULIN ASPART (NovoLOG) 100 UNIT/ML VIAL SQ SCH ×4 (06:31→22:04)
[2021-10-11] MEDS: PANTOPRAZOLE 40 MG TABLET PO SCH (06:32)
[2021-10-11] MEDS: CHOLECALCIFEROL 25 MCG (1000 IU) TABLET PO SCH (09:18)
[2021-10-11] MEDS: predniSONE 20 MG TAB PO SCH (09:18)
[2021-10-11] MEDS: ENOXAPARIN 40 MG/0.4 ML SYRINGE SQ SCH (09:18)
--- NOTE | 2021-10-11 09:18 | P.PN ---
Subjective Progress Note Date: 10/11/21 Principal diagnosis: Myositis Patient says he feels about the same as yesterday. Mild muscle aches. No nausea or vomiting. Tolerating diet. Objective - Vital Signs Vital signs: Vital Signs Temp 98.0 F 10/11/21 04:00 Pulse 96 10/11/21 04:00 Resp 18 10/11/21 04:00 BP 134/80 10/11/21 04:00 Pulse Ox 94 L 10/11/21 04:00 Intake & Output 10/10/21 10/11/21 10/11/21 18:59 06:59 18:59 Intake Total 1320 180 Balance 1320 180 Weight 111.2 kg Intake: Intake, IV Titration 600 Amount Sodium Chloride 0.9% 1, 600 000 ml @ 150 mls/hr IV . Q6H40M [facility] Rx#:[id number] Oral 720 180 Other: Voiding Method Toilet # Voids 1 - Exam Abdomen: Soft, nontender, nondistended - Labs CBC & Chem 7: 10/10/21 07:45 10/10/21 07:45 Labs: Abnormal Lab Results - Last 24 Hours (Table) 10/10/21 10/10/21 10/10/21 Range/Units 07:45 07:45 11:34 ESR 58 H (0-15) mm/hr POC Glucose (mg/dL) 182 H (75-99) mg/dL Creatine Kinase 7984 H* (55-170) U/L 10/10/21 10/10/21 10/11/21 Range/Units 16:55 20:16 05:54 ESR (0-15) mm/hr POC Glucose (mg/dL) 240 H 228 H 113 H (75-99) mg/dL Creatine Kinase (55-170) U/L Assessment and Plan (1) Rhabdomyolysis Narrative/Plan: Patient seems to be clinically stable. Spoke with pathology yesterday. No option for muscle biopsy at this time. Can schedule for early next week. Will follow. Current Visit: Yes Status: Acute Code(s): M62.82 - RHABDOMYOLYSIS SNOMED Code(s): 180391391
[2021-10-11 09:20] LABS: Basophils % (A) 0 %; Eosinophils # (A) 0.1 k/uL (0-0.7); Eosinophils % (A) 1 %; HCT 41.4 % (39.0-53.0); HGB 14.2 gm/dL (13.0-17.5); Lymphocytes # (A) 1.1 k/uL (1.0-4.8); Lymphocytes % (A) 16 %; MCHC 34.3 g/dL (31.0-37.0); MCV 87.6 fL (80.0-100.0); Mean Platelet Volume 8.7; Monocytes # (A) 0.5 k/uL (0-1.0); Monocytes % (A) 8 %; Neutrophils # (A) 4.9 k/uL (1.3-7.7); Neutrophils % (A) 74 %; Platelet Count 259 k/uL (150-450); RBC 4.72 m/uL (4.30-5.90); RDW 13.9 % (11.5-15.5); WBC 6.7 k/uL (3.8-10.6)
[2021-10-11 09:21] LABS: ALT 155 U/L (4-49); AST 385 U/L (17-59); African American GFR (CKD) >90 (>60 ml/min/1.73 sqM); Albumin 2.8 g/dL (3.5-5.0); Alkaline Phosphatase 74 U/L (38-126); Anion Gap 8 mmol/L; Blood Urea Nitrogen 10 mg/dL (9-20); Calcium 8.1 mg/dL (8.4-10.2); Carbon Dioxide 23 mmol/L (22-30); Chloride 103 mmol/L (98-107); Glucose 122 mg/dL (74-99); Non-African American GFR(CKD) >90 (>60 ml/min/1.73 sqM); Potassium 3.7 mmol/L (3.5-5.1); Sodium 134 mmol/L (137-145); Total Bilirubin 0.6 mg/dL (0.2-1.3); Total Protein 5.5 g/dL (6.3-8.2)
--- NOTE | 2021-10-11 10:42 | P.PN ---
Subjective Progress Note Date: 10/11/21 James Reyes, is a year old male who presented to [facility] emergency room with a chief complaint of generalized body ache, cough and shortness of breath, symptoms started 10 days prior to this admission, patient had 3 visits to emergency room due to similar symptoms, he was tested for COVID- 19, influenza A and B, and RSV virus, all these tests were negative, patient condition continued to worsen, patient developed worsening generalized muscle weakness and pain in bilateral hips and shoulder area , during this presentation he had evidence of rhabdomyolysis was elevated creatinine kinase at 11,556 LDH was elevated at 1887, AST 406, ALT 144, d-dimer was also elevated at 0.83, chest x-ray revealed mild bilateral atelectasis, computed tomography scan of the chest did not reveal evidence of pulmonary embolism, computed tomography scan of the abdomen and pelvis revealed fluid collection in the retroperitoneal area, otherwise no significant abnormality, patient was admitted to medical floor for further evaluation and treatment, pulmonary consultation was requested, neurology consultation was requested for 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 Patient denies any significant past medical history, he stated that he was vaccinated for COVID-19 he received the Moderna vaccine in December and January of this year, there is no history of smoking, he drinks alcohol rarely, he stated that he had 3 alcoholic drinks on September 05 and had no alcoholic drinks since then. On 10/08/2021 patient was seen and examined on the telemetry floor he is alert and oriented 3 in no apparent distress he denies any chest pain or shortness of breath there is no fever or chills no dizziness he is complaining of muscle aches and severe weakness, otherwise he denies any complaints at this time. Patient has evidence of rhabdomyolysis and CPK is higher today than yesterday at 12,810, liver enzymes AST and ALT are elevated at 336 and 112 respectively, which is mildly lower than yesterday, C-reactive protein is elevated at 5.9, influenza A and B are negative, rheumatoid factor and LISETTE screen are all negative, hepatitis B screen is negative however Zenia-Lowe virus capsid Ag IgG is positive. At this time neurology pulmonary and infectious disease are following, patient was started on prednisone 60 mg by mouth daily by neurology. MRI of the left shoulder revealed evidence of full thickness tear of the supraspinatus tendon, orthopedic consultation was requested. On 10/09/2021atient is alert and oriented 3. CK down to 7676. Patient re adelaida on steroids. Patient reports minimum improvement while on steroids. Patient maintained on prednisone 60 mg daily. Infectious disease neurology pulmonary and orthopedic services are following. No further workup inpatient per orthopedic services. Patient denies chest pain. Patient denies shortness breath. Patient denies nausea vomiting or diarrhea. Patient denies any urinary burning or frequency On 10/10/2021 patient was seen and examined on the telemetry floor, he is alert and oriented 3 in no apparent distress he is complaining mostly of left shoulder pain, and generalized weakness, he stated that pain in his hips has improved, patient is able to stand and walk to the bathroom and back on his own, there is no fever or chills no headache or dizziness no chest pain no shortness of breath no cough no nausea or vomiting no abdominal pain no diarrhea no blood in the stools no burning with urination no frequency or urgency and no hematuria On 10/11/2021 patient is alert and oriented 3. Patient reports some improvement regards to weakness and muscle aches. Dr. templeton consulted for possible muscle biopsy according to note no option for muscle biopsy at this time but tends scheduled early next week. Possible Thursday for muscle biopsy. Patient maintained on high-dose steroids. Patient denies chest pain or shortness breath. Patient denies nausea vomiting or diarrhea. Patient denies any urinary burning frequency Objective - Vital Signs Vital signs: Vital Signs Temp 97.8 F 10/11/21 08:05 Pulse 96 10/11/21 08:05 Resp 18 10/11/21 08:05 BP 127/79 10/11/21 08:05 Pulse Ox 93 L 10/11/21 08:05 Intake & Output 10/10/21 10/11/21 10/11/21 18:59 06:59 18:59 Intake Total 1320 180 Balance 1320 180 Weight 111.2 kg Intake: Intake, IV Titration 600 Amount Sodium Chloride 0.9% 1, 600 000 ml @ 150 mls/hr IV . Q6H40M [facility] Rx#:[id number] Oral 720 180 Other: Voiding Method Toilet # Voids 1 - Exam In general patient is alert and oriented x 3 in no distress HEENT head normocephalic and atraumatic Neck is supple no JVD no goiter no lymphadenopathy no carotid bruit Chest examination is clear to auscultation no crackles no wheezing Cardiac exam reveals regular heart sounds S1 and S2 no gallops no murmurs Abdomen is soft nontender no organomegaly with normal bowel sounds Extremity exam reveals no edema no cyanosis or clubbing Neurological examination reveals generalized muscle weakness, without any focal deficit - Labs CBC & Chem 7: 10/11/21 07:27 10/11/21 07:27 Labs: Abnormal Lab Results - Last 24 Hours (Table) 10/10/21 10/10/21 10/10/21 Range/Units 11:34 16:55 20:16 Sodium (137-145) mmol/L Creatinine (0.66-1.25) mg/dL Glucose (74-99) mg/dL POC Glucose (mg/dL) 182 H 240 H 228 H (75-99) mg/dL Calcium (8.4-10.2) mg/dL AST (17-59) U/L ALT (4-49) U/L Total Protein (6.3-8.2) g/dL Albumin (3.5-5.0) g/dL 10/11/21 10/11/21 Range/Units 05:54 07:27 Sodium 134 L (137-145) mmol/L Creatinine 0.54 L (0.66-1.25) mg/dL Glucose 122 H (74-99) mg/dL POC Glucose (mg/dL) 113 H (75-99) mg/dL Calcium 8.1 L (8.4-10.2) mg/dL AST 385 H (17-59) U/L ALT 155 H (4-49) U/L Total Protein 5.5 L (6.3-8.2) g/dL Albumin 2.8 L (3.5-5.0) g/dL Assessment and Plan Plan: Upper respiratory infection likely viral, with sore throat, cough and shortness of breath Rhabdomyolysis, with elevated creatinine kinase at 11,556. This is trending mary lou n Elevated AST and ALT, will check hepatitis B and C profile Hyponatremia sodium on presentation 128. 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 Will not be able to complete until early next week Further workup in progress per consulting services Will follow closely.
[2021-10-11 12:06] LABS: Glucose,Whole Blood 188 mg/dL (75-99)
--- NOTE | 2021-10-11 12:19 | P.PN ---
Subjective Progress Note Date: 10/11/21 The patient is seen at bedside and feels about the same today compared to yesterday. He does feels his rash on face is subsiding as well as chest. Objective - Vital Signs Vital signs: Vital Signs Temp 97.8 F 10/11/21 08:05 Pulse 96 10/11/21 08:05 Resp 18 10/11/21 08:05 BP 127/79 10/11/21 08:05 Pulse Ox 93 L 10/11/21 08:05 Intake & Output 10/10/21 10/11/21 10/11/21 18:59 06:59 18:59 Intake Total 1320 180 Balance 1320 180 Weight 111.2 kg Intake: Intake, IV Titration 600 Amount Sodium Chloride 0.9% 1, 600 000 ml @ 150 mls/hr IV . Q6H40M [facility] Rx#:[id number] Oral 720 180 Other: Voiding Method Toilet # Voids 1 - Exam GENERAL: The patient is lying in bed and is moderate to severe acute distress. INTEGUMENARY: There is a rash erythematous rash over the face and it over the nose, and medial side of nasal side of face to medial cheeks bilaterally and eyebrows. Also erythematous rash over the right upper anterior chest---the rash on face and chest is improving. NEUROLOGICAL: Higher mental function: The patient is awake, alert, oriented to self, place and time. Patient is following commands. No aphasia and no neglect. Cranial nerves: The pupils are round, equal and reactive to light and accommodation. Visual english are full to confrontation throughout. Extraocular movement is intact no nystagmus is noted. Facial sensation is normal to touch throughout. The facial strength is normal throughout. Hearing is normal bilaterally to hand rub. Tongue is midline and moved [id number] without any difficulty. No dysarthria is noted. Shoulder shrug is normal bilaterally. Motor: Gait is deferred because of his weakness and pain. The strength is limited because of pain but over the bilateral hip flexion is 4- bilaterally. Bilateral hand teenage babysitter are 4+ bilaterally while bilateral ankles are 5/5. Hard to assess left upper extremity because of significant pain and has tear over left shoulder Minimal decrease tone but hard to assess because of his pain. Normal bulk. Cerebellum: Normal finger to nose over the right but hard to assess over the left because of pain. Sensation: Sensation is normal to touch and pinprick throughout. Reflexes (right/left): bilateral biceps are 0, patellar are 0 otherwise 1+. Plantars are mute bilaterally. WORK-UP: CK level is 11,556-->[place] [address]-->7676 ESR: 60 CRP is 4.4. Lactate Dehydrogenase is 1887. TSH: 2.580 AST of 406 and ALT of 144. latest AST 385 and ALT 155 Ammonia: <9. Magnesium 1.8 Ionized Calcium 4.6 (low normal). Vitamin B12: 742 Serum Folate: 14.30 Calcium is 7.0 Hemoglobin A1c: 10.0 (prior was 6.3 on 09/17/2021) RF: <10 HCV RNA not detected HIV 1/2 abs non-reactive. HIV 24 ab non-reactive LISETTE is negative Anti-DNA ab is negative Reba-1 Abs negative SSA and SSB Abs is negative Hep Bs Ab nonreactive Urinalysis is negative for urinary tract infection but has L4 positive for ketones and 4 positive for glucose. Bey virus is nondetected. Influenza A and RNA/POCR (respectively) are as nondetected CT of the abdomen and pelvis root is reported as bilateral retroperitoneal edema extending from the lower pole of both kidneys into the pelvis presacral region. Clinical significance is not clear. MRI shoulder L with and without: Is reported as there is evidence for full- thickness tear of the supraspinatus tendon at the greater tuberosity humerus. No retraction. No significant subacromial impingement. No evidence of any significant joint effusion. There is muscle enhancement involving the supraspinatus and infraspinatus and teres minor consistent with some nonspecific myositis. CT chest w/ and w/o: Bilateral basilar linear infiltrates and atelectasis which appear slightly increased compared to yesterday. No suspicious pulmonary mass. Normal heart. 2D echo: As reported as left ventricular size is normal. Moderate concentric left ventricle hypertrophy. Ejection fraction of 55-60%. - Labs CBC & Chem 7: 10/11/21 07:27 10/11/21 07:27 Labs: Abnormal Lab Results - Last 24 Hours (Table) 10/10/21 10/10/21 10/11/21 Range/Units 16:55 20:16 05:54 Sodium (137-145) mmol/L Creatinine (0.66-1.25) mg/dL Glucose (74-99) mg/dL POC Glucose (mg/dL) 240 H 228 H 113 H (75-99) mg/dL Calcium (8.4-10.2) mg/dL AST (17-59) U/L ALT (4-49) U/L CK-MB (CK-2) (0.0-2.4) ng/mL Total Protein (6.3-8.2) g/dL Albumin (3.5-5.0) g/dL 10/11/21 10/11/21 10/11/21 Range/Units 07:27 07:27 12:02 Sodium 134 L (137-145) mmol/L Creatinine 0.54 L (0.66-1.25) mg/dL Glucose 122 H (74-99) mg/dL POC Glucose (mg/dL) 188 H (75-99) mg/dL Calcium 8.1 L (8.4-10.2) mg/dL AST 385 H (17-59) U/L ALT 155 H (4-49) U/L CK-MB (CK-2) 21.0 H (0.0-2.4) ng/mL Total Protein 5.5 L (6.3-8.2) g/dL Albumin 2.8 L (3.5-5.0) g/dL Assessment and Plan Assessment: * Predominately proximal extremity weakness with pain, skin rash over right chest, face, significant elevated CK levels, ESR: Appears likely myositis (appears dermatomyositis)---noticing improvement on steroids * CT of the abdomen and pelvis is reported as bilateral retroperitoneal edema extending from the lower pole of both kidneys into the pelvis presacral region. Recommend ruling out any mass. * Moderate hepatopathy (presented with ASA 406 and ALT 144 on initial presentation)---slight trending down * Full-thickness tear of the supraspinatus tendon at the greater tuberosity humerus on MRI * Elevated sugar and seem due to Steroid use with history of borderline DM (was as high as 400 and only had 3 days of steroids then was discontinued by his PCP since sugars were in 400's) * Acute rhabdoymolysis likely due to myopathy/myositis * Acute mild to moderate hyponatremia * Uncontrolled DM (recent HbA1c 10.0 and was Borderline DM. Last HbA1c: 6.3 on 08/2020). * Dyslipidemia Plan: * Continue Prednisone 60mg daily. Started on IV protonix 40mg daily. Recommend close sugar monitoring and will defer that to the primary team. * Could not obtain MRI thigh or arm since unavialble with this MRI machine according to hotel valet attendant. * Ordered repeat CK and ESR level for tomorrow. Pending ASHLEY level, ASHLEY abs, antiPM/SCL-100. * Ordered myositis panel on 10/10/21 (send out to [facility]) and I spoke with computer lab aide to coordinate that. * Please avoid any statins at this time. * Recommend EMG with NCS of upper and lower extremity as Outpatient [facility] (it is difficulty to get EMG with NCS at different facilities as inpatient). * Every 4 neuro checks * Full-thickness tear of the supraspinatus tendon at the greater tuberosity humerus on MRI: Primary team consulted Orthopetic team. * Regarding reported as bilateral retroperitoneal edema extending from the lower pole of both kidneys into the pelvis presacral region per CT abdomen/Plevis will defer further management to the primary team. * Consulted Dr. Vaughan (general surgeon) for muscle biopsy. He stated likely be done Thursday (10/14/2021). * If this is truly Dermatomyositis recommend ruling out malignancy. I consulted Heme/Onc team (Dr. Li). * Started the patient on Vitamin D3 1000U daily. Recommend DEXA scan as outpatient. * Infection disease is consulted by primary team for possible ??viral infection. * Consulted Rheumatology team but I was notified they are not available and will be back in service within 2 weeks. * Physical therapy and occupation therapy * Will defer the rest of medical management to the primary team. The plan is discussed with the patient and his nurse in detailed. Trino Feldman MD Neuro-Hospitalist Time with Patient: Less than 30
[2021-10-11 14:07] LABS: Anti-Smith Ab Interp NEGATIVE (NEGATIVE)
--- NOTE | 2021-10-11 15:47 | PN ---
PROGRESS NOTE DATE OF SERVICE: 10/11/2021 REASON FOR FOLLOWUP: itis and a question of viral syndrome. INTERVAL HISTORY: The patient is afebrile. The patient is breathing comfortably. The patient denies having any chest pain, shortness of breath or cough. No abdominal pain. Muscle aches and pain continue, but no worsening. No abdominal pain or diarrhea. PHYSICAL EXAMINATION: Blood pressure 121/73 with a pulse of 98, temperature 96.2. He is 93% on room air. General description is a middle-aged male lying in bed in no distress. Respiratory system: Unlabored breathing. Clear to auscultation anteriorly. Heart S1, S2. Regular rate and rhythm. Abdomen soft, no tenderness. LABS: Hemoglobin is 14.1, white count 6.7. Creatinine 0.54. Serology for a viral etiology has been negative so far. DIAGNOSTIC IMPRESSION AND PLAN: Patient with muscle aches and pains with elevated , possible viral syndrome in this patient who did have viral serology which came back negative. Patient waiting for the bone marrow biopsy. We will continue to monitor the patient closely off antibiotic therapy and continue supportive care. Family at the bedside. Questions were answered. MMODL / IJN: [id number] /
[2021-10-11 16:38] LABS: LD Isoenzymes 1 20 % (19-38); LD Isoenzymes 2 31 % (30-43); LD Isoenzymes 3 21 % (16-26); LD Isoenzymes 4 11 % (3-12); LD Isoenzymes 5 17 % (3-14); Lactacte Dehydrogenase(LD) ISO 535 U/L (100-220)
[2021-10-11 16:55] LABS: Glucose,Whole Blood 228 mg/dL (75-99)
[2021-10-11 19:59] LABS: Glucose,Whole Blood 265 mg/dL (75-99)
[2021-10-11] MEDS: HYDROcodone/APAP 5-325MG 1 EACH TAB PO PRN (22:04)
[2021-10-12 06:07] LABS: Glucose,Whole Blood 141 mg/dL (75-99)
[2021-10-12] MEDS: SODIUM CHLORIDE 0.9% 1,000 ML IV SCH ×2 (06:23→18:08)
[2021-10-12] MEDS: PANTOPRAZOLE 40 MG TABLET PO SCH (06:40)
[2021-10-12] MEDS: INSULIN ASPART (NovoLOG) 100 UNIT/ML VIAL SQ SCH ×4 (06:40→22:06)
[2021-10-12 07:22] LABS: Basophils % (A) 0 %; Eosinophils # (A) 0.1 k/uL (0-0.7); Eosinophils % (A) 1 %; HCT 36.7 % (39.0-53.0); HGB 12.2 gm/dL (13.0-17.5); Lymphocytes # (A) 0.8 k/uL (1.0-4.8); Lymphocytes % (A) 16 %; MCH 29.3 pg (25.0-35.0); MCHC 33.2 g/dL (31.0-37.0); MCV 88.2 fL (80.0-100.0); Mean Platelet Volume 8.1; Monocytes # (A) 0.5 k/uL (0-1.0); Monocytes % (A) 9 %; Neutrophils # (A) 3.7 k/uL (1.3-7.7); Neutrophils % (A) 73 %; Platelet Count 188 k/uL (150-450); Poikilocytosis Slight; RBC 4.16 m/uL (4.30-5.90); RDW 13.9 % (11.5-15.5); WBC 5.1 k/uL (3.8-10.6)
[2021-10-12 07:42] LABS: ALT 149 U/L (4-49); AST 297 U/L (17-59); African American GFR (CKD) >90 (>60 ml/min/1.73 sqM); Albumin 2.4 g/dL (3.5-5.0); Alkaline Phosphatase 63 U/L (38-126); Anion Gap 6 mmol/L; Blood Urea Nitrogen 10 mg/dL (9-20); C Reactive Protein 3.5 mg/dL (<1.0); Calcium 7.6 mg/dL (8.4-10.2); Carbon Dioxide 25 mmol/L (22-30); Chloride 102 mmol/L (98-107); Glucose 131 mg/dL (74-99); Non-African American GFR(CKD) >90 (>60 ml/min/1.73 sqM); Potassium 3.5 mmol/L (3.5-5.1); Sodium 133 mmol/L (137-145); Total Bilirubin 0.4 mg/dL (0.2-1.3); Total Protein 4.8 g/dL (6.3-8.2)
[2021-10-12 08:09] LABS: Creatine Kinase 6090 U/L (55-170)
[2021-10-12] MEDS: predniSONE 20 MG TAB PO SCH (08:47)
[2021-10-12] MEDS: HYDROcodone/APAP 5-325MG 1 EACH TAB PO PRN (08:47)
[2021-10-12] MEDS: CHOLECALCIFEROL 25 MCG (1000 IU) TABLET PO SCH (08:47)
[2021-10-12] MEDS: ENOXAPARIN 40 MG/0.4 ML SYRINGE SQ SCH (08:47)
[2021-10-12 09:04] LABS: Erythrocyte Sedimentation Rate 62 mm/hr (0-15)
--- NOTE | 2021-10-12 09:24 | P.PN ---
Subjective Progress Note Date: 10/12/21 Principal diagnosis: Myositis Patient says he feels about the same as yesterday. Mild muscle aches. No nausea or vomiting. Tolerating diet. Denies abdominal pain. Objective - Vital Signs Vital signs: Vital Signs Temp 97.8 F 10/12/21 04:00 Pulse 89 10/12/21 04:00 Resp 18 10/12/21 04:00 BP 132/78 10/12/21 04:00 Pulse Ox 95 10/12/21 04:00 Intake & Output 10/11/21 10/12/21 10/12/21 18:59 06:59 18:59 Intake Total 600 Balance 600 Intake: Oral 600 Other: Voiding Method Toilet # Voids 1 # Bowel Movements 0 - Exam Abdomen: Soft, nontender, nondistended - Labs CBC & Chem 7: 10/12/21 06:19 10/12/21 06:19 Labs: Abnormal Lab Results - Last 24 Hours (Table) 10/08/21 10/11/21 10/11/21 Range/Units 08:00 07:27 12:02 RBC (4.30-5.90) m/uL Hgb (13.0-17.5) gm/dL Hct (39.0-53.0) % Lymphocytes # (1.0-4.8) k/uL ESR (0-15) mm/hr Sodium (137-145) mmol/L Creatinine (0.66-1.25) mg/dL Glucose (74-99) mg/dL POC Glucose (mg/dL) 188 H (75-99) mg/dL Calcium (8.4-10.2) mg/dL AST (17-59) U/L ALT (4-49) U/L LD Isoenzymes 535 H (100-220) U/L LD 5 17 H (3-14) % Creatine Kinase (55-170) U/L CK-MB (CK-2) 21.0 H (0.0-2.4) ng/mL C-Reactive Protein (<1.0) mg/dL Total Protein (6.3-8.2) g/dL Albumin (3.5-5.0) g/dL 10/11/21 10/11/21 10/12/21 Range/Units 16:53 19:57 06:05 RBC (4.30-5.90) m/uL Hgb (13.0-17.5) gm/dL Hct (39.0-53.0) % Lymphocytes # (1.0-4.8) k/uL ESR (0-15) mm/hr Sodium (137-145) mmol/L Creatinine (0.66-1.25) mg/dL Glucose (74-99) mg/dL POC Glucose (mg/dL) 228 H 265 H 141 H (75-99) mg/dL Calcium (8.4-10.2) mg/dL AST (17-59) U/L ALT (4-49) U/L LD Isoenzymes (100-220) U/L LD 5 (3-14) % Creatine Kinase (55-170) U/L CK-MB (CK-2) (0.0-2.4) ng/mL C-Reactive Protein (<1.0) mg/dL Total Protein (6.3-8.2) g/dL Albumin (3.5-5.0) g/dL 10/12/21 10/12/21 Range/Units 06:19 06:19 RBC 4.16 L (4.30-5.90) m/uL Hgb 12.2 L (13.0-17.5) gm/dL Hct 36.7 L (39.0-53.0) % Lymphocytes # 0.8 L (1.0-4.8) k/uL ESR 62 H (0-15) mm/hr Sodium 133 L (137-145) mmol/L Creatinine 0.46 L (0.66-1.25) mg/dL Glucose 131 H (74-99) mg/dL POC Glucose (mg/dL) (75-99) mg/dL Calcium 7.6 L (8.4-10.2) mg/dL AST 297 H (17-59) U/L ALT 149 H (4-49) U/L LD Isoenzymes (100-220) U/L LD 5 (3-14) % Creatine Kinase 6090 H* (55-170) U/L CK-MB (CK-2) (0.0-2.4) ng/mL C-Reactive Protein 3.5 H (<1.0) mg/dL Total Protein 4.8 L (6.3-8.2) g/dL Albumin 2.4 L (3.5-5.0) g/dL Assessment and Plan (1) Rhabdomyolysis Narrative/Plan: Patient without significant changes. Continue steroids per neurology. Will discuss with surgical team regarding scheduling muscle biopsy early this coming week. Current Visit: Yes Status: Acute Code(s): M62.82 - RHABDOMYOLYSIS SNOMED Code(s): 977440445
[2021-10-12 12:09] LABS: Glucose,Whole Blood 197 mg/dL (75-99)
--- NOTE | 2021-10-12 12:20 | P.PN ---
Subjective Progress Note Date: 10/12/21 James Reyes, is a year old male who presented to [facility] emergency room with a chief complaint of generalized body ache, cough and shortness of breath, symptoms started 10 days prior to this admission, patient had 3 visits to emergency room due to similar symptoms, he was tested for COVID- 19, influenza A and B, and RSV virus, all these tests were negative, patient condition continued to worsen, patient developed worsening generalized muscle weakness and pain in bilateral hips and shoulder area , during this presentation he had evidence of rhabdomyolysis was elevated creatinine kinase at 11,556 LDH was elevated at 1887, AST 406, ALT 144, d-dimer was also elevated at 0.83, chest x-ray revealed mild bilateral atelectasis, computed tomography scan of the chest did not reveal evidence of pulmonary embolism, computed tomography scan of the abdomen and pelvis revealed fluid collection in the retroperitoneal area, otherwise no significant abnormality, patient was admitted to medical floor for further evaluation and treatment, pulmonary consultation was requested, neurology consultation was requested for 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 Patient denies any significant past medical history, he stated that he was vaccinated for COVID-19 he received the Moderna vaccine in December and January of this year, there is no history of smoking, he drinks alcohol rarely, he stated that he had 3 alcoholic drinks on September 05 and had no alcoholic drinks since then. On 10/08/2021 patient was seen and examined on the telemetry floor he is alert and oriented 3 in no apparent distress he denies any chest pain or shortness of breath there is no fever or chills no dizziness he is complaining of muscle aches and severe weakness, otherwise he denies any complaints at this time. Patient has evidence of rhabdomyolysis and CPK is higher today than yesterday at 12,810, liver enzymes AST and ALT are elevated at 336 and 112 respectively, which is mildly lower than yesterday, C-reactive protein is elevated at 5.9, influenza A and B are negative, rheumatoid factor and LISETTE screen are all negative, hepatitis B screen is negative however Zenia-Lowe virus capsid Ag IgG is positive. At this time neurology pulmonary and infectious disease are following, patient was started on prednisone 60 mg by mouth daily by neurology. MRI of the left shoulder revealed evidence of full thickness tear of the supraspinatus tendon, orthopedic consultation was requested. On 10/09/2021atient is alert and oriented 3. CK down to 7676. Patient re adelaida on steroids. Patient reports minimum improvement while on steroids. Patient maintained on prednisone 60 mg daily. Infectious disease neurology pulmonary and orthopedic services are following. No further workup inpatient per orthopedic services. Patient denies chest pain. Patient denies shortness breath. Patient denies nausea vomiting or diarrhea. Patient denies any urinary burning or frequency On 10/10/2021 patient was seen and examined on the telemetry floor, he is alert and oriented 3 in no apparent distress he is complaining mostly of left shoulder pain, and generalized weakness, he stated that pain in his hips has improved, patient is able to stand and walk to the bathroom and back on his own, there is no fever or chills no headache or dizziness no chest pain no shortness of breath no cough no nausea or vomiting no abdominal pain no diarrhea no blood in the stools no burning with urination no frequency or urgency and no hematuria On 10/11/2021 patient is alert and oriented 3. Patient reports some improvement regards to weakness and muscle aches. Dr. templeton consulted for possible muscle biopsy according to note no option for muscle biopsy at this time but tends scheduled early next week. Possible Thursday for muscle biopsy. Patient maintained on high-dose steroids. Patient denies chest pain or shortness breath. Patient denies nausea vomiting or diarrhea. Patient denies any urinary burning frequency On 10/12/2021 patient was seen and examined on the medical floor he is alert and oriented 3 in no apparent distress he is still complaining of pain in the left shoulder and complaining of weakness in bilateral lower extremities-menchaca he denies any complaints there is no fever or chills no headache or dizziness no chest pain no shortness of breath no cough no nausea or vomiting no abdominal pain no diarrhea no blood in the stools no burning with urination no frequency or urgency and no hematuria. CK level is decreasing gradually patient is mainta ined on oral steroids we are still awaiting muscle biopsy at this time Objective - Vital Signs Vital signs: Vital Signs Temp 98.0 F 10/12/21 08:42 Pulse 72 10/12/21 08:42 Resp 18 10/12/21 08:42 BP 133/78 10/12/21 08:42 Pulse Ox 98 10/12/21 08:42 Intake & Output 10/11/21 10/12/21 10/12/21 18:59 06:59 18:59 Intake Total 600 Balance 600 Intake: Oral 600 Other: Voiding Method Toilet Toilet # Voids 1 # Bowel Movements 0 - Exam In general patient is alert and oriented x 3 in no distress HEENT head normocephalic and atraumatic Neck is supple no JVD no goiter no lymphadenopathy no carotid bruit Chest examination is clear to auscultation no crackles no wheezing Cardiac exam reveals regular heart sounds S1 and S2 no gallops no murmurs Abdomen is soft nontender no organomegaly with normal bowel sounds Extremity exam reveals no edema no cyanosis or clubbing Neurological examination reveals generalized muscle weakness, without any focal deficit - Labs CBC & Chem 7: 10/12/21 06:19 10/12/21 06:19 Labs: Abnormal Lab Results - Last 24 Hours (Table) 10/08/21 10/11/21 10/11/21 Range/Units 08:00 07:27 12:02 RBC (4.30-5.90) m/uL Hgb (13.0-17.5) gm/dL Hct (39.0-53.0) % Lymphocytes # (1.0-4.8) k/uL ESR (0-15) mm/hr Sodium (137-145) mmol/L Creatinine (0.66-1.25) mg/dL Glucose (74-99) mg/dL POC Glucose (mg/dL) 188 H (75-99) mg/dL Calcium (8.4-10.2) mg/dL AST (17-59) U/L ALT (4-49) U/L LD Isoenzymes 535 H (100-220) U/L LD 5 17 H (3-14) % Creatine Kinase (55-170) U/L CK-MB (CK-2) 21.0 H (0.0-2.4) ng/mL C-Reactive Protein (<1.0) mg/dL Total Protein (6.3-8.2) g/dL Albumin (3.5-5.0) g/dL 10/11/21 10/11/21 10/12/21 Range/Units 16:53 19:57 06:05 RBC (4.30-5.90) m/uL Hgb (13.0-17.5) gm/dL Hct (39.0-53.0) % Lymphocytes # (1.0-4.8) k/uL ESR (0-15) mm/hr Sodium (137-145) mmol/L Creatinine (0.66-1.25) mg/dL Glucose (74-99) mg/dL POC Glucose (mg/dL) 228 H 265 H 141 H (75-99) mg/dL Calcium (8.4-10.2) mg/dL AST (17-59) U/L ALT (4-49) U/L LD Isoenzymes (100-220) U/L LD 5 (3-14) % Creatine Kinase (55-170) U/L CK-MB (CK-2) (0.0-2.4) ng/mL C-Reactive Protein (<1.0) mg/dL Total Protein (6.3-8.2) g/dL Albumin (3.5-5.0) g/dL 10/12/21 10/12/21 Range/Units 06:19 06:19 RBC 4.16 L (4.30-5.90) m/uL Hgb 12.2 L (13.0-17.5) gm/dL Hct 36.7 L (39.0-53.0) % Lymphocytes # 0.8 L (1.0-4.8) k/uL ESR 62 H (0-15) mm/hr Sodium 133 L (137-145) mmol/L Creatinine 0.46 L (0.66-1.25) mg/dL Glucose 131 H (74-99) mg/dL POC Glucose (mg/dL) (75-99) mg/dL Calcium 7.6 L (8.4-10.2) mg/dL AST 297 H (17-59) U/L ALT 149 H (4-49) U/L LD Isoenzymes (100-220) U/L LD 5 (3-14) % Creatine Kinase 6090 H* (55-170) U/L CK-MB (CK-2) (0.0-2.4) ng/mL C-Reactive Protein 3.5 H (<1.0) mg/dL Total Protein 4.8 L (6.3-8.2) g/dL Albumin 2.4 L (3.5-5.0) g/dL Assessment and Plan Plan: Upper respiratory infection likely viral, with sore throat, cough and shortness of breath Rhabdomyolysis, with elevated creatinine kinase at 11,556. This is trending down Elevated AST and ALT, will check hepatitis B and C profile Hyponatremia sodium on presentation 128. 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 Will not be able to complete until early next week Further workup in progress per consulting services Will follow closely.
--- NOTE | 2021-10-12 13:00 | P.PN ---
Subjective Progress Note Date: 10/12/21 The patient is seen at bedside and he feels somewhat better today but continues to have pain throughout muscles. He denies of any new neurological problems. Objective - Vital Signs Vital signs: Vital Signs Temp 98.0 F 10/12/21 08:42 Pulse 72 10/12/21 08:42 Resp 18 10/12/21 08:42 BP 133/78 10/12/21 08:42 Pulse Ox 98 10/12/21 08:42 Intake & Output 10/11/21 10/12/21 10/12/21 18:59 06:59 18:59 Intake Total 600 240 Balance 600 240 Intake: Oral 600 240 Other: Voiding Method Toilet Toilet # Voids 1 # Bowel Movements 0 - Exam GENERAL: The patient is lying in bed and is moderate to severe acute distress. INTEGUMENARY: There is a rash erythematous rash over the face and it over the nose, and medial side of nasal side of face to medial cheeks bilaterally and eyebrows. Also erythematous rash over the right upper anterior chest---the rash on face and chest is improving. NEUROLOGICAL: Higher mental function: The patient is awake, alert, oriented to self, place and time. Patient is following commands. No aphasia and no neglect. Cranial nerves: The pupils are round, equal and reactive to light and accommodation. Visual english are full to confrontation throughout. Extraocular movement is intact no nystagmus is noted. Facial sensation is normal to touch throughout. The facial strength is normal throughout. Hearing is normal bilaterally to hand rub. Tongue is midline and moved [id number] without any difficulty. No dysarthria is noted. Shoulder shrug is normal bilaterally. Motor: Gait is deferred because of his weakness and pain. The strength is limited because of pain but over the bilateral hip flexion is 4- bilaterally. Bilateral hand account planner are 4+ bilaterally while bilateral ankles are 5/5. Hard to assess left upper extremity because of significant pain and has tear over left shoulder Minimal decrease tone but hard to assess because of his pain. Normal bulk. Cerebellum: Normal finger to nose over the right but hard to assess over the left because of pain. Sensation: Sensation is normal to touch and pinprick throughout. Reflexes (right/left): bilateral biceps are 0, patellar are 0 otherwise 1+. Plantars are mute bilaterally. WORK-UP: CK level is 11,556-->[place] [address]-->7676-->6090 ESR: 60->58->62 CRP is 4.4->3.5 Lactate Dehydrogenase is 1887. TSH: 2.580 AST of 406 and ALT of 144. latest AST 297 and ALT 149 Ammonia: <9. Magnesium 1.8 Ionized Calcium 4.6 (low normal). Vitamin B12: 742 Serum Folate: 14.30 Calcium is 7.0 Hemoglobin A1c: 10.0 (prior was 6.3 on 09/17/2021) RF: <10 HCV RNA not detected HIV 1/2 abs non-reactive. HIV 24 ab non-reactive Hepatitis Panel is negative LISETTE is negative Anti-DNA ab is negative [employer] antibody is negative Anti-holt antibody is negative Reba-1 Abs negative SSA and SSB Abs is negative Hep Bs Ab nonreactive Urinalysis is negative for urinary tract infection but has L4 positive for ketones and 4 positive for glucose. Bey virus is nondetected. Influenza A and RNA/POCR (respectively) are as nondetected CT of the abdomen and pelvis root is reported as bilateral retroperitoneal edema extending from the lower pole of both kidneys into the pelvis presacral region. Clinical significance is not clear. MRI shoulder L with and without: Is reported as there is evidence for full- thickness tear of the supraspinatus tendon at the greater tuberosity humerus. No retraction. No significant subacromial impingement. No evidence of any significant joint effusion. There is muscle enhancement involving the supraspinatus and infraspinatus and teres minor consistent with some nonspecific myositis. CT chest w/ and w/o: Bilateral basilar linear infiltrates and atelectasis which appear slightly increased compared to yesterday. No suspicious pulmonary mass. Normal heart. 2D echo: As reported as left ventricular size is normal. Moderate concentric left ventricle hypertrophy. Ejection fraction of 55-60%. - Labs CBC & Chem 7: 10/12/21 06:19 10/12/21 06:19 Labs: Abnormal Lab Results - Last 24 Hours (Table) 10/08/21 10/11/21 10/11/21 Range/Units 08:00 16:53 19:57 RBC (4.30-5.90) m/uL Hgb (13.0-17.5) gm/dL Hct (39.0-53.0) % Lymphocytes # (1.0-4.8) k/uL ESR (0-15) mm/hr Sodium (137-145) mmol/L Creatinine (0.66-1.25) mg/dL Glucose (74-99) mg/dL POC Glucose (mg/dL) 228 H 265 H (75-99) mg/dL Calcium (8.4-10.2) mg/dL AST (17-59) U/L ALT (4-49) U/L LD Isoenzymes 535 H (100-220) U/L LD 5 17 H (3-14) % Creatine Kinase (55-170) U/L C-Reactive Protein (<1.0) mg/dL Total Protein (6.3-8.2) g/dL Albumin (3.5-5.0) g/dL 10/12/21 10/12/21 10/12/21 Range/Units 06:05 06:19 06:19 RBC 4.16 L (4.30-5.90) m/uL Hgb 12.2 L (13.0-17.5) gm/dL Hct 36.7 L (39.0-53.0) % Lymphocytes # 0.8 L (1.0-4.8) k/uL ESR 62 H (0-15) mm/hr Sodium 133 L (137-145) mmol/L Creatinine 0.46 L (0.66-1.25) mg/dL Glucose 131 H (74-99) mg/dL POC Glucose (mg/dL) 141 H (75-99) mg/dL Calcium 7.6 L (8.4-10.2) mg/dL AST 297 H (17-59) U/L ALT 149 H (4-49) U/L LD Isoenzymes (100-220) U/L LD 5 (3-14) % Creatine Kinase 6090 H* (55-170) U/L C-Reactive Protein 3.5 H (<1.0) mg/dL Total Protein 4.8 L (6.3-8.2) g/dL Albumin 2.4 L (3.5-5.0) g/dL 10/12/21 Range/Units 12:04 RBC (4.30-5.90) m/uL Hgb (13.0-17.5) gm/dL Hct (39.0-53.0) % Lymphocytes # (1.0-4.8) k/uL ESR (0-15) mm/hr Sodium (137-145) mmol/L Creatinine (0.66-1.25) mg/dL Glucose (74-99) mg/dL POC Glucose (mg/dL) 197 H (75-99) mg/dL Calcium (8.4-10.2) mg/dL AST (17-59) U/L ALT (4-49) U/L LD Isoenzymes (100-220) U/L LD 5 (3-14) % Creatine Kinase (55-170) U/L C-Reactive Protein (<1.0) mg/dL Total Protein (6.3-8.2) g/dL Albumin (3.5-5.0) g/dL Assessment and Plan Assessment: * Predominately proximal extremity weakness with pain, skin rash over right chest, face, significant elevated CK levels, ESR: 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 Recommend ruling out any mass. * Moderate hepatopathy (presented with ASA 406 and ALT 144 on initial presentation)---slight trending down * Full-thickness tear of the supraspinatus tendon at the greater tuberosity humerus on MRI * Elevated sugar and seem due to Steroid use with history of borderline DM (was as high as 400 and only had 3 days of steroids then was discontinued by his PC P since sugars were in 400's) * Acute rhabdoymolysis likely due to myopathy/myositis * Acute mild to moderate hyponatremia * Uncontrolled DM (recent HbA1c 10.0 and was Borderline DM. Last HbA1c: 6.3 on 08/2020). * Dyslipidemia Plan: * Continue Prednisone 60mg daily. Started on IV protonix 40mg daily. Recommend close sugar monitoring and will defer that to the primary team. * Could not obtain MRI thigh or arm since unavialble with this MRI machine according to library specialist. * Pending antiPM/SCL-100. * Ordered myositis panel on 10/10/21 (send out to [facility]) and I spoke with label drier to coordinate that. * Please avoid any statins at this time. * Recommend EMG with NCS of upper and lower extremity as Outpatient [facility] (it is difficulty to get EMG with NCS at different facilities as inpatient). * Every 4 neuro checks * Full-thickness tear of the supraspinatus tendon at the greater tuberosity humerus on MRI: Primary team consulted Orthopetic team. * Regarding reported as bilateral retroperitoneal edema extending from the lower pole of both kidneys into the pelvis presacral region per CT abdomen/Plevis will defer further management to the primary team. * Consulted Dr. Vaughan (general surgeon) for muscle biopsy. Will happen this coming up week per surgery team. * If this is truly Dermatomyositis recommend ruling out malignancy. I consulted Heme/Onc team (Dr. Li). No further investigation from their perspective. * Started the patient on Vitamin D3 1000U daily. Recommend DEXA scan as out patient. * Infection disease is consulted by primary team for possible ??viral infection. * Consulted Rheumatology team but I was notified they are not available and will be back in service within 2 weeks. * Physical therapy and occupation therapy * Will defer the rest of medical management to the primary team. * Upon discharge the patient needs to follow-up with neuromuscular clinic (either [facility] and call [phone] and follow-up with Dr. Alfonso Pierre vs [facility] [phone] vs at [facility]) and Poolroom/Poolhall Manager within 1-2 weeks as outpatient. The plan is discussed with the patient and his nurse in detailed. Trino Feldman MD Neuro-Hospitalist Time with Patient: Less than 30
[2021-10-12 16:42] LABS: Glucose,Whole Blood 318 mg/dL (75-99)
[2021-10-12 20:49] LABS: Glucose,Whole Blood 243 mg/dL (75-99)
[2021-10-12] MEDS: IBUPROFEN 600 MG TAB PO PRN (22:05)
[2021-10-13] MEDS: IBUPROFEN 600 MG TAB PO PRN ×2 (03:35→10:37)
[2021-10-13] MEDS: SODIUM CHLORIDE 0.9% 1,000 ML IV SCH ×5 (04:31→20:53)
[2021-10-13 06:38] LABS: Glucose,Whole Blood 119 mg/dL (75-99)
[2021-10-13] MEDS: INSULIN ASPART (NovoLOG) 100 UNIT/ML VIAL SQ SCH ×4 (06:41→20:51)
[2021-10-13] MEDS: PANTOPRAZOLE 40 MG TABLET PO SCH (06:55)
[2021-10-13 08:26] LABS: Basophils % (A) 0 %; Eosinophils # (A) 0.1 k/uL (0-0.7); Eosinophils % (A) 1 %; HCT 37.4 % (39.0-53.0); HGB 12.4 gm/dL (13.0-17.5); Lymphocytes # (A) 1.1 k/uL (1.0-4.8); Lymphocytes % (A) 19 %; MCH 29.6 pg (25.0-35.0); MCHC 33.3 g/dL (31.0-37.0); MCV 88.9 fL (80.0-100.0); Mean Platelet Volume 8.1; Monocytes # (A) 0.5 k/uL (0-1.0); Monocytes % (A) 10 %; Neutrophils # (A) 3.8 k/uL (1.3-7.7); Neutrophils % (A) 68 %; Platelet Count 207 k/uL (150-450); Poikilocytosis Slight; RBC 4.21 m/uL (4.30-5.90); RDW 14.1 % (11.5-15.5); WBC 5.5 k/uL (3.8-10.6)
[2021-10-13 08:38] LABS: ALT 167 U/L (4-49); AST 268 U/L (17-59); African American GFR (CKD) >90 (>60 ml/min/1.73 sqM); Albumin 2.5 g/dL (3.5-5.0); Alkaline Phosphatase 66 U/L (38-126); Anion Gap 3 mmol/L; Blood Urea Nitrogen 11 mg/dL (9-20); Calcium 7.8 mg/dL (8.4-10.2); Carbon Dioxide 26 mmol/L (22-30); Chloride 103 mmol/L (98-107); Glucose 141 mg/dL (74-99); Non-African American GFR(CKD) >90 (>60 ml/min/1.73 sqM); Potassium 3.5 mmol/L (3.5-5.1); Sodium 132 mmol/L (137-145); Total Bilirubin 0.6 mg/dL (0.2-1.3); Total Protein 5.2 g/dL (6.3-8.2)
[2021-10-13] MEDS: ENOXAPARIN 40 MG/0.4 ML SYRINGE SQ SCH (09:00)
[2021-10-13] MEDS: CHOLECALCIFEROL 25 MCG (1000 IU) TABLET PO SCH (09:00)
[2021-10-13] MEDS: predniSONE 20 MG TAB PO SCH (09:00)
[2021-10-13 09:22] LABS: Creatine Kinase 4713 U/L (55-170)
--- NOTE | 2021-10-13 10:36 | P.PN ---
Subjective Progress Note Date: 10/13/21 The patient is seen at bedside and he feels he is doing better today. He denies of any further neurological issues. Objective - Vital Signs Vital signs: Vital Signs Temp 97.8 F 10/13/21 04:00 Pulse 88 10/13/21 04:00 Resp 18 10/13/21 04:00 BP 122/73 10/13/21 04:00 Pulse Ox 95 10/13/21 04:00 Intake & Output 10/12/21 10/13/21 10/13/21 18:59 06:59 18:59 Intake Total 240 180 Balance 240 180 Intake: Oral 240 180 Other: Voiding Method Toilet Toilet # Voids 1 1 # Bowel Movements 1 - Exam GENERAL: The patient is lying in bed and is moderate to severe acute distress. INTEGUMENARY: No further noticeable rash noted over chest or face. NEUROLOGICAL: Higher mental function: The patient is awake, alert, oriented to self, place and time. Patient is following commands. No aphasia and no neglect. Cranial nerves: The pupils are round, equal and reactive to light and accommodation. Visual english are full to confrontation throughout. Extraocular movement is intact no nystagmus is noted. Facial sensation is normal to touch throughout. The facial strength is normal throughout. Hearing is normal bilaterally to hand rub. Tongue is midline and moved [id number] without any difficulty. No dysarthria is noted. Shoulder shrug is normal bilaterally. Motor: Gait is deferred because of his weakness and pain. The strength is limited because of pain. Right proximal is 4+ while distal is 5/5. Left upper extremity is 4+. Bilateral hand mechanic field service are 4+ bilaterally. Bilateral hip flexion is 4+bilaterally Knee extension are 4- and ankles are 5/5. Normal tone and bulk. Cerebellum: Normal finger to nose over the right but hard to assess over the left because of pain. Sensation: Sensation is normal to touch and pinprick throughout. Reflexes (right/left): bilateral biceps are 0, patellar are 0 otherwise 1+. Plantars are mute bilaterally. WORK-UP: CK level is 11,556-->[place] [address]-->7676-->6090 ESR: 60->58->62 CRP is 4.4->3.5 Lactate Dehydrogenase is 1887. TSH: 2.580 AST of 406 and ALT of 144. latest AST 297 and ALT 149 Ammonia: <9. Magnesium 1.8 Ionized Calcium 4.6 (low normal). Vitamin B12: 742 Serum Folate: 14.30 Calcium is 7.0 Hemoglobin A1c: 10.0 (prior was 6.3 on 09/17/2021) RF: <10 HCV RNA not detected HIV 1/2 abs non-reactive. HIV 24 ab non-reactive Hepatitis Panel is negative LISETTE is negative Anti-DNA ab is negative LENS INSPECTOR antibody is negative Anti-holt antibody is negative Reba-1 Abs negative SSA and SSB Abs is negative Hep Bs Ab nonreactive Urinalysis is negative for urinary tract infection but has L4 positive for ketones and 4 positive for glucose. Bey virus is nondetected. Influenza A and RNA/POCR (respectively) are as nondetected CT of the abdomen and pelvis root is reported as bilateral retroperitoneal edema extending from the lower pole of both kidneys into the pelvis presacral region. Clinical significance is not clear. MRI shoulder L with and without: Is reported as there is evidence for full- thickness tear of the supraspinatus tendon at the greater tuberosity humerus. No retraction. No significant subacromial impingement. No evidence of any significant joint effusion. There is muscle enhancement involving the supraspinatus and infraspinatus and teres minor consistent with some nonspecific myositis. CT chest w/ and w/o: Bilateral basilar linear infiltrates and atelectasis which appear slightly increased compared to yesterday. No suspicious pulmonary mass. Normal heart. 2D echo: As reported as left ventricular size is normal. Moderate concentric left ventricle hypertrophy. Ejection fraction of 55-60%. - Labs CBC & Chem 7: 10/13/21 07:54 10/13/21 07:54 Labs: Abnormal Lab Results - Last 24 Hours (Table) 10/12/21 10/12/21 10/12/21 Range/Units 12:04 16:40 20:47 RBC (4.30-5.90) m/uL Hgb (13.0-17.5) gm/dL Hct (39.0-53.0) % Sodium (137-145) mmol/L Creatinine (0.66-1.25) mg/dL Glucose (74-99) mg/dL POC Glucose (mg/dL) 197 H 318 H 243 H (75-99) mg/dL Calcium (8.4-10.2) mg/dL AST (17-59) U/L ALT (4-49) U/L Creatine Kinase (55-170) U/L Total Protein (6.3-8.2) g/dL Albumin (3.5-5.0) g/dL 10/13/21 10/13/21 10/13/21 Range/Units 06:37 07:54 07:54 RBC 4.21 L (4.30-5.90) m/uL Hgb 12.4 L (13.0-17.5) gm/dL Hct 37.4 L (39.0-53.0) % Sodium 132 L (137-145) mmol/L Creatinine 0.51 L (0.66-1.25) mg/dL Glucose 141 H (74-99) mg/dL POC Glucose (mg/dL) 119 H (75-99) mg/dL Calcium 7.8 L (8.4-10.2) mg/dL AST 268 H (17-59) U/L ALT 167 H (4-49) U/L Creatine Kinase 4713 H* (55-170) U/L Total Protein 5.2 L (6.3-8.2) g/dL Albumin 2.5 L (3.5-5.0) g/dL Assessment and Plan Assessment: * Predominately proximal extremity weakness with pain, skin rash over right chest, face, significant elevated CK levels, ESR: Appears likely myositis (appears dermatomyositis)---noticing improvement on steroids * CT of the abdomen and pelvis is reported as bilateral retroperitoneal edema extending from the lower pole of both kidneys into the pelvis presacral region. Recommend ruling out any mass. * Moderate hepatopathy (presented with ASA 406 and ALT 144 on initial presentation)---slight trending down * Full-thickness tear of the supraspinatus tendon at the greater tuberosity humerus on MRI * Elevated sugar and seem due to Steroid use with history of borderline DM (was as high as 400 and only had 3 days of steroids then was discontinued by his PCP since sugars were in 400's) * Acute rhabdoymolysis likely due to myopathy/myositis * Acute mild to moderate hyponatremia * Uncontrolled DM (recent HbA1c 10.0 and was Borderline DM. Last HbA1c: 6.3 on 08/2020). * Dyslipidemia Plan: * Continue Prednisone 60mg daily. Started on IV protonix 40mg daily. Recommend close sugar monitoring and will defer that to the primary team. * Could not obtain MRI thigh or arm since unavailable with this MRI machine according to escalator operator. * Ordered repeat CK, ESR and CRP. * Pending antiPM/SCL-100 and antimitochondrial abs. * Ordered myositis panel on 10/10/21 (send out to [facility]) and I spoke with laborer vegetable farm to coordinate that. * Please avoid any statins at this time. * Recommend EMG with NCS of upper and lower extremity as Outpatient [facility] (it is difficulty to get EMG with NCS at different facilities as inpatient). * Every 4 neuro checks * Full-thickness tear of the supraspinatus tendon at the greater tuberosity humerus on MRI: Primary team consulted Orthopetic team. * Regarding reported as bilateral retroperitoneal edema extending from the lower pole of both kidneys into the pelvis presacral region per CT abdomen/Plevis will defer further management to the primary team. * Consulted Dr. Vaughan (general surgeon) for muscle biopsy (left shoulder, arm and right thigh). Will happen this coming up week per surgery team. * If this is truly Dermatomyositis recommend ruling out malignancy. I consulted Heme/Onc team (Dr. Li). No further investigation from their perspective. * Started the patient on Vitamin D3 1000U daily. Recommend DEXA scan as outpatient. * Infection disease is consulted by primary team for possible ??viral infection. * Consulted Rheumatology team but I was notified they are not available and will be back in service within 2 weeks. * Physical therapy and occupation therapy * Will defer the rest of medical management to the primary team. * Upon discharge the patient needs to follow-up with neuromuscular clinic (either [facility] and call [phone] and follow-up with Dr. Alfonso Pierre vs [facility] [phone] vs at [facility]) and [employer] within 1-2 weeks as outpatient. The plan is discussed with the patient and his nurse in detailed. Dr. Lindquist will resume Neurology service tomorrow AM. Trino Feldman MD Neuro-Hospitalist Time with Patient: Less than 30
--- NOTE | 2021-10-13 11:01 | P.PN ---
Subjective Progress Note Date: 10/13/21 Principal diagnosis: Myositis Patient feels about the same today. Overall his energy level has been improving however. Denies pain. Objective - Vital Signs Vital signs: Vital Signs Temp 97.8 F 10/13/21 04:00 Pulse 88 10/13/21 04:00 Resp 18 10/13/21 04:00 BP 122/73 10/13/21 04:00 Pulse Ox 95 10/13/21 04:00 Intake & Output 10/12/21 10/13/21 10/13/21 18:59 06:59 18:59 Intake Total 240 180 Balance 240 180 Intake: Oral 240 180 Other: Voiding Method Toilet Toilet # Voids 1 1 # Bowel Movements 1 - Exam Abdomen: Soft, nontender, nondistended - Labs CBC & Chem 7: 10/13/21 07:54 10/13/21 07:54 Labs: Abnormal Lab Results - Last 24 Hours (Table) 10/12/21 10/12/21 10/12/21 Range/Units 12:04 16:40 20:47 RBC (4.30-5.90) m/uL Hgb (13.0-17.5) gm/dL Hct (39.0-53.0) % Sodium (137-145) mmol/L Creatinine (0.66-1.25) mg/dL Glucose (74-99) mg/dL POC Glucose (mg/dL) 197 H 318 H 243 H (75-99) mg/dL Calcium (8.4-10.2) mg/dL AST (17-59) U/L ALT (4-49) U/L Creatine Kinase (55-170) U/L Total Protein (6.3-8.2) g/dL Albumin (3.5-5.0) g/dL 10/13/21 10/13/21 10/13/21 Range/Units 06:37 07:54 07:54 RBC 4.21 L (4.30-5.90) m/uL Hgb 12.4 L (13.0-17.5) gm/dL Hct 37.4 L (39.0-53.0) % Sodium 132 L (137-145) mmol/L Creatinine 0.51 L (0.66-1.25) mg/dL Glucose 141 H (74-99) mg/dL POC Glucose (mg/dL) 119 H (75-99) mg/dL Calcium 7.8 L (8.4-10.2) mg/dL AST 268 H (17-59) U/L ALT 167 H (4-49) U/L Creatine Kinase 4713 H* (55-170) U/L Total Protein 5.2 L (6.3-8.2) g/dL Albumin 2.5 L (3.5-5.0) g/dL Assessment and Plan (1) Rhabdomyolysis Narrative/Plan: Patient doing about the same. Will arrange for muscle biopsy tomorrow or Thursday. Current Visit: Yes Status: Acute Code(s): M62.82 - RHABDOMYOLYSIS SNOMED Code(s): 477437037
[2021-10-13 11:43] LABS: Glucose,Whole Blood 181 mg/dL (75-99)
[2021-10-13 16:45] LABS: Glucose,Whole Blood 237 mg/dL (75-99)
--- NOTE | 2021-10-13 16:55 | P.PN ---
Subjective Progress Note Date: 10/13/21 James Reyes, is a year old male who presented to [facility] emergency room with a chief complaint of generalized body ache, cough and shortness of breath, symptoms started 10 days prior to this admission, patient had 3 visits to emergency room due to similar symptoms, he was tested for COVID- 19, influenza A and B, and RSV virus, all these tests were negative, patient condition continued to worsen, patient developed worsening generalized muscle weakness and pain in bilateral hips and shoulder area , during this presentation he had evidence of rhabdomyolysis was elevated creatinine kinase at 11,556 LDH was elevated at 1887, AST 406, ALT 144, d-dimer was also elevated at 0.83, chest x-ray revealed mild bilateral atelectasis, computed tomography scan of the chest did not reveal evidence of pulmonary embolism, computed tomography scan of the abdomen and pelvis revealed fluid collection in the retroperitoneal area, otherwise no significant abnormality, patient was admitted to medical floor for further evaluation and treatment, pulmonary consultation was requested, neurology consultation was requested for 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 Patient denies any significant past medical history, he stated that he was vaccinated for COVID-19 he received the Moderna vaccine in December and January of this year, there is no history of smoking, he drinks alcohol rarely, he stated that he had 3 alcoholic drinks on September 05 and had no alcoholic drinks since then. On 10/08/2021 patient was seen and examined on the telemetry floor he is alert and oriented 3 in no apparent distress he denies any chest pain or shortness of breath there is no fever or chills no dizziness he is complaining of muscle aches and severe weakness, otherwise he denies any complaints at this time. Patient has evidence of rhabdomyolysis and CPK is higher today than yesterday at 12,810, liver enzymes AST and ALT are elevated at 336 and 112 respectively, which is mildly lower than yesterday, C-reactive protein is elevated at 5.9, influenza A and B are negative, rheumatoid factor and LISETTE screen are all negative, hepatitis B screen is negative however Zenia-Lowe virus capsid Ag IgG is positive. At this time neurology pulmonary and infectious disease are following, patient was started on prednisone 60 mg by mouth daily by neurology. MRI of the left shoulder revealed evidence of full thickness tear of the supraspinatus tendon, orthopedic consultation was requested. On 10/09/2021atient is alert and oriented 3. CK down to 7676. Patient re adelaida on steroids. Patient reports minimum improvement while on steroids. Patient maintained on prednisone 60 mg daily. Infectious disease neurology pulmonary and orthopedic services are following. No further workup inpatient per orthopedic services. Patient denies chest pain. Patient denies shortness breath. Patient denies nausea vomiting or diarrhea. Patient denies any urinary burning or frequency On 10/10/2021 patient was seen and examined on the telemetry floor, he is alert and oriented 3 in no apparent distress he is complaining mostly of left shoulder pain, and generalized weakness, he stated that pain in his hips has improved, patient is able to stand and walk to the bathroom and back on his own, there is no fever or chills no headache or dizziness no chest pain no shortness of breath no cough no nausea or vomiting no abdominal pain no diarrhea no blood in the stools no burning with urination no frequency or urgency and no hematuria On 10/11/2021 patient is alert and oriented 3. Patient reports some improvement regards to weakness and muscle aches. Dr. templeton consulted for possible muscle biopsy according to note no option for muscle biopsy at this time but tends scheduled early next week. Possible Thursday for muscle biopsy. Patient maintained on high-dose steroids. Patient denies chest pain or shortness breath. Patient denies nausea vomiting or diarrhea. Patient denies any urinary burning frequency On 10/12/2021 patient was seen and examined on the medical floor he is alert and oriented 3 in no apparent distress he is still complaining of pain in the left shoulder and complaining of weakness in bilateral lower extremities-menchaca he denies any complaints there is no fever or chills no headache or dizziness no chest pain no shortness of breath no cough no nausea or vomiting no abdominal pain no diarrhea no blood in the stools no burning with urination no frequency or urgency and no hematuria. CK level is decreasing gradually patient is mainta ined on oral steroids we are still awaiting muscle biopsy at this time On 10/13/2021 patient's alert and oriented 3. CK level trending down 4713. Plans for tentative muscle biopsy on Thursday. Patient reports improvement with lower extremity weakness. Patient denies chest pain or shortness breath. Patient denies nausea vomiting or diarrhea. Patient denies any urinary burning or frequency. [facility] ( Dr Hardy's group) are covering for me starting 10/14/2021 Objective - Vital Signs Vital signs: Vital Signs Temp 97.8 F 10/13/21 04:00 Pulse 88 10/13/21 04:00 Resp 18 10/13/21 04:00 BP 122/73 10/13/21 04:00 Pulse Ox 95 10/13/21 04:00 Intake & Output 10/12/21 10/13/21 10/13/21 18:59 06:59 18:59 Intake Total 240 180 Balance 240 180 Intake: Oral 240 180 Other: Voiding Method Toilet Toilet # Voids 1 1 # Bowel Movements 1 - Exam In general patient is alert and oriented x 3 in no distress HEENT head normocephalic and atraumatic Neck is supple no JVD no goiter no lymphadenopathy no carotid bruit Chest examination is clear to auscultation no crackles no wheezing Cardiac exam reveals regular heart sounds S1 and S2 no gallops no murmurs Abdomen is soft nontender no organomegaly with normal bowel sounds Extremity exam reveals no edema no cyanosis or clubbing Neurological examination reveals generalized muscle weakness, without any focal deficit - Labs CBC & Chem 7: 10/13/21 07:54 10/13/21 07:54 Labs: Abnormal Lab Results - Last 24 Hours (Table) 10/12/21 10/12/21 10/12/21 Range/Units 12:04 16:40 20:47 RBC (4.30-5.90) m/uL Hgb (13.0-17.5) gm/dL Hct (39.0-53.0) % Sodium (137-145) mmol/L Creatinine (0.66-1.25) mg/dL Glucose (74-99) mg/dL POC Glucose (mg/dL) 197 H 318 H 243 H (75-99) mg/dL Calcium (8.4-10.2) mg/dL AST (17-59) U/L ALT (4-49) U/L Creatine Kinase (55-170) U/L Total Protein (6.3-8.2) g/dL Albumin (3.5-5.0) g/dL 10/13/21 10/13/21 10/13/21 Range/Units 06:37 07:54 07:54 RBC 4.21 L (4.30-5.90) m/uL Hgb 12.4 L (13.0-17.5) gm/dL Hct 37.4 L (39.0-53.0) % Sodium 132 L (137-145) mmol/L Creatinine 0.51 L (0.66-1.25) mg/dL Glucose 141 H (74-99) mg/dL POC Glucose (mg/dL) 119 H (75-99) mg/dL Calcium 7.8 L (8.4-10.2) mg/dL AST 268 H (17-59) U/L ALT 167 H (4-49) U/L Creatine Kinase 4713 H* (55-170) U/L Total Protein 5.2 L (6.3-8.2) g/dL Albumin 2.5 L (3.5-5.0) g/dL Assessment and Plan Plan: Upper respiratory infection likely viral, with sore throat, cough and shortness of breath Rhabdomyolysis, with elevated creatinine kinase at 11,556. This is trending down Elevated AST and ALT, will check hepatitis B and C profile Hyponatremia sodium on presentation 128. 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 Will not be able to complete until early next week Further workup in progress per consulting services Will follow closely.
[2021-10-13 20:19] LABS: Glucose,Whole Blood 236 mg/dL (75-99)
[2021-10-14 06:13] LABS: Glucose,Whole Blood 101 mg/dL (75-99)
[2021-10-14] MEDS: INSULIN ASPART (NovoLOG) 100 UNIT/ML VIAL SQ SCH ×4 (06:14→21:02)
[2021-10-14] MEDS: PANTOPRAZOLE 40 MG TABLET PO SCH (06:39)
[2021-10-14 08:17] LABS: Basophils % (A) 0 %; Eosinophils # (A) 0.1 k/uL (0-0.7); Eosinophils % (A) 1 %; HCT 39.8 % (39.0-53.0); Lymphocytes # (A) 1.2 k/uL (1.0-4.8); Lymphocytes % (A) 17 %; MCH 29.3 pg (25.0-35.0); MCHC 32.8 g/dL (31.0-37.0); MCV 89.3 fL (80.0-100.0); Mean Platelet Volume 8.1; Monocytes # (A) 0.5 k/uL (0-1.0); Monocytes % (A) 8 %; Neutrophils # (A) 4.9 k/uL (1.3-7.7); Neutrophils % (A) 73 %; Platelet Count 256 k/uL (150-450); Poikilocytosis Slight; RBC 4.45 m/uL (4.30-5.90); RDW 14.2 % (11.5-15.5); WBC 6.7 k/uL (3.8-10.6)
[2021-10-14 08:48] LABS: ALT 185 U/L (4-49); AST 263 U/L (17-59); African American GFR (CKD) >90 (>60 ml/min/1.73 sqM); Albumin 2.9 g/dL (3.5-5.0); Alkaline Phosphatase 76 U/L (38-126); Anion Gap 6 mmol/L; Blood Urea Nitrogen 10 mg/dL (9-20); Calcium 8.2 mg/dL (8.4-10.2); Carbon Dioxide 26 mmol/L (22-30); Chloride 102 mmol/L (98-107); Glucose 132 mg/dL (74-99); Non-African American GFR(CKD) >90 (>60 ml/min/1.73 sqM); Potassium 3.5 mmol/L (3.5-5.1); Sodium 134 mmol/L (137-145); Total Bilirubin 0.7 mg/dL (0.2-1.3); Total Protein 5.7 g/dL (6.3-8.2)
[2021-10-14] MEDS: CHOLECALCIFEROL 25 MCG (1000 IU) TABLET PO SCH (08:49)
[2021-10-14] MEDS: ENOXAPARIN 40 MG/0.4 ML SYRINGE SQ SCH (08:49)
[2021-10-14] MEDS: predniSONE 20 MG TAB PO SCH (08:49)
[2021-10-14 11:49] LABS: Glucose,Whole Blood 229 mg/dL (75-99)
[2021-10-14 17:12] LABS: Glucose,Whole Blood 287 mg/dL (75-99)
[2021-10-14 20:03] LABS: Glucose,Whole Blood 295 mg/dL (75-99)
--- NOTE | 2021-10-14 20:56 | P.PN ---
Subjective Progress Note Date: 10/14/21 James Reyes, is a year old male who presented to [facility] emergency room with a chief complaint of generalized body ache, cough and shortness of breath, symptoms started 10 days prior to this admission, patient had 3 visits to emergency room due to similar symptoms, he was tested for COVID- 19, influenza A and B, and RSV virus, all these tests were negative, patient condition continued to worsen, patient developed worsening generalized muscle weakness and pain in bilateral hips and shoulder area , during this presentation he had evidence of rhabdomyolysis was elevated creatinine kinase at 11,556 LDH was elevated at 1887, AST 406, ALT 144, d-dimer was also elevated at 0.83, chest x-ray revealed mild bilateral atelectasis, computed tomography scan of the chest did not reveal evidence of pulmonary embolism, computed tomography scan of the abdomen and pelvis revealed fluid collection in the retroperitoneal area, otherwise no significant abnormality, patient was admitted to medical floor for further evaluation and treatment, pulmonary consultation was requested, neurology consultation was requested for 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 Patient denies any significant past medical history, he stated that he was vaccinated for COVID-19 he received the Moderna vaccine in December and January of this year, there is no history of smoking, he drinks alcohol rarely, he stated that he had 3 alcoholic drinks on September 05 and had no alcoholic drinks since then. On 10/08/2021 patient was seen and examined on the telemetry floor he is alert and oriented 3 in no apparent distress he denies any chest pain or shortness of breath there is no fever or chills no dizziness he is complaining of muscle aches and severe weakness, otherwise he denies any complaints at this time. Patient has evidence of rhabdomyolysis and CPK is higher today than yesterday at 12,810, liver enzymes AST and ALT are elevated at 336 and 112 respectively, which is mildly lower than yesterday, C-reactive protein is elevated at 5.9, influenza A and B are negative, rheumatoid factor and LISETTE screen are all negative, hepatitis B screen is negative however Zenia-Lowe virus capsid Ag IgG is positive. At this time neurology pulmonary and infectious disease are following, patient was started on prednisone 60 mg by mouth daily by neurology. MRI of the left shoulder revealed evidence of full thickness tear of the supraspinatus tendon, orthopedic consultation was requested. On 10/09/2021atient is alert and oriented 3. CK down to 7676. Patient aileen ins on steroids. Patient reports minimum improvement while on steroids. Patient maintained on prednisone 60 mg daily. Infectious disease neurology pulmonary and orthopedic services are following. No further workup inpatient per orthopedic services. Patient denies chest pain. Patient denies shortness breath. Patient denies nausea vomiting or diarrhea. Patient denies any urinary burning or frequency On 10/10/2021 patient was seen and examined on the telemetry floor, he is alert and oriented 3 in no apparent distress he is complaining mostly of left shoulder pain, and generalized weakness, he stated that pain in his hips has improved, patient is able to stand and walk to the bathroom and back on his own, there is no fever or chills no headache or dizziness no chest pain no shortness of breath no cough no nausea or vomiting no abdominal pain no diarrhea no blood in the stools no burning with urination no frequency or urgency and no hematuria On 10/11/2021 patient is alert and oriented 3. Patient reports some improvement regards to weakness and muscle aches. Dr. templeton consulted for possible muscle biopsy according to note no option for muscle biopsy at this time but tends scheduled early next week. Possible Thursday for muscle biopsy. Patient maintained on high-dose steroids. Patient denies chest pain or shortness breath. Patient denies nausea vomiting or diarrhea. Patient denies any urinary burning frequency On 10/12/2021 patient was seen and examined on the medical floor he is alert and oriented 3 in no apparent distress he is still complaining of pain in the left shoulder and complaining of weakness in bilateral lower extremities-menchaca he denies any complaints there is no fever or chills no headache or dizziness no chest pain no shortness of breath no cough no nausea or vomiting no abdominal pain no diarrhea no blood in the stools no burning with urination no frequency or urgency and no hematuria. CK level is decreasing gradually patient is maintained on oral steroids we are still awaiting muscle biopsy at this time On 10/13/2021 patient's alert and oriented 3. CK level trending down 4713. Plans for tentative muscle biopsy on Thursday. Patient reports improvement with lower extremity weakness. Patient denies chest pain or shortness breath. Patient denies nausea vomiting or diarrhea. Patient denies any urinary burning or frequency. 10/14/2021 Patient elevated today resting the bed. He currently complains of bilateral quad pain which is a rating a 5/10, he is unable to describe the pain and he states that he is unable to lift his legs off the bed. He has a difficult time getting his legs off the bed, once up though he is able to walk without difficulty. Labs reviewed today include an unremarkable blood count, sodium 134, potassium 3.5, blood glucose 229, AST 263, ALT 185 which is stable from yesterday. Initial PT OT evaluation recommended subacute rehab on discharge however patient's most recent progress note shows the patient is progressing towards meeting goals. Tentative plan for muscle biopsy tomorrow, awaiting con firmation from surgical group. He will also need EMG with NCS upper and lower extremity as outpatient; DEXA scan outpatient, and MRI outpatient which are more specialized examinations. 2-D echo completed showing EF 55-60%. Patient did have an oncology work up this hospital stay which was negative essentially for possible malignancy for a possible underlying dermatomyositis or myositis at this time. Continues on prednisone 60 mg po daily. ROS Constitutional: Denied any fatigue denied any fever. Cardio vascular: denied any chest pain, palpitations Gastrointestinal denied any nausea vomiting Pulmonary: Denied any shortness of breath cough Neurologic denied any new focal deficits, reports generalized muscle weakness, more so in bilateral quads, and left shoulder All inpatient medications were reviewed and appropriate changes in these medications as dictated in the interval history and assessment and plan. PHYSICAL EXAMINATION: GENERAL: The patient is alert and oriented x3, not in any acute distress. Well developed, well nourished. HEENT: Pupils are round and equally reacting to light. EOMI. No scleral icterus. No conjunctival pallor. Normocephalic, atraumatic. No pharyngeal erythema. No thyromegaly. CARDIOVASCULAR: S1 and S2 present. No murmurs, rubs, or gallops. PULMONARY: Chest is clear to auscultation, no wheezing or crackles. ABDOMEN: Soft, nontender, nondistended, normoactive bowel sounds. No palpable organomegaly. MUSCULOSKELETAL: No joint swelling or deformity. EXTREMITIES: No cyanosis, clubbing, or pedal edema. +2 dorsalis pedis pulse bilateral NEUROLOGICAL: Gross neurological examination did not reveal any focal deficits. SKIN: No rashes. Assessment and plan Assessment -Upper respiratory infection likely viral, with sore throat, cough and shortness of breath that have resolved at this time. -Rhabdomyolysis, with elevated creatinine kinase at 11,556. Most recent level 4713. This is trending down -Elevated AST and ALT, hepatitis B and C profile negative -Hyponatremia sodium on presentation 128. Resolved, currently 134 -Generalized muscle weakness and muscle pain, unknown etiology, neurology and infectious disease consultation was requested, workup in progress to rule out possible myositis vs. dermatomyositis -Full-thickness tear of the supraspinatus tendon at greater tuberosity humerus on MRI; no further work-up per ortho inpatient - outpt follow up recommended -Uncontrolled diabetes mellitus type 2 with hyperglycemia; most recent A1c - 10.0; previous 6.3 -Dyslipidemia At this time patient is admitted to medical floor, telemetry discontinued Infectious disease, neurology, pulmonary and orthopedic service is following Myositis panel is pending - was sent out to [facility] Patient maintained on prednisone Surgical service is consulted for possible muscle biopsy. Further workup in progress per consulting services Rheumatology, neurology, and orthopedic follow up outpatient Will follow closely. Objective - Vital Signs Vital signs: Vital Signs Temp 98.0 F 10/14/21 08:00 Pulse 94 10/14/21 08:00 Resp 16 10/14/21 08:00 BP 120/57 10/14/21 08:00 Pulse Ox 95 10/14/21 08:00 Intake & Output 10/13/21 10/14/21 10/14/21 18:59 06:59 18:59 Intake Total 540 810 118 Balance 540 810 118 Intake: Intake, IV Titration 810 Amount Sodium Chloride 0.9% 1, 810 000 ml @ 150 mls/hr IV . Q6H40M [facility] Rx#:[id number] Oral 540 118 Other: Voiding Method Toilet Toilet # Voids 2 1 # Bowel Movements 1 - Labs CBC & Chem 7: 10/14/21 07:47 10/14/21 07:47 Labs: Abnormal Lab Results - Last 24 Hours (Table) 10/13/21 10/13/21 10/13/21 Range/Units 07:54 07:54 11:43 ESR 59 H (0-15) mm/hr Sodium (137-145) mmol/L Creatinine (0.66-1.25) mg/dL Glucose (74-99) mg/dL POC Glucose (mg/dL) 181 H (75-99) mg/dL Calcium (8.4-10.2) mg/dL AST (17-59) U/L ALT (4-49) U/L CK-MB (CK-2) (0.0-2.4) ng/mL C-Reactive Protein 2.6 H (<1.0) mg/dL Total Protein (6.3-8.2) g/dL Albumin (3.5-5.0) g/dL 10/13/21 10/13/21 10/14/21 Range/Units 16:44 20:18 06:11 ESR (0-15) mm/hr Sodium (137-145) mmol/L Creatinine (0.66-1.25) mg/dL Glucose (74-99) mg/dL POC Glucose (mg/dL) 237 H 236 H 101 H (75-99) mg/dL Calcium (8.4-10.2) mg/dL AST (17-59) U/L ALT (4-49) U/L CK-MB (CK-2) (0.0-2.4) ng/mL C-Reactive Protein (<1.0) mg/dL Total Protein (6.3-8.2) g/dL Albumin (3.5-5.0) g/dL 10/14/21 10/14/21 Range/Units 07:47 07:47 ESR (0-15) mm/hr Sodium 134 L (137-145) mmol/L Creatinine 0.52 L (0.66-1.25) mg/dL Glucose 132 H (74-99) mg/dL POC Glucose (mg/dL) (75-99) mg/dL Calcium 8.2 L (8.4-10.2) mg/dL AST 263 H (17-59) U/L ALT 185 H (4-49) U/L CK-MB (CK-2) 8.7 H (0.0-2.4) ng/mL C-Reactive Protein (<1.0) mg/dL Total Protein 5.7 L (6.3-8.2) g/dL Albumin 2.9 L (3.5-5.0) g/dL
[2021-10-14] MEDS: SODIUM CHLORIDE 0.9% 1,000 ML IV SCH ×2 (23:45→23:46)
[2021-10-15 06:10] LABS: Glucose,Whole Blood 128 mg/dL (75-99)
[2021-10-15] MEDS: INSULIN ASPART (NovoLOG) 100 UNIT/ML VIAL SQ SCH ×4 (06:12→20:34)
[2021-10-15] MEDS: PANTOPRAZOLE 40 MG TABLET PO SCH (06:29)
--- NOTE | 2021-10-15 07:33 | P.PN ---
Subjective Progress Note Date: 10/14/21 CHIEF COMPLAINT: Muscle weakness HISTORY OF PRESENT ILLNESS: The patient is a 45-year-old male admitted for muscle weakness of the lower extremities for suspected rhabdomyolysis. He is able to ambulate. Reports difficulty in getting out of bed but he is able to walk. He complains of tolerable muscle aches. ROS: No reports of nausea and vomiting. No bowel movements. No fevers or chills. No new chest pain. PHYSICAL EXAM: VITAL SIGNS: Reviewed CONSTITUTIONAL: Well developed and in no acute distress. EYES: Conjuctivae without sclera icterus. Extraocular movements grossly intact. HEAD, EARS, NOSE, THROAT: Moist buccal mucosa. Head is atraumatic, normocephalic. Hears conversational speech. No nasal drainage. RESPIRATORY: Non-labored respirations and equal bilateral excursions. CARDIOVASCULAR: Palpable 2+ radial pulses. ABDOMEN: No peritonitis. MUSCULOSKELETAL: No gross deformity of the lower extremities noted. No clubbing. No cyanosis. SKIN: Good skin turgor. Well perfused. NEUROLOGIC: Cranial nerves II through XII grossly intact. No focal or lateralizing signs. PSYCH: Appropriate affect. Alert and oriented to person, place and time. CLINICAL LABS: Reviewed. WBC normal 6.7. Hemoglobin stable 13.0. ASSESSMENT: 1. Rhabdomyolysis with generalized muscle weakness PLAN: 1. Reviewed the logistics of attempting muscle biopsy. 2. Will need arrangement with referring laboratory including histology lab. 3. Coordination of care with referring surgeon Objective - Vital Signs Vital signs: Vital Signs Temp 98.0 F 10/14/21 08:00 Pulse 94 10/14/21 12:00 Resp 18 10/14/21 12:00 BP 128/71 10/14/21 12:00 Pulse Ox 93 L 10/14/21 12:00 Intake & Output 10/14/21 10/14/21 10/15/21 06:59 18:59 06:59 Intake Total 810 736 Balance 810 736 Intake: Intake, IV Titration 810 Amount Sodium Chloride 0.9% 1, 810 000 ml @ 150 mls/hr IV . Q6H40M [facility] Rx#:[id number] Oral 736 Other: Voiding Method Toilet # Voids 1 # Bowel Movements 1 - Labs CBC & Chem 7: 10/14/21 07:47 10/14/21 07:47 Labs: Abnormal Lab Results - Last 24 Hours (Table) 10/13/21 10/14/21 10/14/21 Range/Units 20:18 06:11 07:47 Sodium 134 L (137-145) mmol/L Creatinine 0.52 L (0.66-1.25) mg/dL Glucose 132 H (74-99) mg/dL POC Glucose (mg/dL) 236 H 101 H (75-99) mg/dL Calcium 8.2 L (8.4-10.2) mg/dL AST 263 H (17-59) U/L ALT 185 H (4-49) U/L CK-MB (CK-2) (0.0-2.4) ng/mL Total Protein 5.7 L (6.3-8.2) g/dL Albumin 2.9 L (3.5-5.0) g/dL 10/14/21 10/14/21 10/14/21 Range/Units 07:47 11:48 17:10 Sodium (137-145) mmol/L Creatinine (0.66-1.25) mg/dL Glucose (74-99) mg/dL POC Glucose (mg/dL) 229 H 287 H (75-99) mg/dL Calcium (8.4-10.2) mg/dL AST (17-59) U/L ALT (4-49) U/L CK-MB (CK-2) 8.7 H (0.0-2.4) ng/mL Total Protein (6.3-8.2) g/dL Albumin (3.5-5.0) g/dL
[2021-10-15] MEDS: SODIUM CHLORIDE 0.9% 1,000 ML IV SCH ×3 (08:04→17:03)
[2021-10-15] MEDS: predniSONE 20 MG TAB PO SCH (08:04)
[2021-10-15] MEDS: CHOLECALCIFEROL 25 MCG (1000 IU) TABLET PO SCH (08:04)
[2021-10-15] MEDS: ENOXAPARIN 40 MG/0.4 ML SYRINGE SQ SCH (08:05)
[2021-10-15 09:50] LABS: ALT 152 U/L (4-49); AST 176 U/L (17-59); African American GFR (CKD) >90 (>60 ml/min/1.73 sqM); Albumin 2.6 g/dL (3.5-5.0); Alkaline Phosphatase 60 U/L (38-126); Anion Gap 6 mmol/L; Blood Urea Nitrogen 11 mg/dL (9-20); Carbon Dioxide 25 mmol/L (22-30); Chloride 103 mmol/L (98-107); Glucose 168 mg/dL (74-99); Non-African American GFR(CKD) >90 (>60 ml/min/1.73 sqM); Potassium 3.4 mmol/L (3.5-5.1); Sodium 134 mmol/L (137-145); Total Bilirubin 0.7 mg/dL (0.2-1.3); Total Protein 5.1 g/dL (6.3-8.2)
--- NOTE | 2021-10-15 11:00 | P.PN ---
Subjective Progress Note Date: 10/14/21 Patient was initially seen and followed up by Dr. Trino Feldman. I have taken over service from today. Patient states that he developed progressive weakness in the lower extremities, that started about 3 weeks ago. It has been getting worse. Prior to the 3 weeks, he was perfectly fine. He has visited to the hospital 3 times. He has difficulty picking up his legs. Denies any weakness in the upper extremities except left shoulder because of a torn rotator cuff. He denies any falls. He states that he torn left rotator cuff when he was laying on the floor and pushed himself up, felt a pop. He has soreness in the muscles. He was suspected Covid, but was tested multiple times and was negative each time. Patient denies any problem with urine control, no urgency frequency or incontinence. Telemetry monitoring showing sinus rhythm with heart rate between 80-90. PVCs and PACs. WORK-UP: CK level is 11,556-->[place] [address]-->7676-->6090 ESR: 60->58->62 CRP is 4.4->3.5 Lactate Dehydrogenase is 1887. Aldolase 49.3 (1.2-7.6) TSH: 2.580 AST of 406 and ALT of 144. latest AST 297 and ALT 149 Ammonia: <9. Magnesium 1.8 Ionized Calcium 4.6 (low normal). Vitamin B12: 742 Serum Folate: 14.30 Calcium is 7.0 Hemoglobin A1c: 10.0 (prior was 6.3 on 09/17/2021) RF: <10 HCV RNA not detected HIV 1/2 abs non-reactive. HIV 24 ab non-reactive Hepatitis Panel is negative LISETTE is negative Anti-DNA ab is negative STATION [employer]ATOR antibody is negative Anti-holt antibody is negative Reba-1 Abs negative SSA and SSB Abs is negative Hep Bs Ab nonreactive Urinalysis is negative for urinary tract infection but has L4 positive for ketones and 4 positive for glucose. Bey virus is nondetected. Influenza A and RNA/POCR (respectively) are as nondetected CT of the abdomen and pelvis root is reported as bilateral retroperitoneal edema extending from the lower pole of both kidneys into the pelvis presacral region. Clinical significance is not clear. MRI shoulder L with and without: Is reported as there is evidence for full- thickness tear of the supraspinatus tendon at the greater tuberosity humerus. No retraction. No significant subacromial impingement. No evidence of any significant joint effusion. There is muscle enhancement involving the s upraspinatus and infraspinatus and teres minor consistent with some nonspecific myositis. CT chest w/ and w/o: Bilateral basilar linear infiltrates and atelectasis which appear slightly increased compared to yesterday. No suspicious pulmonary mass. Normal heart. 2D echo: As reported as left ventricular size is normal. Moderate concentric left ventricle hypertrophy. Ejection fraction of 55-60%. Objective - Vital Signs Vital signs: Vital Signs Temp 98.0 F 10/14/21 08:00 Pulse 94 10/14/21 12:00 Resp 18 10/14/21 12:00 BP 128/71 10/14/21 12:00 Pulse Ox 93 L 10/14/21 12:00 Intake & Output 10/13/21 10/14/21 10/14/21 18:59 06:59 18:59 Intake Total 540 810 618 Balance 540 810 618 Intake: Intake, IV Titration 810 Amount Sodium Chloride 0.9% 1, 810 000 ml @ 150 mls/hr IV . Q6H40M [facility] Rx#:[id number] Oral 540 618 Other: Voiding Method Toilet Toilet # Voids 2 1 # Bowel Movements 1 - Exam Patient is a middle aged male, in no acute distress. Patient is alert awake oriented to time place and person. Speech and language functions are normal. Attention, concentration and fund of knowledge is adequate. On cranial examination, pupils are round and reacting to light, visual english are full on confrontation, extraocular muscles are intact with no nystagmus. Face is symmetric, tongue protrudes to the midline. Palatal elevation and sensation normal, hearing and shoulder shrug normal, facial sensation normal. Shoulder shrug normal. On muscle strength testing, there is no pronator drift and the strength is normal in both arms distally and proximally, except left shoulder which is weak from rotator cuff tear, and which was not checked because of pain. In the lower extremities patient has symmetric proximal muscle weakness including hip flexion is 2, adduction 5-, abduction 4 with significant pain in the anterior lateral thigh region bilaterally. Knee extension 5, ankle dorsiflexion 5. Deep tendon reflexes are trace in the upper limbs, 1+ at the knees, 1 at ankles and plantar is downgoing on the right, possible up on the left. Sensory to touch is equal with no neglect. Cerebellar function showed no ataxia for [id number] testing. No dysdiadochokinesia. Tone and bulk of muscles normal. Gait deferred. On general examination, there is no carotid bruit or murmur, S1-S2 audible. Abdomen is soft nontender. Chest is clear. Peripheral pulses are present. No edema. - Labs CBC & Chem 7: 10/14/21 07:47 10/15/21 08:56 Labs: Abnormal Lab Results - Last 24 Hours (Table) 10/13/21 10/13/21 10/14/21 Range/Units 16:44 20:18 06:11 Sodium (137-145) mmol/L Creatinine (0.66-1.25) mg/dL Glucose (74-99) mg/dL POC Glucose (mg/dL) 237 H 236 H 101 H (75-99) mg/dL Calcium (8.4-10.2) mg/dL AST (17-59) U/L ALT (4-49) U/L CK-MB (CK-2) (0.0-2.4) ng/mL Total Protein (6.3-8.2) g/dL Albumin (3.5-5.0) g/dL 10/14/21 10/14/21 10/14/21 Range/Units 07:47 07:47 11:48 Sodium 134 L (137-145) mmol/L Creatinine 0.52 L (0.66-1.25) mg/dL Glucose 132 H (74-99) mg/dL POC Glucose (mg/dL) 229 H (75-99) mg/dL Calcium 8.2 L (8.4-10.2) mg/dL AST 263 H (17-59) U/L ALT 185 H (4-49) U/L CK-MB (CK-2) 8.7 H (0.0-2.4) ng/mL Total Protein 5.7 L (6.3-8.2) g/dL Albumin 2.9 L (3.5-5.0) g/dL Assessment and Plan Assessment: * Predominately proximal bilateral lower extremity weakness with significant amount of muscular pain, edema, unclear etiology, myositis, perhaps viral syndrome. Dr. Feldman has noticed skin rash over right chest, face (now resolved), concerned for dermatomyositis. * CT of the abdomen and pelvis is reported as bilateral retroperitoneal edema extending from the lower pole of both kidneys into the pelvis presacral region. Recommend ruling out any mass. * Moderate hepatopathy (presented with ASA 406 and ALT 144 on initial presentation)---slight trending down * Full-thickness tear of the supraspinatus tendon at the greater tuberosity humerus on MRI * Diabetes, recent onset, at present uncontrolled. Hemoglobin A1c 9.5. Previous A1c on 09/17/2020 was 6.3. * Acute rhabdoymolysis likely due to myopathy/myositis * Acute mild to moderate hyponatremia * Dyslipidemia Plan: * Patient currently on Prednisone 60mg daily, initiated by Dr. Feldman. Await muscle biopsy. Started on IV protonix 40mg daily. Recommend close sugar monitoring and will defer that to the primary team. Hemoglobin A1c 9.5. * Ordered repeat CK, * ESR 59 and CRP 2.6. * Pending antiPM/SCL-100 and antimitochondrial abs. * Ordered myositis panel on 10/10/21 (send out to [facility]). * Please avoid any statins at this time. * Recommend EMG with NCS of upper and lower extremity as Outpatient [facility] (it is difficulty to get EMG with NCS at different facilities as inpatient). * Full-thickness tear of the supraspinatus tendon at the greater tuberosity humerus on MRI: Primary team consulted Orthopetic team. * Regarding reported as bilateral retroperitoneal edema extending from the lower pole of both kidneys into the pelvis presacral region per CT abdomen/Plevis will defer further management to the primary team. * Consulted Dr. Vaughan (general surgeon) for muscle biopsy (left shoulder, arm and right thigh). Will happen this coming up week per surgery team. * Hematology oncology input appreciated. * Started the patient on Vitamin D3 1000U daily. Recommend DEXA scan as outpatient. * Infection disease is consulted by primary team for possible ??viral infection. * Await Rheumatology team. * Physical therapy and occupation therapy * Will defer the rest of medical management to the primary team. * Upon discharge the patient needs to follow-up with neuromuscular clinic (either [facility] and call [phone] and follow-up with Dr. Alfonso Pierre vs [facility] [phone] vs at [facility]) and [facility] [employer] within 1-2 weeks as outpatient.
[2021-10-15 12:07] LABS: Glucose,Whole Blood 182 mg/dL (75-99)
[2021-10-15 17:01] LABS: Glucose,Whole Blood 249 mg/dL (75-99)
--- NOTE | 2021-10-15 19:30 | P.PN ---
Subjective Progress Note Date: 10/15/21 10/15/2021: Patient was seen for a follow-up. Patient's mother was also present today. States he is feeling slightly better. No new concerns. Patient is sitting in the recliner. 10/14/2021: Patient was initially seen and followed up by Dr. Trino Feldman. I have taken over service from today. Patient states that he developed progressive weakness in the lower extremities, that started about 3 weeks ago. It has been getting worse. Prior to the 3 weeks, he was perfectly fine. He has visited to the hospital 3 times. He has difficulty picking up his legs. Denies any weakness in the upper extremities except left shoulder because of a torn rotator cuff. He denies any falls. He states that he torn left rotator cuff when he was laying on the floor and pushed himself up, felt a pop. He has soreness in the muscles. He was suspected Covid, but was tested multiple times and was negative each time. Patient denies any problem with urine control, no urgency frequency or incontinence. Telemetry monitoring showing sinus rhythm with heart rate between 80-90. PVCs and PACs. WORK-UP: CK level is 11,556-->[place] [address]-->7676-->6090 ESR: 60->58->62 CRP is 4.4->3.5 Lactate Dehydrogenase is 1887. Aldolase 49.3 (1.2-7.6) TSH: 2.580 AST of 406 and ALT of 144. latest AST 297 and ALT 149 Ammonia: <9. Magnesium 1.8 Ionized Calcium 4.6 (low normal). Vitamin B12: 742 Serum Folate: 14.30 Calcium is 7.0 Hemoglobin A1c: 10.0 (prior was 6.3 on 09/17/2021) RF: <10 HCV RNA not detected HIV 1/2 abs non-reactive. HIV 24 ab non-reactive Hepatitis Panel is negative LISETTE is negative Anti-DNA ab is negative MARBLE CUTTER antibody is negative Anti-holt antibody is negative Reba-1 Abs negative SSA and SSB Abs is negative Hep Bs Ab nonreactive Urinalysis is negative for urinary tract infection but has L4 positive for ketones and 4 positive for glucose. Bey virus is nondetected. Influenza A and RNA/POCR (respectively) are as nondetected CT of the abdomen and pelvis root is reported as bilateral retroperitoneal edema extending from the lower pole of both kidneys into the pelvis presacral region. Clinical significance is not clear. MRI shoulder L with and without: Is reported as there is evidence for full- thickness tear of the supraspinatus tendon at the greater tuberosity humerus. No retraction. No significant subacromial impingement. No evidence of any significant joint effusion. There is muscle enhancement involving the supra spinatus and infraspinatus and teres minor consistent with some nonspecific myositis. CT chest w/ and w/o: Bilateral basilar linear infiltrates and atelectasis which appear slightly increased compared to yesterday. No suspicious pulmonary mass. Normal heart. 2D echo: As reported as left ventricular size is normal. Moderate concentric left ventricle hypertrophy. Ejection fraction of 55-60%. Objective - Vital Signs Vital signs: Vital Signs Temp 97.7 F 10/15/21 16:59 Pulse 83 10/15/21 16:59 Resp 16 10/15/21 16:59 BP 125/85 10/15/21 16:59 Pulse Ox 95 10/15/21 16:59 Intake & Output 10/15/21 10/15/21 10/16/21 06:59 18:59 06:59 Intake Total 3090 118 Balance 3090 118 Intake: Intake, IV Titration 1650 Amount Sodium Chloride 0.9% 1, 1650 000 ml @ 150 mls/hr IV . Q6H40M [facility] Rx#:[id number] Oral 1440 118 Other: Voiding Method Toilet Toilet # Voids 1 3 - Exam Patient is a middle aged male, in no acute distress. Patient is alert awake oriented to time place and person. Speech and language functions are normal. Attention, concentration and fund of knowledge is adequate. On cranial examination, pupils are round and reacting to light, visual english are full on confrontation, extraocular muscles are intact with no nystagmus. Face is symmetric, tongue protrudes to the midline. Palatal elevation and sensation normal, hearing and shoulder shrug normal, facial sensation normal. Shoulder shrug normal. On muscle strength testing, there is no pronator drift and the strength is normal in both arms distally and proximally, except left shoulder which is weak from rotator cuff tear, and which was not checked because of pain. In the lower extremities patient has symmetric proximal muscle weakness, which has improved as compared to yesterday. Patient's hip flexion is 4/4-4+, adduction 5/5, abduction 4+5-/4+5-. Knee extension 5, ankle dorsiflexion 5. Deep tendon reflexes are trace in the upper limbs, 1+ at the knees, 1 at ankles and plantar is downgoing on the right, possible up on the left. Sensory to touch is equal with no neglect. Cerebellar function showed no ataxia for [id number] testing. No dysdiadochokinesia. Tone and bulk of muscles normal. Gait deferred. On general examination, there is no carotid bruit or murmur, S1-S2 audible. Abdomen is soft nontender. Chest is clear. Peripheral pulses are present. No edema. - Labs CBC & Chem 7: 10/14/21 07:47 10/15/21 08:56 Labs: Abnormal Lab Results - Last 24 Hours (Table) 10/14/21 10/14/21 10/15/21 Range/Units 07:40 20:01 06:09 Sodium (137-145) mmol/L Potassium (3.5-5.1) mmol/L Creatinine (0.66-1.25) mg/dL Glucose (74-99) mg/dL POC Glucose (mg/dL) 295 H 128 H (75-99) mg/dL Hemoglobin A1c 9.5 H (4.0-6.0) % Calcium (8.4-10.2) mg/dL AST (17-59) U/L ALT (4-49) U/L Creatine Kinase (55-170) U/L Total Protein (6.3-8.2) g/dL Albumin (3.5-5.0) g/dL 10/15/21 10/15/21 10/15/21 Range/Units 08:56 08:56 12:06 Sodium 134 L (137-145) mmol/L Potassium 3.4 L (3.5-5.1) mmol/L Creatinine 0.51 L (0.66-1.25) mg/dL Glucose 168 H (74-99) mg/dL POC Glucose (mg/dL) 182 H (75-99) mg/dL Hemoglobin A1c (4.0-6.0) % Calcium 8.0 L (8.4-10.2) mg/dL AST 176 H (17-59) U/L ALT 152 H (4-49) U/L Creatine Kinase 1507 H* (55-170) U/L Total Protein 5.1 L (6.3-8.2) g/dL Albumin 2.6 L (3.5-5.0) g/dL 10/15/21 Range/Units 16:59 Sodium (137-145) mmol/L Potassium (3.5-5.1) mmol/L Creatinine (0.66-1.25) mg/dL Glucose (74-99) mg/dL POC Glucose (mg/dL) 249 H (75-99) mg/dL Hemoglobin A1c (4.0-6.0) % Calcium (8.4-10.2) mg/dL AST (17-59) U/L ALT (4-49) U/L Creatine Kinase (55-170) U/L Total Protein (6.3-8.2) g/dL Albumin (3.5-5.0) g/dL Assessment and Plan Assessment: * Predominately proximal bilateral lower extremity weakness with significant amount of muscular pain, edema, unclear etiology, myositis, perhaps viral syndrome. Dr. Feldman has noticed skin rash over right chest, face (now resolved), concerned for dermatomyositis. * CT of the abdomen and pelvis is reported as bilateral retroperitoneal edema extending from the lower pole of both kidneys into the pelvis presacral region. Recommend ruling out any mass. * Moderate hepatopathy (presented with ASA 406 and ALT 144 on initial presentation)---slight trending down * Full-thickness tear of the supraspinatus tendon at the greater tuberosity humerus on MRI * Diabetes, recent onset, at present uncontrolled. Hemoglobin A1c 9.5. Previous A1c on 09/17/2020 was 6.3. * Acute rhabdoymolysis likely due to myopathy/myositis * Acute mild to moderate hyponatremia * Dyslipidemia Plan: * Patient currently on Prednisone 60mg daily, initiated by Dr. Feldman. Await muscle biopsy. Started on IV protonix 40mg daily. Recommend close sugar monitoring and will defer that to the primary team. Hemoglobin A1c 9.5. * Repeat CK further down to 1507, continue to follow the trend. His muscle strength has much improved today as compared to yesterday. * ESR 59 and CRP 2.6. * Pending antiPM/SCL-100 and antimitochondrial abs. * Ordered myositis panel on 10/10/21 (send out to [facility]). * Please avoid any statins at this time. * Recommend EMG with NCS of upper and lower extremity as Outpatient [facility] (it is difficulty to get EMG with NCS at different facilities as inpatient). * Full-thickness tear of the supraspinatus tendon at the greater tuberosity humerus on MRI: Primary team consulted Orthopetic team. * Regarding reported as bilateral retroperitoneal edema extending from the lower pole of both kidneys into the pelvis presacral region per CT abdomen/Plevis will defer further management to the primary team. * Patient to undergo a muscle biopsy in a.m. Perhaps right quadriceps, and if possibility of 2 sites, then right biceps as well. * Hematology oncology input appreciated. * Infection disease is consulted by primary team for possible ??viral infection. * Await Rheumatology team. * Physical therapy and occupation therapy * Will defer the rest of medical management to the primary team. * Upon discharge the patient needs to follow-up with neuromuscular clinic (either [facility] and call [phone] and follow-up with Dr. Alfonso Pierre vs [facility] [phone] [facility]) and [employer] within 1-2 weeks as outpatient.
[2021-10-15] MEDS ORDERED: Potassium Replacement Protocol 1 EACH MISC MISCELLANE PRN (19:48)
--- NOTE | 2021-10-15 19:58 | P.PN ---
Subjective Progress Note Date: 10/15/21 James Reyes, is a year old male who presented to [facility] emergency room with a chief complaint of generalized body ache, cough and shortness of breath, symptoms started 10 days prior to this admission, patient had 3 visits to emergency room due to similar symptoms, he was tested for COVID- 19, influenza A and B, and RSV virus, all these tests were negative, patient condition continued to worsen, patient developed worsening generalized muscle weakness and pain in bilateral hips and shoulder area , during this presentation he had evidence of rhabdomyolysis was elevated creatinine kinase at 11,556 LDH was elevated at 1887, AST 406, ALT 144, d-dimer was also elevated at 0.83, chest x-ray revealed mild bilateral atelectasis, computed tomography scan of the chest did not reveal evidence of pulmonary embolism, computed tomography scan of the abdomen and pelvis revealed fluid collection in the retroperitoneal area, otherwise no significant abnormality, patient was admitted to medical floor for further evaluation and treatment, pulmonary consultation was requested, neurology consultation was requested for 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 Patient denies any significant past medical history, he stated that he was vaccinated for COVID-19 he received the Moderna vaccine in December and January of this year, there is no history of smoking, he drinks alcohol rarely, he stated that he had 3 alcoholic drinks on September 05 and had no alcoholic drinks since then. On 10/08/2021 patient was seen and examined on the telemetry floor he is alert and oriented 3 in no apparent distress he denies any chest pain or shortness of breath there is no fever or chills no dizziness he is complaining of muscle aches and severe weakness, otherwise he denies any complaints at this time. Patient has evidence of rhabdomyolysis and CPK is higher today than yesterday at 12,810, liver enzymes AST and ALT are elevated at 336 and 112 respectively, which is mildly lower than yesterday, C-reactive protein is elevated at 5.9, influenza A and B are negative, rheumatoid factor and LISETTE screen are all negative, hepatitis B screen is negative however Zenia-Lowe virus capsid Ag IgG is positive. At this time neurology pulmonary and infectious disease are following, patient was started on prednisone 60 mg by mouth daily by neurology. MRI of the left shoulder revealed evidence of full thickness tear of the supraspinatus tendon, orthopedic consultation was requested. On 10/09/2021atient is alert and oriented 3. CK down to 7676. Patient aileen ins on steroids. Patient reports minimum improvement while on steroids. Patient maintained on prednisone 60 mg daily. Infectious disease neurology pulmonary and orthopedic services are following. No further workup inpatient per orthopedic services. Patient denies chest pain. Patient denies shortness breath. Patient denies nausea vomiting or diarrhea. Patient denies any urinary burning or frequency On 10/10/2021 patient was seen and examined on the telemetry floor, he is alert and oriented 3 in no apparent distress he is complaining mostly of left shoulder pain, and generalized weakness, he stated that pain in his hips has improved, patient is able to stand and walk to the bathroom and back on his own, there is no fever or chills no headache or dizziness no chest pain no shortness of breath no cough no nausea or vomiting no abdominal pain no diarrhea no blood in the stools no burning with urination no frequency or urgency and no hematuria On 10/11/2021 patient is alert and oriented 3. Patient reports some improvement regards to weakness and muscle aches. Dr. templeton consulted for possible muscle biopsy according to note no option for muscle biopsy at this time but tends scheduled early next week. Possible Thursday for muscle biopsy. Patient maintained on high-dose steroids. Patient denies chest pain or shortness breath. Patient denies nausea vomiting or diarrhea. Patient denies any urinary burning frequency On 10/12/2021 patient was seen and examined on the medical floor he is alert and oriented 3 in no apparent distress he is still complaining of pain in the left shoulder and complaining of weakness in bilateral lower extremities-menchaca he denies any complaints there is no fever or chills no headache or dizziness no chest pain no shortness of breath no cough no nausea or vomiting no abdominal pain no diarrhea no blood in the stools no burning with urination no frequency or urgency and no hematuria. CK level is decreasing gradually patient is maintained on oral steroids we are still awaiting muscle biopsy at this time On 10/13/2021 patient's alert and oriented 3. CK level trending down 4713. Plans for tentative muscle biopsy on Thursday. Patient reports improvement with lower extremity weakness. Patient denies chest pain or shortness breath. Patient denies nausea vomiting or diarrhea. Patient denies any urinary burning or frequency. 10/14/2021 Patient elevated today resting the bed. He currently complains of bilateral quad pain which is a rating a 5/10, he is unable to describe the pain and he states that he is unable to lift his legs off the bed. He has a difficult time getting his legs off the bed, once up though he is able to walk without difficulty. Labs reviewed today include an unremarkable blood count, sodium 134, potassium 3.5, blood glucose 229, AST 263, ALT 185 which is stable from yesterday. Initial PT OT evaluation recommended subacute rehab on discharge however patient's most recent progress note shows the patient is progressing towards meeting goals. Tentative plan for muscle biopsy tomorrow, awaiting con firmation from surgical group. He will also need EMG with NCS upper and lower extremity as outpatient; DEXA scan outpatient, and MRI outpatient which are more specialized examinations. 2-D echo completed showing EF 55-60%. Patient did have an oncology work up this hospital stay which was negative essentially for possible malignancy for a possible underlying dermatomyositis or myositis at this time. Continues on prednisone 60 mg po daily. 10/15/2021 Muscle biopsy was not done today. Patient should be able to be discharged home tomorrow after muscle biopsy. Current Ck level is 1507, which is improved from yesterday. Sodium 134, potassium 3.4, blood sugars in the 200s, AST 176, ALT 152. Muscle strength slightly improved from yesterday, pt states he is still unable to get his legs to the edge of the bed in order to get up and start walking. He still has some tight peripheral edema. Equal strength noted with flexion and extension of foot, patient encourage to exercise his legs while in bed, continue to pump and to sit up in the chair. Vital signs include temp 97.7, heart rate 83, blood pressure 125/85, 95% on room air. Continues on prednisone 60 mg po daily. ROS Constitutional: Denied any fatigue denied any fever. Cardio vascular: denied any chest pain, palpitations Gastrointestinal denied any nausea vomiting Pulmonary: Denied any shortness of breath cough Neurologic denied any new focal deficits, reports generalized muscle weakness, more so in bilateral quads, and left shoulder All inpatient medications were reviewed and appropriate changes in these medications as dictated in the interval history and assessment and plan. PHYSICAL EXAMINATION: GENERAL: The patient is alert and oriented x3, not in any acute distress. Well developed, well nourished. HEENT: Pupils are round and equally reacting to light. EOMI. No scleral icterus. No conjunctival pallor. Normocephalic, atraumatic. No pharyngeal erythema. No thyromegaly. CARDIOVASCULAR: S1 and S2 present. No murmurs, rubs, or gallops. PULMONARY: Chest is clear to auscultation, no wheezing or crackles. ABDOMEN: Soft, nontender, nondistended, normoactive bowel sounds. No palpable organomegaly. MUSCULOSKELETAL: No joint swelling or deformity. EXTREMITIES: No cyanosis, clubbing, lower extremity peripheral edema. +2 dorsalis pedis pulse bilateral NEUROLOGICAL: Gross neurological examination did not reveal any focal deficits. SKIN: No rashes. Assessment and plan Assessment -Upper respiratory infection likely viral, with sore throat, cough and shortness of breath that have resolved at this time. -Rhabdomyolysis, with elevated creatinine kinase at 11,556. current level 1507 -Elevated AST and ALT, hepatitis B and C profile negative -Hyponatremia sodium on presentation 128. Resolved, currently 134 -Generalized muscle weakness and muscle pain, unknown etiology, neurology and infectious disease consultation was requested, workup in progress to rule out possible myositis vs. dermatomyositis -Full-thickness tear of the supraspinatus tendon at greater tuberosity humerus on MRI; no further work-up per ortho inpatient - outpt follow up recommended -Uncontrolled diabetes mellitus type 2 with hyperglycemia; most recent A1c - 10.0; previous 6.3 -Dyslipidemia At this time patient is admitted to medical floor, telemetry discontinued Infectious disease, neurology, pulmonary and orthopedic service is following Myositis panel is pending - was sent out to [facility] Patient maintained on prednisone Surgical service is consulted for muscle biopsy which will be tomorrow. Further workup in progress per consulting services Rheumatology, neurology, and orthopedic follow up outpatient Will follow closely. Objective - Vital Signs Vital signs: Vital Signs Temp 97.8 F 10/15/21 08:11 Pulse 93 10/15/21 08:11 Resp 17 10/15/21 08:11 BP 124/71 10/15/21 08:11 Pulse Ox 93 L 10/15/21 08:11 Intake & Output 10/14/21 10/15/21 10/15/21 18:59 06:59 18:59 Intake Total 736 270 Balance 736 270 Intake: Intake, IV Titration 150 Amount Sodium Chloride 0.9% 1, 150 000 ml @ 150 mls/hr IV . Q6H40M [facility] Rx#:[id number] Oral 736 120 Other: Voiding Method Toilet Toilet Toilet # Voids 1 1 # Bowel Movements 1 - Labs CBC & Chem 7: 10/14/21 07:47 10/15/21 08:56 Labs: Abnormal Lab Results - Last 24 Hours (Table) 10/14/21 10/14/21 10/14/21 Range/Units 07:40 11:48 17:10 Sodium (137-145) mmol/L Potassium (3.5-5.1) mmol/L Creatinine (0.66-1.25) mg/dL Glucose (74-99) mg/dL POC Glucose (mg/dL) 229 H 287 H (75-99) mg/dL Hemoglobin A1c 9.5 H (4.0-6.0) % Calcium (8.4-10.2) mg/dL AST (17-59) U/L ALT (4-49) U/L Total Protein (6.3-8.2) g/dL Albumin (3.5-5.0) g/dL 10/14/21 10/15/21 10/15/21 Range/Units 20:01 06:09 08:56 Sodium 134 L (137-145) mmol/L Potassium 3.4 L (3.5-5.1) mmol/L Creatinine 0.51 L (0.66-1.25) mg/dL Glucose 168 H (74-99) mg/dL POC Glucose (mg/dL) 295 H 128 H (75-99) mg/dL Hemoglobin A1c (4.0-6.0) % Calcium 8.0 L (8.4-10.2) mg/dL AST 176 H (17-59) U/L ALT 152 H (4-49) U/L Total Protein 5.1 L (6.3-8.2) g/dL Albumin 2.6 L (3.5-5.0) g/dL
[2021-10-15 20:27] LABS: Glucose,Whole Blood 236 mg/dL (75-99)
[2021-10-15] MEDS: POTASSIUM CHLORIDE ER 20 MEQ TAB.ER PO SCH (20:34)
[2021-10-15 20:37] VITALS: RESP 18
[2021-10-16 04:19] VITALS: TEMP 97.6
[2021-10-16] MEDS: SODIUM CHLORIDE 0.9% 1,000 ML IV SCH ×2 (06:18→06:20)
[2021-10-16 06:28] LABS: Glucose,Whole Blood 119 mg/dL (75-99)
[2021-10-16] MEDS: INSULIN ASPART (NovoLOG) 100 UNIT/ML VIAL SQ SCH ×2 (06:32→12:19)
[2021-10-16] MEDS: PANTOPRAZOLE 40 MG TABLET PO SCH (06:37)
[2021-10-16 08:24] LABS: African American GFR (CKD) >90 (>60 ml/min/1.73 sqM); Anion Gap 4 mmol/L; Blood Urea Nitrogen 11 mg/dL (9-20); Calcium 8.6 mg/dL (8.4-10.2); Carbon Dioxide 29 mmol/L (22-30); Chloride 102 mmol/L (98-107); Glucose 119 mg/dL (74-99); Non-African American GFR(CKD) >90 (>60 ml/min/1.73 sqM); Potassium 3.8 mmol/L (3.5-5.1); Sodium 135 mmol/L (137-145)
[2021-10-16] MEDS: predniSONE 20 MG TAB PO SCH (08:46)
[2021-10-16] MEDS: CHOLECALCIFEROL 25 MCG (1000 IU) TABLET PO SCH (08:47)
[2021-10-16 08:53] VITALS: BP 118/66; PULSE 83
[2021-10-16 12:03] LABS: Glucose,Whole Blood 217 mg/dL (75-99)
--- NOTE | 2021-10-16 12:12 | P.PN ---
Progress Note - Text Progress Note Date: 10/15/21 The patient remained stable. He still has some lower extremity weakness. Patient states that he may be undergoing muscle biopsy by Dr. Baeza today. On exam her vital signs are stable. Abdomen soft. Lower extremity weakness. Patient apparently is scheduled with Dr. Baeza for muscle biopsy.
--- NOTE | 2021-10-16 12:14 | P.PN ---
Progress Note - Text Progress Note Date: 10/16/21 Patient remains unchanged. He states his weakness has improved in his lower extremity. On exam vital signs are stable. Abdomen soft. The patient will be scheduled for a muscle biopsy on Thursday if still needed. Due to the holiday week he'll be difficult to arrange appropriate laboratory requirements for muscle biopsy this week.
[2021-10-16] MEDS: ENOXAPARIN 40 MG/0.4 ML SYRINGE SQ SCH (12:19)
[2021-10-16 17:23] LABS: Glucose,Whole Blood 275 mg/dL (75-99)
[2021-10-16] MEDS ORDERED: INSULIN DETEMIR (LEVEMIR) 100 UNIT/ML SYR SQ SCH (21:00)
== END 2021-10-16 18:07 | disposition home or self-care (01) | DRG 558 ==
LOC: EC 13:06 → 3SCARD 15:38
PROVIDERS: ADMIT Internal Medicine; ATTEND Internal Medicine
DX: M62.82 Rhabdomyolysis (principal); E87.1 Hypo-osmolality and hyponatremia; J98.11 Atelectasis; D69.6 Thrombocytopenia, unspecified; E09.9 Drug or chemical induced diabetes mellitus without complications; Z20.822 Contact with and (suspected) exposure to COVID-19; B34.9 Viral infection, unspecified; T38.0X5A Adverse effect of glucocorticoids and synthetic analogues, initial encounter; M75.122 Complete rotator cuff tear or rupture of left shoulder, not specified as traumatic; B27.00 Gammaherpesviral mononucleosis without complication; E78.5 Hyperlipidemia, unspecified; E66.9 Obesity, unspecified; Z68.34 Body mass index [BMI] 34.0-34.9, adult; R26.2 Difficulty in walking, not elsewhere classified; I49.3 Ventricular premature depolarization; Z79.899 Other long term (current) drug therapy; Z90.89 Acquired absence of other organs; Z87.19 Personal history of other diseases of the digestive system; Z71.3 Dietary counseling and surveillance; Z98.890 Other specified postprocedural states; Z82.49 Family history of ischemic heart disease and other diseases of the circulatory system; Z83.3 Family history of diabetes mellitus; Z80.0 Family history of malignant neoplasm of digestive organs
CPT/HCPCS: 36415; 71046; 71270; 71275; 74177; 80048; 80053; 80074; 80306; 81001; 82085; 82140; 82248; 82330; 82550; 82553; 82607; 82728; 82746; 83036; 83516; 83605; 83615; 83625; 83735; 83880; 84145; 84443; 84484; 85025; 85379; 85610; 85652; 85730; 86038; 86140; 86225; 86235; 86308; 86431; 86644; 86645; 86663; 86664; 86665; 86706; 87390; 87502; 87521; 87635; 93005; 93306; 96361; 96374; 99285

== ENCOUNTER → 2022-01-08 | Outpatient (CLI) | payer OTHER ==
[2022-01-08 13:57] LABS: Basophils # (A) 0.01 X 10*3/uL (0.00-0.10); Basophils % (A) 0.2 %; Eosinophils % (A) 2.3 %; HCT 44.4 % (39.6-50.0); HGB 14.7 g/dL (13.0-17.0); Immature Grans, Automated 0.2 %; Lymphocytes # (A) 0.99 X 10*3/uL (0.90-5.00); Lymphocytes % (A) 23.1 %; MCH 27.9 pg (27.0-32.0); MCHC 33.1 g/dL (32.0-37.0); MCV 84.3 fL (80.0-97.0); Mean Platelet Volume 11.3 fL (9.5-12.2); Monocytes # (A) 0.44 X 10*3/uL (0.20-1.00); Monocytes % (A) 10.3 %; NRBC Per 100 WBC 0 /100 WBCS (0.0-0.0); Neutrophils # (A) 2.74 X 10*3/uL (1.80-7.70); Neutrophils % (A) 63.9 %; Platelet Count 217 X 10*3/uL (140-440); RBC 5.27 X 10*6/uL (4.40-5.60); RDW 13.2 % (11.5-14.5); WBC 4.29 X 10*3/uL (4.50-10.00)
[2022-01-08 14:43] LABS: Carbon Dioxide 22.9 mmol/L (20.0-27.5)
== END | disposition home or self-care (01) ==
LOC: LABPAT 09:10
PROVIDERS: ATTEND Orthopaedic Surgery
DX: Z01.812 Encounter for preprocedural laboratory examination (principal); M75.42 Impingement syndrome of left shoulder
CPT/HCPCS: 80051; 85025

== ENCOUNTER 2024-03-22 09:10 | Emergency (ER) | payer BC, OTHER ==
--- NOTE | 2024-03-22 10:20 | ED ---
ENT HPI - General Chief complaint: ENT Stated complaint: Hard time breathing R nostril/sore Time Seen by Provider: 03/22/24 09:25 Source: patient, RN notes reviewed Mode of arrival: ambulatory Limitations: no limitations - History of Present Illness Initial comments: 48-year-old male presents emergency department chief complaint of right nostril pain. Patient states started last 2 days. States started as a small bump states that it is worsened. Patient states feels swollen in his right nostril denies any fevers or chills has had prior nasal surgery denies any drainage no trauma. - Related Data Previous Rx's Medication Instructions Recorded Cholecalciferol [Vitamin D3 (25 25 mcg PO DAILY #30 tablet 10/16/21 Mcg = 1000 Iu)] Pantoprazole [Protonix] 40 mg PO AC-BRKFST #30 tab 10/16/21 metFORMIN HCL [Glucophage] 500 mg PO BID #60 tab 10/16/21 HYDROcodone/APAP 7.5-325MG [[place] 1 each PO Q6HR PRN #28 tab 01/20/22 7.5] Amoxic-Pot Clav 875-125Mg 1 tab PO Q12HR #20 tab 03/22/24 [Augmentin 875-125] Mupirocin 2% Oint [Bactroban 2% 1 applic TOPICAL TID #22 gm 03/22/24 Oint] Allergies Allergy/AdvReac Type Severity Reaction Status Date / Time No Known Allergies Allergy Verified 03/22/24 09:18 Review of Systems ROS Statement: Those systems with pertinent positive or pertinent negative responses have been documented in the HPI. ROS Other: All systems not noted in ROS Statement are negative. Past Medical History Past Medical History: Diabetes Mellitus Additional Past Medical History / Comment(s): Varicose veins. Muscle soreness, weakness - Rhabdomyolysis. History of Any Multi-Drug Resistant Organisms: None Reported Past Surgical History: Hernia Repair Additional Past Surgical History / Comment(s): sinus surgery Past Anesthesia/Blood Transfusion Reactions: No Reported Reaction Past Psychological History: No Psychological Hx Reported Smoking Status: Never smoker Past Alcohol Use History: None Reported Past Drug Use History: None Reported - Past Family History Father Family Medical History: Congestive Heart Failure (CHF) Additional Family Medical History / Comment(s): Aneurysms. Father is 65 yrs old. Mother Family Medical History: No Reported History Additional Family Medical History / Comment(s): Mother is 63 yrs old. General Exam Limitations: no limitations General appearance: alert, in no apparent distress Head exam: Present: atraumatic, normocephalic, normal inspection Eye exam: Present: normal appearance, PERRL, EOMI. Absent: scleral icterus, conjunctival injection, periorbital swelling ENT exam: Present: normal oropharynx, mucous membranes moist, TM's normal bilaterally, normal external ear exam, other (Right nostril there is swelling, erythema and early abscess formation) Neck exam: Present: normal inspection, full ROM. Absent: tenderness, meningismus, lymphadenopathy Respiratory exam: Present: normal lung sounds bilaterally. Absent: respiratory distress, wheezes, rales, rhonchi, stridor Cardiovascular Exam: Present: regular rate, normal rhythm, normal heart sounds. Absent: systolic murmur, diastolic murmur, rubs, gallop, clicks Course Vital Signs 03/22/24 09:16 Temperature 97.5 F L Pulse Rate 87 Respiratory 20 Rate Blood Pressure 162/98 O2 Sat by Pulse 99 Oximetry Medical Decision Making - Medical Decision Making Was pt. sent in by a medical professional or institution (, PA, MOTORCOACH DRIVER, urgent care, hospital, or custodial...) When possible be specific @ -No Did you speak to anyone other than the patient for history (EMS, parent, family, police, friend...)? What history was obtained from this source @ -No Did you review nursing and triage notes (agree or disagree)? Why? @ -I reviewed and agree with nursing and triage notes Were old charts reviewed (outside hosp., previous admission, EMS record, old EKG, old radiological studies, urgent care reports/EKG's, custodial records)? Report findings @ -No old charts were reviewed Differential Diagnosis (chest pain, altered mental status, abdominal pain women, abdominal pain men, vaginal bleeding, weakness, fever, dyspnea, syncope, headache, dizziness, GI bleed, back pain, seizure, CVA, palpatations, mental health, musculoskeletal)? @ -Sinus infection, nasal infection COVID 19, RSV, influenza, pneumonia, acute bronchitis, URI, this list is not all inclusive EKG interpreted by me (3pts min.). @ -None X-rays interpreted by me (1pt min.). @ -None done CT interpreted by me (1pt min.). @ -None done U/S interpreted by me (1pt. min.). @ -None done What testing was considered but not performed or refused? (CT, X-rays, U/S, labs)? Why? @ -None What meds were considered but not given or refused? Why? @ -None Did you discuss the management of the patient with other professionals (professionals i.e. Dr., PA, MOTORCOACH DRIVER, lab, RT, psych nurse, social welfare research worker, system designer, teacher, freedom of information officer, case packer and sealer)? Give summary @ -No Was smoking cessation discussed for >3mins.? @ -No Was critical care preformed (if so, how long)? @ -No Were there social determinants of health that impacted care today? How? (Homelessness, low income, unemployed, alcoholism, drug addiction, transportation, low edu. Level, literacy, decrease access to med. care, senior living, rehab)? @ -No Was there de-escalation of care discussed even if they declined (Discuss DNR or withdrawal of care, Hospice)? DNR status @ -No What co-morbidities impacted this encounter? (DM, HTN, Smoking, COPD, CAD, Cancer, CVA, ARF, Chemo, Hep., AIDS, mental health diagnosis, sleep apnea, morbid obesity)? @ -None Was patient admitted / discharged? Hospital course, mention meds given and route, prescriptions, significant lab abnormalities, going to OR and other pertinent info. @ -Discharge patient has swelling of the right nostril probable early formation of nasal abscess will place on mupirocin ointment and antibiotics follow-up with Dr. Verdin as he is seen and had surgery in the past. Undiagnosed new problem with uncertain prognosis? @ -No Drug Therapy requiring intensive monitoring for toxicity (Heparin, Nitro, Insulin, Cardizem)? @ -No Were any procedures done? @ -No Diagnosis/symptom? @ -Nasal abscess Acute, or Chronic, or Acute on Chronic? @ -Acute Uncomplicated (without systemic symptoms) or Complicated (systemic symptoms)? @ -Uncomplicated Side effects of treatment? @ -No Exacerbation, Progression, or Severe Exacerbation? @ -No Poses a threat to life or bodily function? How? (Chest pain, [place], [place], pneumonia, PE, COPD, DKA, ARF, appy, cholecystitis, CVA, Diverticulitis, Homicidal, Suicidal, threat to staff... and all critical care pts) @ -No Disposition Clinical Impression: Nasal abscess Disposition: HOME SELF-CARE Condition: Stable Instructions (If sedation given, give patient instructions): Abscess (ED) Additional Instructions: Please return to the Emergency Department if symptoms worsen or any other concerns. Apply warm compresses to the area as directed Prescriptions: Amoxic-Pot Clav 875-125Mg [Augmentin 875-125] 1 tab PO Q12HR #20 tab Mupirocin 2% Oint [Bactroban 2% Oint] 1 applic TOPICAL TID #22 gm Is patient prescribed a controlled substance at d/c from ED?: No Referrals: Ema Mccall MD [Primary Care Provider] - 1-2 days Panda Roblero MD [STAFF PHYSICIAN] - 1-2 days Time of Disposition: 10:19
[2024-03-22] MEDS: AMOXIC-POT CLAV 875-125MG 1 EACH TAB PO STA (10:29)
[2024-03-22 11:04] VITALS: BP 159/96; PULSE 84; RESP 18; TEMP 97.6
== END 2024-03-22 10:30 | disposition home or self-care (01) ==
LOC: EC 09:10
DX: J32.9 Chronic sinusitis, unspecified (principal)
CPT/HCPCS: 99282; 99283

== ENCOUNTER → 2025-04-11 | Outpatient (CLI) | payer OTHER ==
--- NOTE | 2025-04-11 12:11 | XR ---
EXAMINATION TYPE: XR elbow complete LT DATE OF EXAM: 04/11/2025 11:48 AM COMPARISON: CLINICAL INDICATION: Male, 49 years old with history of S53.402S UNSPECIFIED SPRAIN OF LEFT ELBOW, IN ITIAL; PHH, pain TECHNIQUE: 3 views FINDINGS: Small spurring or ossific density measuring 5 mm at the medial epicondyle. No elbow joint effusion. M inimal early spurring at the trochlear joint. No acute fracture, subluxation, or dislocation. IMPRESSION: 1. Some spurring or ossific density measuring 5 mm of the medial epicondyle. Findings suggest tendino arturo at the common flexor tendon origin. Correlate for any point tenderness. 2. Otherwise, no acute osseous abnormality seen. [facility], Workstation: [id number], 04/11/2025 12:09 PM
== END | disposition home or self-care (01) ==
LOC: RADXRMAIN 11:13
PROVIDERS: ATTEND Emergency Medicine
DX: S53.402A Unspecified sprain of left elbow, initial encounter (principal); X58.XXXA Exposure to other specified factors, initial encounter

== ENCOUNTER → 2025-04-19 | Outpatient (CLI) | payer OTHER ==
--- NOTE | 2025-04-27 13:06 | MR ---
EXAMINATION TYPE: MR elbow LT wo con DATE OF EXAM: 04/19/2025 9:32 PM COMPARISON: Plain film CLINICAL INDICATION: Male, 49 years old with history of S53.402D; PHH, Left elbow pain, swelling, not able to straighten, Injured 04-11-2025 picked up a box and LT elbow popped TECHNIQUE: Multiplanar multi-sequence imaging was performed of the elbow joint. No gadolinium given. FINDINGS: Ligaments and tendons: There is high PD's signal tracking along the biceps tendon as it in serts on the radial tuberosity. There is high-grade partial grade tear of the long head of the biceps with complete tear of the short head of the biceps tendon insertion series 701 image 23 with intersu bstance tear/longitudinal extending more superiorly. The tendon remains intact. The lateral ulnar co llateral ligament, annular ligament, and lateral collateral ligament are intact. The common flexor t endon, brachialis tendon, and triceps tendon are within normal limits. Osseous structures: The bone marrow signal intensity is unremarkable. A small amount of joint fluid is noted. IMPRESSION: High-grade partial tear of the long head of the biceps tendon near its insertion with complete tear o f the short head of the biceps tendon. There is associated edema and soft tissue swelling. [facility], , 04/27/2025 1:03 PM
== END | disposition home or self-care (01) ==
LOC: RADMRIMAIN 20:45
PROVIDERS: ATTEND Emergency Medicine
DX: S46.111A Strain of muscle, fascia and tendon of long head of biceps, right arm, initial encounter (principal)